=== PATIENT | male | born 1960 | race Caucasian/White ===

== ENCOUNTER 2017-03-31 14:07 | Inpatient (IN) | payer OTHER ==
[2017-03-31] MEDS ORDERED: ACTIVASE ONE (14:21)
[2017-03-31 14:25] LABS: Basophils % (Auto) 0.5 % (0.0-1.8); Eosinophils % (Auto) 0.6 % (0.0-4.3); Hematocrit 45.3 % (35.5-45.6); Hemoglobin 14.9 gm/dl (11.8-15.2); Mean Corpuscular HGB Conc 33 % (32-34); Mean Corpuscular Hemoglobin 31 pg (28-32); Mean Corpuscular Volume 94 fl (84-94); Platelet Count 265 K/mm3 (140-440); Red Blood Count 4.85 M/mm3 (3.65-5.03); Red Cell Distribution Width 13.7 % (13.2-15.2); White Blood Count 11.8 K/mm3 (4.5-11.0)
--- NOTE | 2017-03-31 14:30 | Cat Scan Report ---
FINAL REPORT PROCEDURE: CT HEAD/BRAIN WO CON TECHNIQUE: Computerized tomography of the head was performed without contrast material. HISTORY: R facial droop, R sided weakness COMPARISON: No prior studies are available for comparison. FINDINGS: Brain: There is no evidence of intracranial hemorrhage. No parenchymal hemorrhage is seen. No mass lesions or mass effect is identified. No abnormal extra-axial fluid collections or masses are seen. Small old lacunar infarct visualized in the right caudate nucleus anterior medially and in the right periventricular white matter. Density of the intracranial circulation appears fairly symmetric. There is some decreased density seen in the periventricular white matter without mass effect. This is fairly symmetric and does not exhibit any mass effect consistent with gliosis probably on the basis of microvascular disease or white matter changes of aging. Ventricles: The ventricles, sulcal pattern and fissures are prominent consistent with atrophy. Bones: No evidence of acute fracture. Paranasal sinuses: There is mild mucosal thickening in the inferior aspect of the right maxillary sinus. The paranasal sinuses otherwise appear clear. Mastoid air cells: clear IMPRESSION: Small old lacunar infarcts present on the right as described. There is evidence of mild atrophy and gliosis. No acute intracranial abnormalities are seen. If symptoms persist or worsen consider follow-up CT scan or MRI for further evaluation.
[2017-03-31] MEDS ORDERED: NORMODYNE IV ONE ×2 (14:31→14:45)
[2017-03-31 14:36] LABS: INR 0.95 (0.87-1.13)
[2017-03-31 14:37] LABS: Partial Thromboplastin Time 26.6 Sec. (24.2-36.6)
[2017-03-31] MEDS ORDERED: NACL 0.9% 50 ML ONE (14:39)
[2017-03-31 14:45] LABS: Anion Gap 16 mmol/L; BUN/Creatinine Ratio 13.07; Blood Urea Nitrogen 17 mg/dL (9-20); Carbon Dioxide 25 mmol/L (22-30); Chloride 101.3 mmol/L (98-107); Glucose 147 mg/dL (75-100); Potassium 3.6 mmol/L (3.6-5.0); Sodium 139 mmol/L (137-145)
[2017-03-31] MEDS ORDERED: ACTIVASE IV ONE ×2 (14:49)
[2017-03-31] MEDS ORDERED: NACL 0.9% IV ONE (14:49)
[2017-03-31] MEDS ORDERED: NACL ONE (15:13)
[2017-03-31] MEDS: CARDENE 50 MG in NACL 0.9% 250ML 230 ML IV SCH (15:35)
--- NOTE | 2017-03-31 16:20 | Cat Scan Report ---
FINAL REPORT PROCEDURE: CT ANGIO HEAD TECHNIQUE: Computerized tomographic angiography of the head was performed during the IV injection of iodinated nonionic contrast including image processing. The image data was postprocessed using 2-dimensional multiplanar reformatted (MPR) and 3-dimensional (MIP and/or volume rendered) techniques. HISTORY: large vessel stroke COMPARISON: No prior studies are available for comparison. FINDINGS: Minimal calcified plaquing seen in the left carotid siphon. The right carotid siphon is widely patent. Middle cerebral arteries bilaterally are widely patent. No evidence for occlusion. No changes are seen that would suggest aneurysm or vascular malformation. A1 segments and anterior cerebral arteries bilaterally appear widely patent. There is a very small caliber right vertebral artery and a dominant left vertebral artery. The basilar artery is widely patent. Both posterior cerebral arteries are widely patent. No abnormal enhancing lesions are seen in the brain parenchyma. No evidence of intracranial hemorrhage. Dural sinuses appear to be patent as well. IMPRESSION: Anterior and posterior circulation appear intact. No focal occlusion. No changes seen that would suggest aneurysm or vascular malformation. There is minimal atherosclerotic change seen in the left carotid siphon which otherwise appears widely patent. There is a dominant left vertebral artery, normal variant.
--- NOTE | 2017-03-31 16:25 | Cat Scan Report ---
FINAL REPORT PROCEDURE: CT ANGIO NECK TECHNIQUE: Computerized tomographic angiography of the neck was performed after the IV injection of iodinated nonionic contrast including image processing. The image data was postprocessed using 2-dimensional multiplanar reformatted (MPR) and 3-dimensional (MIP and/or volume rendered) techniques. HISTORY: large vessel stroke COMPARISON: No prior studies are available for comparison. Note: Assessment of carotid artery stenosis is based on measurement of the distal internal carotid artery diameter as the denominator for stenosis calculations and the [place] Symptomatic Carotid Endarterectomy Trial (NASCET) stenosis criteria . CPT 3100F FINDINGS: There is minimal calcified plaquing at the origin of the left subclavian artery. There is a common trunk for the brachiocephalic artery and the left common carotid artery. This is a normal variant. The origins appear widely patent. The common carotid arteries bilaterally are widely patent. There is a small amount a calcified plaquing visualized in the proximal end of the right internal carotid artery without significant stenosis. The left carotid bulb and left internal carotid artery are widely patent. There is a dominant left vertebral artery which appears widely patent. There is a small caliber right vertebral artery. This is a normal variant. IMPRESSION: Minimal plaquing seen proximal end of the right internal carotid artery. The carotid systems bilaterally are otherwise widely patent. Vertebral arteries are patent. There is a dominant left vertebral artery, normal variant.
--- NOTE | 2017-03-31 16:42 | Emergency Department Report ---
ED Neuro Deficit HPI - General Chief Complaint: Neuro Symptoms/Deficit Stated Complaint: POSS STROKE Time Seen by Provider: 03/31/17 14:08 Source: patient, EMS Mode of arrival: Stretcher Limitations: Other - History of Present Illness Initial Comments: 56-year-old male presents to the emergency department via EMS for evaluation of possible stroke. Patient states that at 11 AM this morning, he developed right- sided facial droop, slurred speech, and weakness in his right arm and leg. Symptoms have remained constant since onset. EMS reports that the patient's blood sugar was markedly elevated with a systolic pressure greater than 240. He had a normal fingerstick blood glucose. There are no other complaints. -: Sudden, This morning Time: 11:00 Last Observed Normal: 11:00 Location: speech, right face, right arm, right leg Presenting Symptoms: Present: Weak/Paralyzed One Side, Facial Droop/Numbness, Unable to Speak Clearly History of same: No Place: home Severity: severe Quality: weak, constant Improves With: none Worsens With: none On Anticoagulants: No Context: sudden onset Associated Symptoms: denies other symptoms Treatments Prior to Arrival: none - Related Data Home Medications: Home Medications Medication Instructions Recorded Confirmed Last Taken No Known Home Medications [No 03/31/17 03/31/17 Unknown Reported Home Medications] Allergies/Adverse Reactions: Allergies Allergy/AdvReac Type Severity Reaction Status Date / Time No Known Allergies Allergy Unverified 03/31/17 14:32 ED Review of Systems ROS: Stated complaint: POSS STROKE Other details as noted in HPI Comment: All other systems reviewed and negative Neurological: as per HPI, weakness ED Past Medical Hx - Past Medical History Previous Medical History?: Yes Hx Hypertension: Yes (noncompliant with meds x 1 year) - Surgical History Past Surgical History?: No - Family History Family history: no significant - Social History Smoking Status: Never Smoker Substance Use Type: None - Medications Home Medications: Home Medications Medication Instructions Recorded Confirmed Last Taken Type No Known Home Medications [No 03/31/17 03/31/17 Unknown History Reported Home Medications] ED Neuro Physical Exam - General Limitations: Other General appearance: alert, in no apparent distress Suspected Stroke: Yes - Head Head exam: Present: atraumatic, normocephalic - Eye Eye exam: Present: normal appearance, PERRL, EOMI - ENT ENT exam: Present: normal exam, normal orophraynx, mucous membranes moist - Neck Neck exam: Present: normal inspection, full ROM. Absent: tenderness - Respiratory Respiratory exam: Present: normal lung sounds bilaterally. Absent: respiratory distress - Cardiovascular Cardiovascular Exam: Present: regular rate, normal rhythm, normal heart sounds - GI/Abdominal GI/Abdominal exam: Present: soft, normal bowel sounds. Absent: distended, tenderness - Extremities Exam Extremities exam: Present: normal inspection, full ROM. Absent: tenderness - Back Exam Back exam: Present: normal inspection, full ROM. Absent: tenderness - Neurological Exam Neurological exam: Present: alert, oriented X3, motor sensory deficit (right facial droop, slurred speech, 1/5 strength right upper and right lower extremity. 5/5 strength left upper and lower extremity. Sensation grossly intact) - NIHSS Assessment Interval: Baseline 1a. Level of Consciousness: alert 1b. LOC Questions: answers correctly 1c. LOC Commands: performs tasks correctly 2. Best Gaze: normal 3. Visual: no visual loss 4. Facial Palsy: partial paralysis 5b. Motor Arm Right: no movement 5a. Motor Arm Left: no drift 6a. Motor Leg Left: no drift 6b. Motor Leg Right: no gravity effort 7. Limb Ataxia: absent 8. Sensory: normal 9. Best Language: no aphasia 10. Dysarthria: severe dysarthria 11. Extinction/Inattention: no abnormality Total Score: 11 Stroke Severity: Moderate Stroke - Skin Skin exam: Present: warm, dry, intact ED Course Vital Signs 03/31/17 03/31/17 03/31/17 14:17 14:20 14:26 Pulse Rate 103 H 100 H 104 H Pulse Rate [ Right Arm] Respiratory 15 18 20 Rate Respiratory Rate [Right Arm ] Blood Pressure 188/120 188/120 Blood Pressure [Left Arm] Blood Pressure [Right Arm] O2 Sat by Pulse 97 96 Oximetry O2 Sat by Pulse Oximetry [ Right Arm] 03/31/17 03/31/17 03/31/17 14:28 14:30 14:37 Pulse Rate 98 H 88 98 H Pulse Rate [ Right Arm] Respiratory 18 15 Rate Respiratory Rate [Right Arm ] Blood Pressure 188/120 205/131 188/120 Blood Pressure [Left Arm] Blood Pressure [Right Arm] O2 Sat by Pulse 96 96 Oximetry O2 Sat by Pulse Oximetry [ Right Arm] 03/31/17 03/31/17 03/31/17 14:38 14:45 14:47 Pulse Rate 78 98 H Pulse Rate [ Right Arm] Respiratory 18 15 Rate Respiratory Rate [Right Arm ] Blood Pressure 174/107 186/117 Blood Pressure [Left Arm] Blood Pressure [Right Arm] O2 Sat by Pulse 96 96 Oximetry O2 Sat by Pulse Oximetry [ Right Arm] 03/31/17 03/31/17 03/31/17 14:56 15:00 15:11 Pulse Rate 75 Pulse Rate [ 74 Right Arm] Respiratory 15 Rate Respiratory 13 Rate [Right Arm ] Blood Pressure 174/107 153/95 Blood Pressure 174/107 [Left Arm] Blood Pressure 153/95 [Right Arm] O2 Sat by Pulse 95 Oximetry O2 Sat by Pulse 96 Oximetry [ Right Arm] 03/31/17 03/31/17 03/31/17 15:24 15:26 15:30 Pulse Rate 74 80 Pulse Rate [ Right Arm] Respiratory 16 Rate Respiratory Rate [Right Arm ] Blood Pressure 185/109 185/109 Blood Pressure [Left Arm] Blood Pressure 153/98 [Right Arm] O2 Sat by Pulse 96 Oximetry O2 Sat by Pulse Oximetry [ Right Arm] 03/31/17 03/31/17 03/31/17 15:41 15:45 15:56 Pulse Rate 88 Pulse Rate [ 83 86 Right Arm] Respiratory 15 Rate Respiratory 16 15 Rate [Right Arm ] Blood Pressure 168/105 Blood Pressure [Left Arm] Blood Pressure 188/107 168/105 [Right Arm] O2 Sat by Pulse 98 Oximetry O2 Sat by Pulse 97 97 Oximetry [ Right Arm] 03/31/17 03/31/17 16:00 16:11 Pulse Rate 85 Pulse Rate [ Right Arm] Respiratory 13 Rate Respiratory Rate [Right Arm ] Blood Pressure 149/94 Blood Pressure [Left Arm] Blood Pressure 149/94 [Right Arm] O2 Sat by Pulse 96 Oximetry O2 Sat by Pulse Oximetry [ Right Arm] - Lab Data Result diagrams: 03/31/17 Unknown 03/31/17 Unknown Lab Results 03/31/17 03/31/17 03/31/17 Range/Units Unknown Unknown Unknown WBC 11.8 H (4.5-11.0) K/mm3 RBC 4.85 (3.65-5.03) M/mm3 Hgb 14.9 (11.8-15.2) gm/dl Hct 45.3 (35.5-45.6) % MCV 94 (84-94) fl MCH 31 (28-32) pg MCHC 33 (32-34) % RDW 13.7 (13.2-15.2) % Plt Count 265 (140-440) K/mm3 Lymph % (Auto) 9.5 L (13.4-35.0) % [place] % (Auto) 4.9 (0.0-7.3) % Eos % (Auto) 0.6 (0.0-4.3) % Baso % (Auto) 0.5 (0.0-1.8) % Lymph # 1.1 L (1.2-5.4) K/mm3 [place] # 0.6 (0.0-0.8) K/mm3 Eos # 0.1 (0.0-0.4) K/mm3 Baso # 0.1 (0.0-0.1) K/mm3 Seg Neutrophils % 84.5 H (40.0-70.0) % Seg Neutrophils # 10.0 H (1.8-7.7) K/mm3 PT 12.6 (12.2-14.9) Sec. INR 0.95 (0.87-1.13) APTT 26.6 (24.2-36.6) Sec. Thrombin Time (15.1-19.6) Sec. Sodium 139 (137-145) mmol/L Potassium 3.6 (3.6-5.0) mmol/L Chloride 101.3 (98-107) mmol/L Carbon Dioxide 25 (22-30) mmol/L Anion Gap 16 mmol/L BUN 17 (9-20) mg/dL Creatinine 1.3 (0.8-1.5) mg/dL Estimated GFR 58 ml/min BUN/Creatinine Ratio 13.07 % Glucose 147 H (75-100) mg/dL Calcium 9.0 (8.4-10.2) mg/dL Troponin T < 0.010 (0.00-0.029) ng/mL 03/31/17 Range/Units Unknown WBC (4.5-11.0) K/mm3 RBC (3.65-5.03) M/mm3 Hgb (11.8-15.2) gm/dl Hct (35.5-45.6) % MCV (84-94) fl MCH (28-32) pg MCHC (32-34) % RDW (13.2-15.2) % Plt Count (140-440) K/mm3 Lymph % (Auto) (13.4-35.0) % [place] % (Auto) (0.0-7.3) % Eos % (Auto) (0.0-4.3) % Baso % (Auto) (0.0-1.8) % Lymph # (1.2-5.4) K/mm3 [place] # (0.0-0.8) K/mm3 Eos # (0.0-0.4) K/mm3 Baso # (0.0-0.1) K/mm3 Seg Neutrophils % (40.0-70.0) % Seg Neutrophils # (1.8-7.7) K/mm3 PT (12.2-14.9) Sec. INR (0.87-1.13) APTT (24.2-36.6) Sec. Thrombin Time 16.6 (15.1-19.6) Sec. Sodium (137-145) mmol/L Potassium (3.6-5.0) mmol/L Chloride (98-107) mmol/L Carbon Dioxide (22-30) mmol/L Anion Gap mmol/L BUN (9-20) mg/dL Creatinine (0.8-1.5) mg/dL Estimated GFR ml/min BUN/Creatinine Ratio % Glucose (75-100) mg/dL Calcium (8.4-10.2) mg/dL Troponin T (0.00-0.029) ng/mL - EKG Data -: EKG Interpreted by Ri EKG shows normal: sinus rhythm, axis, intervals, ST-T waves Rate: normal When compared to previous EKG there are: previous EKG unavailable Interpretation: other (inferior infarct, age undetermined) - Radiology Data Radiology results: report reviewed, image reviewed CT of the head is discussed with the radiologist. No acute intracranial findings are noted. - Medical Decision Making Code stroke was activated on patient's arrival. Patient was hypertensive, but blood pressure responded to IV labetalol. Teleneurologist has evaluated the patient and consent has been obtained for TPA administration. Per neurology request, CTA of the head and neck have also been obtained showing no large vessel obstruction. Cardene drip has been ordered to maintain systolic blood pressure less than 185 mmHg and diastolic blood pressure less than 110 mmHg. Patient is to be admitted by the hospitalist. - Differential Diagnosis stroke, ICH Critical Care Time: Yes Critical care time in (mins) excluding proc time.: 90 Critical care attestation.: If time is entered above; I have spent that time in minutes in the direct care of this critically ill patient, excluding procedure time. Critical Care Time: The high probability of a clinically significant, sudden or life threatening deterioration of the cardiovascular and neurologic system(s) required my full and direct attention, intervention and personal management. The aggregate critical care time was 90 minutes. This time is in addition to time spent performing reported procedures but includes the following: [x] Data Review and interpretation [x] Patient assessment and monitoring of vital signs [x] Documentation [x] Medication orders and management ED Disposition Clinical Impression: Stroke Qualifiers: CVA mechanism: thrombosis Precerebral and cerebral artery: unspecified cerebral artery Qualified Code(s): I63.30 - Cerebral infarction due to thrombosis of unspecified cerebral artery Disposition: -09 OP ADMIT IP TO THIS HOSP Is pt being admited?: Yes Condition: Stable Time of Disposition: 17:16
[2017-03-31] MEDS ORDERED: ALUM-MAG HYDROX-SIMETH 200-200-20MG/5ML PO PRN (18:01)
[2017-03-31] MEDS ORDERED: MILK OF MAGNESIA PO PRN ×2 (18:01→18:03)
[2017-03-31] MEDS ORDERED: DULCOLAX PR PRN ×2 (18:01→18:03)
[2017-03-31] MEDS ORDERED: PHENERGAN PR PRN (18:03)
[2017-03-31] MEDS ORDERED: SODIUM CHLORIDE FLUSH SYRINGE 10 ML IV PRN (18:03)
[2017-03-31] MEDS ORDERED: ZOFRAN IV PRN (18:03)
[2017-03-31] MEDS ORDERED: REGLAN PO PRN (18:03)
--- NOTE | 2017-03-31 18:09 | History and Physical Report ---
History of Present Illness Date of examination: 03/31/17 Date of admission: 03/31/17 Chief complaint: Right sided numbness and weakness History of present illness: A 56-year-old male presents to the ER via EMS from home with right-sided numbness and weakness. Patient reported this morning after he reached home from work, he developed right-sided numbness, facial droop, slurred speech, and weakness in his right arm and leg. Patient also reported early during the week he had one episode where he felt his right leg was weak and described it as fell asleep not for a long time. It is very difficult to obtain a history from the patient because he is a poor historian and is exhibiting dysarthria and has what appears to be expressive aphasia. Patient denies headache, chest pain, fever, chills, nausea, vomiting, shortness of breath, abdominal pain. EMS reported patient had elevated systolic pressure of SBP > 240. Patient's Medical history hypertension and has not been on meds time one year, asthma as a child. Patient denies smoking or EtOH use. Past History Past Medical History: hypertension, other (Asthma as a child) Past Surgical History: No surgical history Social history: single, Lives alone, alcohol abuse (once in a while), full code. denies: smoking, prescription drug abuse, IV drug use Family history: cancer (Father - prostate CA), hypertension Medications and Allergies Allergies Allergy/AdvReac Type Severity Reaction Status Date / Time No Known Allergies Allergy Unverified 03/31/17 14:32 Home Medications Medication Instructions Recorded Confirmed Last Taken Type No Known Home Medications [No 03/31/17 03/31/17 Unknown History Reported Home Medications] Active Meds: Active Medications Al Hydrox/Mg Hydrox/Simethicone (Alum-Mag Hydrox-Simeth 393-530-03op/5ml) 30 ml PO Q4H PRN PRN Reason: Indigestion Bisacodyl (Dulcolax) 10 mg GA QDAY PRN PRN Reason: constipation unrelieved by MOM Nicardipine HCl 50 mg/ Sodium (Chloride) 250 mls @ 25 mls/hr IV TITR MARY; 5 MG/ HR PRN Reason: Protocol Last Titration: 03/31/17 16:57 Dose: 0 mg/hr, 0 mls/hr Magnesium Hydroxide (Milk Of Magnesia) 30 ml PO Q4H PRN PRN Reason: Constipation Review of Systems Constitutional: no weight gain, no fever, no chills, no sweats Ears, nose, mouth and throat: no nasal congestion, no nasal discharge, no epistaxis Cardiovascular: no chest pain, no palpitations, no syncope Respiratory: no shortness of breath Gastrointestinal: no abdominal pain, no nausea, no vomiting, no diarrhea, no constipation Genitourinary Male: no dysuria, no incontinence Rectal: no incontinence Musculoskeletal: no low back pain Integumentary: no rash, no sores, no wounds Endocrine: no fatigue Exam - Constitutional Vitals: Temp Pulse Resp BP Pulse Ox 89 16 163/109 97 03/31/17 17:41 03/31/17 17:41 03/31/17 17:41 03/31/17 17:41 General appearance: Present: mild distress - EENT Eyes: Present: PERRL ENT: hearing intact - Neck Neck: Present: supple, normal ROM - Respiratory Respiratory effort: normal Respiratory: bilateral: CTA - Cardiovascular Rhythm: regular Heart Sounds: Present: S1 & S2. Absent: rub, click - Extremities Extremities: pulses symmetrical, No edema Peripheral Pulses: within normal limits - Abdominal General gastrointestinal: Present: soft, non-tender, non-distended Male genitourinary: Present: normal - Integumentary Integumentary: Present: warm, dry - Musculoskeletal Musculoskeletal: right sided weakness (Right hand 1+ instrument checker strenth but not able to lift and hold the right arm up) - Psychiatric Psychiatric: appropriate mood/affect, intact judgment & insight - Neurologic Neurologic: focal deficits, other - Allied Health Allied health notes reviewed: nursing Results - Labs CBC & Chem 7: 03/31/17 Unknown 03/31/17 Unknown Labs: Laboratory Last Values WBC 11.8 K/mm3 (4.5-11.0) H 03/31/17 Unknown RBC 4.85 M/mm3 (3.65-5.03) 03/31/17 Unknown Hgb 14.9 gm/dl (11.8-15.2) 03/31/17 Unknown Hct 45.3 % (35.5-45.6) 03/31/17 Unknown MCV 94 fl (84-94) 03/31/17 Unknown MCH 31 pg (28-32) 03/31/17 Unknown MCHC 33 % (32-34) 03/31/17 Unknown RDW 13.7 % (13.2-15.2) 03/31/17 Unknown Plt Count 265 K/mm3 (140-440) 03/31/17 Unknown Lymph % (Auto) 9.5 % (13.4-35.0) L 03/31/17 Unknown [place] % (Auto) 4.9 % (0.0-7.3) 03/31/17 Unknown Eos % (Auto) 0.6 % (0.0-4.3) 03/31/17 Unknown Baso % (Auto) 0.5 % (0.0-1.8) 03/31/17 Unknown Lymph # 1.1 K/mm3 (1.2-5.4) L 03/31/17 Unknown [place] # 0.6 K/mm3 (0.0-0.8) 03/31/17 Unknown Eos # 0.1 K/mm3 (0.0-0.4) 03/31/17 Unknown Baso # 0.1 K/mm3 (0.0-0.1) 03/31/17 Unknown Seg Neutrophils % 84.5 % (40.0-70.0) H 03/31/17 Unknown Seg Neutrophils # 10.0 K/mm3 (1.8-7.7) H 03/31/17 Unknown PT 12.6 Sec. (12.2-14.9) 03/31/17 Unknown INR 0.95 (0.87-1.13) 03/31/17 Unknown APTT 26.6 Sec. (24.2-36.6) 03/31/17 Unknown Thrombin Time 16.6 Sec. (15.1-19.6) 03/31/17 Unknown Sodium 139 mmol/L (137-145) 03/31/17 Unknown Potassium 3.6 mmol/L (3.6-5.0) 03/31/17 Unknown Chloride 101.3 mmol/L (98-107) 03/31/17 Unknown Carbon Dioxide 25 mmol/L (22-30) 03/31/17 Unknown Anion Gap 16 mmol/L 03/31/17 Unknown BUN 17 mg/dL (9-20) 03/31/17 Unknown Creatinine 1.3 mg/dL (0.8-1.5) 03/31/17 Unknown Estimated GFR 58 ml/min 03/31/17 Unknown BUN/Creatinine Ratio 13.07 % 03/31/17 Unknown Glucose 147 mg/dL (75-100) H 03/31/17 Unknown Calcium 9.0 mg/dL (8.4-10.2) 03/31/17 Unknown Troponin T < 0.010 ng/mL (0.00-0.029) 03/31/17 Unknown -Head CTA-no aneurysm or vascular malformation noted -Neck CTA-minimal plaquing right internal carotid artery noted - Imaging and Cardiology CT Scan - head: image reviewed (No acute findings) Assessment and Plan Assessment and plan: -Acute ischemic stroke with infarct- EKG and chest x-ray Came in the ER, head CT , TPA administered in the ER, neck CTA, head CTA, carotid Doppler studies, consulted neurology, admitted to ICU, MRI/MRA, echo, lipid panel, UA, speech and swallow, consulted PT/OT On exam, patient alert and oriented 3. Patient noted to have right upper extremity weakness, patient was able to instrument checker 1+ strength but was not able to extend and hold his right arm up. Patient was able to raise both legs (off the bed) and hold for 5 seconds. Patient noted to have dysarthria. ? Expressive aphasia. -Accelerated Hypertension-permissive hypertension per stroke protocol, anti- hypertensive ordered when necessary with parameters -Acute dysarthria/dysphagia-speech and swallow evaluation ordered -DM 2-A1c ordered, monitor Accu-Checks, insulin sliding scale ordered -DVT prophylaxis- SCDs ordered Advance Directives: No (Full Code) VTE prophylaxis?: Chemical Plan of care discussed with patient/family: Yes
[2017-03-31] MEDS: ZOCOR PO SCH (21:55)
[2017-04-01] MEDS: TYLENOL PO PRN (01:52)
[2017-04-01 06:44] LABS: Basophils % (Auto) 0.5 % (0.0-1.8); Eosinophils % (Auto) 0.7 % (0.0-4.3); Hematocrit 42.7 % (35.5-45.6); Hemoglobin 14.4 gm/dl (11.8-15.2); Mean Corpuscular HGB Conc 34 % (32-34); Mean Corpuscular Hemoglobin 31 pg (28-32); Mean Corpuscular Volume 93 fl (84-94); Platelet Count 251 K/mm3 (140-440); Red Blood Count 4.61 M/mm3 (3.65-5.03); Red Cell Distribution Width 13.9 % (13.2-15.2); White Blood Count 11.9 K/mm3 (4.5-11.0)
[2017-04-01 06:53] LABS: Anion Gap 19 mmol/L; Blood Urea Nitrogen 15 mg/dL (9-20); Calcium 8.5 mg/dL (8.4-10.2); Carbon Dioxide 24 mmol/L (22-30); Chloride 99.8 mmol/L (98-107); Glucose 110 mg/dL (75-100); Potassium 3.7 mmol/L (3.6-5.0); Sodium 139 mmol/L (137-145)
[2017-04-01 07:19] LABS: Cholesterol 159 mg/dL (50-199); HDL Cholesterol 47 mg/dL (40-59); LDL Cholesterol,Direct 96 mg/dL (50-130); Triglycerides 81 mg/dL (2-149)
[2017-04-01] MEDS: CARDENE 50 MG in NACL 0.9% 250ML 230 ML IV SCH (12:57)
--- NOTE | 2017-04-01 14:26 | Progress Note ---
Subjective Date of service: 04/01/17 Interval history: Seen and examined at bedside; 24 hour events reviewed; nursing and respiratory care staff consulted; no adverse overnight events reported to me; Objective Vital Signs - 12hr 04/01/17 04/01/17 04/01/17 02:30 02:45 03:00 Temperature Pulse Rate 76 74 89 Pulse Rate [ From Monitor] Pulse Rate [ Left Arm] Pulse Rate [ 79 Right Arm] Respiratory 15 14 16 Rate Respiratory Rate [Left Arm] Respiratory 15 Rate [Right Arm ] Blood Pressure 135/83 135/86 147/99 Blood Pressure [Left Arm] Blood Pressure 147/99 [Right Arm] O2 Sat by Pulse 96 96 94 Oximetry O2 Sat by Pulse Oximetry [Left Arm] O2 Sat by Pulse 99 Oximetry [ Right Arm] 04/01/17 04/01/17 04/01/17 03:15 03:30 03:45 Temperature Pulse Rate 76 92 H 89 Pulse Rate [ From Monitor] Pulse Rate [ Left Arm] Pulse Rate [ Right Arm] Respiratory 15 20 14 Rate Respiratory Rate [Left Arm] Respiratory Rate [Right Arm ] Blood Pressure 150/90 155/98 156/115 Blood Pressure [Left Arm] Blood Pressure [Right Arm] O2 Sat by Pulse 96 97 94 Oximetry O2 Sat by Pulse Oximetry [Left Arm] O2 Sat by Pulse Oximetry [ Right Arm] 04/01/17 04/01/17 04/01/17 04:00 04:15 04:30 Temperature 98.5 F Pulse Rate 74 79 75 Pulse Rate [ 77 From Monitor] Pulse Rate [ Left Arm] Pulse Rate [ 77 Right Arm] Respiratory 11 L 15 15 Rate Respiratory Rate [Left Arm] Respiratory 19 Rate [Right Arm ] Blood Pressure 152/95 140/86 140/90 Blood Pressure [Left Arm] Blood Pressure 152/95 [Right Arm] O2 Sat by Pulse 98 94 96 Oximetry O2 Sat by Pulse Oximetry [Left Arm] O2 Sat by Pulse 97 Oximetry [ Right Arm] 04/01/17 04/01/17 04/01/17 04:45 05:00 05:15 Temperature Pulse Rate 70 75 82 Pulse Rate [ From Monitor] Pulse Rate [ Left Arm] Pulse Rate [ 74 Right Arm] Respiratory 13 14 16 Rate Respiratory Rate [Left Arm] Respiratory 16 Rate [Right Arm ] Blood Pressure 155/94 155/97 165/97 Blood Pressure [Left Arm] Blood Pressure 155/94 [Right Arm] O2 Sat by Pulse 96 95 94 Oximetry O2 Sat by Pulse Oximetry [Left Arm] O2 Sat by Pulse 97 Oximetry [ Right Arm] 04/01/17 04/01/17 04/01/17 05:30 05:45 06:00 Temperature Pulse Rate 78 71 74 Pulse Rate [ 79 From Monitor] Pulse Rate [ Left Arm] Pulse Rate [ 70 Right Arm] Respiratory 14 13 15 Rate Respiratory Rate [Left Arm] Respiratory 16 Rate [Right Arm ] Blood Pressure 149/90 135/91 145/97 Blood Pressure [Left Arm] Blood Pressure 145/97 [Right Arm] O2 Sat by Pulse 95 96 95 Oximetry O2 Sat by Pulse Oximetry [Left Arm] O2 Sat by Pulse 97 Oximetry [ Right Arm] 04/01/17 04/01/17 04/01/17 06:16 06:30 06:45 Temperature Pulse Rate 80 69 70 Pulse Rate [ From Monitor] Pulse Rate [ Left Arm] Pulse Rate [ Right Arm] Respiratory 16 15 15 Rate Respiratory Rate [Left Arm] Respiratory Rate [Right Arm ] Blood Pressure 165/113 165/98 158/99 Blood Pressure [Left Arm] Blood Pressure [Right Arm] O2 Sat by Pulse 96 96 96 Oximetry O2 Sat by Pulse Oximetry [Left Arm] O2 Sat by Pulse Oximetry [ Right Arm] 04/01/17 04/01/17 04/01/17 07:00 07:15 07:30 Temperature Pulse Rate 72 80 77 Pulse Rate [ From Monitor] Pulse Rate [ Left Arm] Pulse Rate [ 71 Right Arm] Respiratory 16 16 11 L Rate Respiratory Rate [Left Arm] Respiratory 16 Rate [Right Arm ] Blood Pressure 153/90 149/99 173/112 Blood Pressure [Left Arm] Blood Pressure 153/90 [Right Arm] O2 Sat by Pulse 94 93 98 Oximetry O2 Sat by Pulse Oximetry [Left Arm] O2 Sat by Pulse 94 Oximetry [ Right Arm] 04/01/17 04/01/17 04/01/17 07:45 08:00 08:15 Temperature Pulse Rate 77 75 71 Pulse Rate [ From Monitor] Pulse Rate [ Left Arm] Pulse Rate [ 149 H Right Arm] Respiratory 15 16 17 Rate Respiratory Rate [Left Arm] Respiratory 20 Rate [Right Arm ] Blood Pressure 164/107 157/100 173/106 Blood Pressure [Left Arm] Blood Pressure [Right Arm] O2 Sat by Pulse 98 96 96 Oximetry O2 Sat by Pulse Oximetry [Left Arm] O2 Sat by Pulse 100 Oximetry [ Right Arm] 04/01/17 04/01/17 04/01/17 08:22 08:30 08:45 Temperature 98.4 F Pulse Rate 76 88 Pulse Rate [ From Monitor] Pulse Rate [ Left Arm] Pulse Rate [ Right Arm] Respiratory 16 16 Rate Respiratory Rate [Left Arm] Respiratory Rate [Right Arm ] Blood Pressure 157/93 166/115 Blood Pressure [Left Arm] Blood Pressure [Right Arm] O2 Sat by Pulse 96 92 Oximetry O2 Sat by Pulse Oximetry [Left Arm] O2 Sat by Pulse Oximetry [ Right Arm] 04/01/17 04/01/17 04/01/17 09:00 09:15 09:30 Temperature Pulse Rate 86 81 86 Pulse Rate [ From Monitor] Pulse Rate [ Left Arm] Pulse Rate [ Right Arm] Respiratory 16 15 17 Rate Respiratory Rate [Left Arm] Respiratory Rate [Right Arm ] Blood Pressure 166/115 191/106 177/112 Blood Pressure [Left Arm] Blood Pressure 192/126 [Right Arm] O2 Sat by Pulse 95 96 97 Oximetry O2 Sat by Pulse Oximetry [Left Arm] O2 Sat by Pulse Oximetry [ Right Arm] 04/01/17 04/01/17 04/01/17 09:45 10:00 10:15 Temperature Pulse Rate 88 79 93 H Pulse Rate [ From Monitor] Pulse Rate [ Left Arm] Pulse Rate [ 94 H Right Arm] Respiratory 17 16 13 Rate Respiratory Rate [Left Arm] Respiratory 15 Rate [Right Arm ] Blood Pressure 166/102 149/93 162/104 Blood Pressure [Left Arm] Blood Pressure 164/102 [Right Arm] O2 Sat by Pulse 95 97 96 Oximetry O2 Sat by Pulse Oximetry [Left Arm] O2 Sat by Pulse 96 Oximetry [ Right Arm] 04/01/17 04/01/17 04/01/17 10:30 10:45 11:00 Temperature Pulse Rate 93 H 96 H 90 Pulse Rate [ From Monitor] Pulse Rate [ Left Arm] Pulse Rate [ 84 Right Arm] Respiratory 16 16 18 Rate Respiratory Rate [Left Arm] Respiratory 16 Rate [Right Arm ] Blood Pressure 176/104 162/98 163/95 Blood Pressure [Left Arm] Blood Pressure 163/95 [Right Arm] O2 Sat by Pulse 96 97 94 Oximetry O2 Sat by Pulse Oximetry [Left Arm] O2 Sat by Pulse 98 Oximetry [ Right Arm] 06/18/17 06/18/17 06/18/17 11:15 11:30 11:45 Temperature Pulse Rate 90 96 H 96 H Pulse Rate [ From Monitor] Pulse Rate [ Left Arm] Pulse Rate [ Right Arm] Respiratory 15 15 15 Rate Respiratory Rate [Left Arm] Respiratory Rate [Right Arm ] Blood Pressure 167/95 165/92 167/99 Blood Pressure [Left Arm] Blood Pressure [Right Arm] O2 Sat by Pulse 95 96 95 Oximetry O2 Sat by Pulse Oximetry [Left Arm] O2 Sat by Pulse Oximetry [ Right Arm] 04/01/17 04/01/17 04/01/17 12:00 12:15 12:30 Temperature Pulse Rate 88 84 100 H Pulse Rate [ From Monitor] Pulse Rate [ Left Arm] Pulse Rate [ 74 Right Arm] Respiratory 15 15 18 Rate Respiratory Rate [Left Arm] Respiratory 16 Rate [Right Arm ] Blood Pressure 151/93 158/88 167/108 Blood Pressure [Left Arm] Blood Pressure 158/88 [Right Arm] O2 Sat by Pulse 94 95 98 Oximetry O2 Sat by Pulse Oximetry [Left Arm] O2 Sat by Pulse 94 Oximetry [ Right Arm] 04/01/17 04/01/17 04/01/17 12:36 12:46 13:00 Temperature 98.5 F Pulse Rate 108 H 81 Pulse Rate [ From Monitor] Pulse Rate [ Left Arm] Pulse Rate [ 84 Right Arm] Respiratory 17 14 Rate Respiratory Rate [Left Arm] Respiratory 14 Rate [Right Arm ] Blood Pressure 196/114 154/85 Blood Pressure [Left Arm] Blood Pressure 143/89 [Right Arm] O2 Sat by Pulse 98 95 Oximetry O2 Sat by Pulse Oximetry [Left Arm] O2 Sat by Pulse 97 Oximetry [ Right Arm] 04/01/17 04/01/17 04/01/17 13:15 13:30 13:45 Temperature Pulse Rate 84 82 83 Pulse Rate [ From Monitor] Pulse Rate [ Left Arm] Pulse Rate [ Right Arm] Respiratory 14 15 17 Rate Respiratory Rate [Left Arm] Respiratory Rate [Right Arm ] Blood Pressure 158/89 143/89 154/89 Blood Pressure [Left Arm] Blood Pressure [Right Arm] O2 Sat by Pulse 95 96 94 Oximetry O2 Sat by Pulse Oximetry [Left Arm] O2 Sat by Pulse Oximetry [ Right Arm] 04/01/17 14:00 Temperature Pulse Rate 90 Pulse Rate [ From Monitor] Pulse Rate [ 85 Left Arm] Pulse Rate [ Right Arm] Respiratory 15 Rate Respiratory 11 L Rate [Left Arm] Respiratory Rate [Right Arm ] Blood Pressure 156/96 Blood Pressure 156/96 [Left Arm] Blood Pressure [Right Arm] O2 Sat by Pulse 91 Oximetry O2 Sat by Pulse 97 Oximetry [Left Arm] O2 Sat by Pulse Oximetry [ Right Arm] CBC and BMP: 04/01/17 05:30 04/01/17 05:30 ABG, PT/INR, D-dimer: PT/INR, D-dimer PT 12.6 Sec. (12.2-14.9) 03/31/17 Unknown INR 0.95 (0.87-1.13) 03/31/17 Unknown Abnormal lab findings: Abnormal Labs 03/31/17 03/31/17 04/01/17 Unknown Unknown 05:30 WBC 11.8 H 11.9 H Lymph % (Auto) 9.5 L Lymph # 1.1 L [place] # 0.9 H Seg Neutrophils % 84.5 H 76.5 H Seg Neutrophils # 10.0 H 9.1 H Glucose 147 H 04/01/17 05:30 WBC Lymph % (Auto) Lymph # [place] # Seg Neutrophils % Seg Neutrophils # Glucose 110 H
--- NOTE | 2017-04-01 14:51 | Consultation ---
History of Present Illness Consult date: 04/01/17 Requesting physician: ZANA COOK Reason for consult: other (CVA s/p TpA) History of present illness: PULMONARY/CCM CONSULT NOTE (Full dictation # [id number]) Please see dictated notes for full details Past History Past Medical History: hypertension, other (Asthma as a child) Past Surgical History: No surgical history Social history: single, Lives alone, alcohol abuse (once in a while), full code. denies: smoking, prescription drug abuse, IV drug use Family history: cancer (Father - prostate CA), hypertension Medications and Allergies Allergies Allergy/AdvReac Type Severity Reaction Status Date / Time No Known Allergies Allergy Unverified 03/31/17 14:32 Home Medications Medication Instructions Recorded Confirmed Last Taken Type No Known Home Medications [No 03/31/17 03/31/17 Unknown History Reported Home Medications] Active Meds: Active Medications Acetaminophen (Tylenol) 650 mg PO Q4H PRN PRN Reason: Pain, Mild (1-3) Last Admin: 04/01/17 01:52 Dose: 650 mg Al Hydrox/Mg Hydrox/Simethicone (Alum-Mag Hydrox-Simeth [id number]/5ml) 30 ml PO Q4H PRN PRN Reason: Indigestion Bisacodyl (Dulcolax) 10 mg MT QDAY PRN PRN Reason: constipation unrelieved by MOM Bisacodyl (Dulcolax) 10 mg MT QDAY PRN PRN Reason: Constipation Nicardipine HCl 50 mg/ Sodium (Chloride) 250 mls @ 25 mls/hr IV TITR MARY; 5 MG/ HR PRN Reason: Protocol Last Admin: 04/01/17 12:57 Dose: 5 mg/hr, 25 mls/hr Magnesium Hydroxide (Milk Of Magnesia) 30 ml PO Q4H PRN PRN Reason: Constipation Magnesium Hydroxide (Milk Of Magnesia) 30 ml PO Q4H PRN PRN Reason: Constipation Metoclopramide HCl (Reglan) 10 mg PO Q6H PRN PRN Reason: Nausea And Vomiting Ondansetron HCl (Zofran) 4 mg IV Q8H PRN PRN Reason: N/V unrelieved by Reglan Last Admin: 04/01/17 01:54 Dose: 4 mg Promethazine HCl (Phenergan) 25 mg MT Q6H PRN PRN Reason: Nausea And Vomiting Simvastatin (Zocor) 20 mg PO QHS MARY Last Admin: 03/31/17 21:55 Dose: 20 mg Sodium Chloride (Sodium Chloride Flush Syringe 10 Ml) 10 ml IV PRN PRN PRN Reason: LINE FLUSH Physical Examination Vital signs: Vital Signs Pulse Resp 103 H 15 03/31/17 14:17 03/31/17 14:17 Results - Laboratory Findings CBC and BMP: 04/01/17 05:30 04/01/17 05:30 PT/INR, D-dimer PT 12.6 Sec. (12.2-14.9) 03/31/17 Unknown INR 0.95 (0.87-1.13) 03/31/17 Unknown Abnormal lab findings: Abnormal Labs 03/31/17 03/31/17 04/01/17 Unknown Unknown 05:30 WBC 11.8 H 11.9 H Lymph % (Auto) 9.5 L Lymph # 1.1 L [place] # 0.9 H Seg Neutrophils % 84.5 H 76.5 H Seg Neutrophils # 10.0 H 9.1 H Glucose 147 H 04/01/17 05:30 WBC Lymph % (Auto) Lymph # [place] # Seg Neutrophils % Seg Neutrophils # Glucose 110 H
--- NOTE | 2017-04-01 16:58 | Progress Note ---
Assessment and Plan Assessment and plan: A 56-year-old male presents to the ER via EMS from home with right-sided numbness and weakness. Patient reported this morning after he reached home from work, he developed right-sided numbness, facial droop, slurred speech, and weakness in his right arm and leg. Patient also reported early during the week he had one episode where he felt his right leg was weak and described it as fell asleep not for a long time. It is very difficult to obtain a history from the patient because he is a poor historian and is exhibiting dysarthria and has what appears to be expressive aphasia. Patient denies headache, chest pain, fever, chills, nausea, vomiting, shortness of breath, abdominal pain. EMS reported patient had elevated systolic pressure of SBP > 240. Patient's Medical history hypertension and has not been on meds time one year, asthma as a child. Patient denies smoking or EtOH use. -Acute ischemic stroke with infarct-status post TPA CT brain and neck are unremarkable. Awaiting MRI. Continue ICU care. PT OT speech consult pending. , MRI/MRA, echo, lipid panel, UA, speech and swallow, she was still with dysarthria. We'll obtain neurologic consultation.start on Statin and ASA on Post TPA protocol. -Accelerated Hypertension-permissive hypertension per stroke protocol, anti- hypertensive ordered when necessary with parameters -Acute dysarthria/dysphagia-speech and swallow evaluation ordered -DM 2-A1c ordered, monitor Accu-Checks, insulin sliding scale ordered -DVT/GI prophylaxis History Interval history: Patient seen and examined, remains with mild slurred speech, right arm weakness. No chest pain or arrythmia Hospitalist Physical - Physical exam Narrative exam: VITAL SIGNS: Reviewed. GENERAL: The patient appeared well nourished and normally developed. Vital signs as documented. HEAD: No signs of head trauma. EYES: Pupils are equal. Extraocular motions intact. EARS: Hearing grossly intact. MOUTH: Oropharynx is normal. NECK: No adenopathy, no JVD. CHEST: Chest with clear breath sounds bilaterally. No wheezes, rales, or rhonchi. CARDIAC: Regular rate and rhythm. S1 and S2, without murmurs, gallops, or rubs. VASCULAR: No Edema. Peripheral pulses normal and equal in all extremities. ABDOMEN: Soft, without detectable tenderness. No sign of distention. No rebound or guarding, and no masses palpated. Bowel Sounds normal. MUSCULOSKELETAL: Good range of motion of all major joints. Extremities without clubbing, cyanosis or edema. NEUROLOGIC EXAM: Alert and oriented x 3. The strengths on the right upper extremity is 3 over 5 and 5/5 from the lower extremity bilaterally. Speech is slurred. Follows commands. PSYCHIATRIC: Mood normal. SKIN: No rash or lesions. - Constitutional Vitals: Temp Pulse Resp BP Pulse Ox 98.5 F 83 14 153/101 94 04/01/17 12:36 04/01/17 15:00 04/01/17 15:00 04/01/17 15:00 04/01/17 15:00 General appearance: Present: mild distress Results - Labs CBC & Chem 7: 04/01/17 05:30 04/01/17 05:30 Labs: Laboratory Last Values WBC 11.9 K/mm3 (4.5-11.0) H 04/01/17 05:30 RBC 4.61 M/mm3 (3.65-5.03) 04/01/17 05:30 Hgb 14.4 gm/dl (11.8-15.2) 04/01/17 05:30 Hct 42.7 % (35.5-45.6) 04/01/17 05:30 MCV 93 fl (84-94) 04/01/17 05:30 MCH 31 pg (28-32) 04/01/17 05:30 MCHC 34 % (32-34) 04/01/17 05:30 RDW 13.9 % (13.2-15.2) 04/01/17 05:30 Plt Count 251 K/mm3 (140-440) 04/01/17 05:30 Lymph % (Auto) 15.0 % (13.4-35.0) 04/01/17 05:30 [place] % (Auto) 7.3 % (0.0-7.3) 04/01/17 05:30 Eos % (Auto) 0.7 % (0.0-4.3) 04/01/17 05:30 Baso % (Auto) 0.5 % (0.0-1.8) 04/01/17 05:30 Lymph # 1.8 K/mm3 (1.2-5.4) 04/01/17 05:30 [place] # 0.9 K/mm3 (0.0-0.8) H 04/01/17 05:30 Eos # 0.1 K/mm3 (0.0-0.4) 04/01/17 05:30 Baso # 0.1 K/mm3 (0.0-0.1) 04/01/17 05:30 Seg Neutrophils % 76.5 % (40.0-70.0) H 04/01/17 05:30 Seg Neutrophils # 9.1 K/mm3 (1.8-7.7) H 04/01/17 05:30 PT 12.6 Sec. (12.2-14.9) 03/31/17 Unknown INR 0.95 (0.87-1.13) 03/31/17 Unknown APTT 26.6 Sec. (24.2-36.6) 03/31/17 Unknown Thrombin Time 16.6 Sec. (15.1-19.6) 03/31/17 Unknown Sodium 139 mmol/L (137-145) 04/01/17 05:30 Potassium 3.7 mmol/L (3.6-5.0) 04/01/17 05:30 Chloride 99.8 mmol/L (98-107) 04/01/17 05:30 Carbon Dioxide 24 mmol/L (22-30) 04/01/17 05:30 Anion Gap 19 mmol/L 04/01/17 05:30 BUN 15 mg/dL (9-20) 04/01/17 05:30 Creatinine 1.2 mg/dL (0.8-1.5) 04/01/17 05:30 Estimated GFR > 60 ml/min 04/01/17 05:30 BUN/Creatinine Ratio 12.50 % 04/01/17 05:30 Glucose 110 mg/dL (75-100) H 04/01/17 05:30 Calcium 8.5 mg/dL (8.4-10.2) 04/01/17 05:30 Troponin T < 0.010 ng/mL (0.00-0.029) 03/31/17 Unknown Triglycerides 81 mg/dL (2-149) 04/01/17 05:30 Cholesterol 159 mg/dL (50-199) 04/01/17 05:30 LDL Cholesterol Direct 96 mg/dL (50-130) 04/01/17 05:30 HDL Cholesterol 47 mg/dL (40-59) 04/01/17 05:30 Cholesterol/HDL Ratio 3.38 % 04/01/17 05:30 - Imaging and Cardiology CT Scan - head: image reviewed (no acute pathology noted)
[2017-04-01] MEDS: PEPCID IV SCH (19:18)
[2017-04-02] MEDS: ZOCOR PO SCH ×2 (00:50→22:42)
[2017-04-02] MEDS: TYLENOL PO PRN (01:04)
--- NOTE | 2017-04-02 03:28 | Consultation ---
PULMONARY CRITICAL CARE CONSULTING PHYSICIAN: Dr. Ocampo. REASON FOR CONSULTATION: Acute CVA, status post TPA need for ICU observation. CHIEF COMPLAINT AND HISTORY OF PRESENT ILLNESS: The patient is a 56-year-old male with past medical history significant only for a diagnosis of hypertension for which he has been noncompliant with his meds for about a year. He came to the Emergency Room via EMS about 11:00 a.m. on the day of presentation which is like 2-3 hours before he presented. He developed a right-sided facial droop, slurred speech, weakness in his right arm and leg. Symptoms remained constant. The patient's blood pressure was also markedly elevated with a systolic greater than 240. In the Emergency Room, he was evaluated, met criteria for TPA, received TPA uneventfully and was transferred to the intensive care unit. When I stopped by to see him, he was resting peacefully in bed. He was still speaking with a little bit of a slurred speech. He felt stronger in his arms and legs. He denied any acute chest pain. He denied any trauma. He denied any nausea, vomiting. He denied any fevers or chills. He denies any illicit drug use or abuse. That really is as much of the history of presentation as I have. PAST MEDICAL HISTORY: Hypertension. PAST SURGICAL HISTORY: Denied. MEDICATIONS: He was on at the time I stopped by to see him, according to the medication administration record included the following: Tylenol 650 mg p.o. q. 4h. p.r.n. mild pain, Dulcolax 10 mg per rectum every day p.r.n., p.r.n. milk of magnesia, Reglan 10 mg p.o. q. 6 hours p.r.n. nausea, vomiting and was on nicardipine drip at 5 mg an hour, Zofran 4 mg IV q. 8 hours p.r.n., Zocor 20 mg p.o. at bedtime, and p.r.n. sodium chloride for flushes. ALLERGIES: No known drug allergies. DIET: Well-built gentleman. Denies acute weight loss or gain in the preceding few weeks to months. FAMILY AND SOCIAL HISTORY: Lives in the community. Drinks alcohol occasionally. Denied tobacco or illicit drug use or abuse. There is a family history of hypertension and prostate cancer in his dad. REVIEW OF SYSTEMS: No overt loss of consciousness. No new onset seizures. He has a new right-sided focal weakness. No gross hematochezia or melena. No gross hematuria or dysuria. No hematemesis. No hemoptysis. No palpitations. A complete 14-system review of systems obtained. Pertinent positives and/or negatives as in body of the history above, otherwise they are noncontributory. PHYSICAL EXAMINATION: VITAL SIGNS: At presentation in the Emergency Room, he was afebrile. Initial temperature recorded was 98.5, pulse was 103, respiratory rate 15, blood pressure 188/120, oxygen sats were 97%, inspired oxygen concentration was not recorded. HEAD, EYES, EARS, NOSE AND THROAT: Pupils are equal, round, about 3-4 mm, reactive to light. Extraocular muscle movements appeared intact. Grossly, there were no palpable lymph nodes in the supraclavicular, submandibular lymph node chains. LUNGS: Auscultation of both lung [place] were clear. HEART: Heart sounds 1 and 2 are heard at the time of my evaluation, regular rate and rhythm. ABDOMEN: Soft, full, bowel sounds are positive, nontender. EXTREMITIES: Without overt digital clubbing, cyanosis, or pedal edema. NEUROLOGIC: The power in the right lower extremity is about 4/5, in the right upper extremity is about 3/5. PSYCHIATRIC: He was in good spirits and affect appeared appropriate. LABORATORY DATA: From my review are as follows: Admission white cell count 11,800, hemoglobin 14.9, hematocrit 45.3, platelets 265. INR 0.95. Serum sodium was 139, potassium 3.6, chloride 101, bicarbonate 25, BUN 17, creatinine 1.3, glucose 147. LDL cholesterol was 96. No microbiology studies. A CT of the head was done at presentation and small old lacunar infarcts on the right side. No acute changes were found. CTA of the head and neck was also done. Anterior and posterior circulation appeared intact. No focal consolidation, dominant left vertebral arteries, normal variant. ASSESSMENT AND PLAN: We have a middle-aged gentleman in with an acute cerebrovascular accident, status post TPA appropriately being observed in the ICU with neuro checks is doing relatively well. I will add GI prophylaxis to the mix. I have explained the importance of evaluating himself for any obstructive sleep apnea that he may have as he gives me a history of snoring and he has been told he needs that evaluation in the past. I have also explained the importance of using his antihypertensive medication, continuing to abstain from tobacco. We will keep him in the intensive care unit until he is free from the observation time and at that point he can be transferred out. Thank you very much for the consult, Dr. Ocampo. We will follow along and make further recommendations as picture progresses/becomes clearer. JOB# [id number] REMBERTO/JOSSELYN
[2017-04-02] MEDS: CARDENE 50 MG in NACL 0.9% 250ML 230 ML IV SCH ×2 (07:05→12:12)
--- NOTE | 2017-04-02 10:48 | Admit Criteria Form ---
Admission Criteria Documentation: STROKE: ISCHEMIC Clinical Indications for Admission to Inpatient Care (Place 'X' for any and all applicable criteria): Admission is indicated for ANY ONE of the following(1)(2)(3)(4): [X]I. Acute stroke Extended stay beyond goal length of stay may be needed for(1)(2) [ ]a) Major deficit or clinical deterioration [ ]b) Hospital-acquired infection (eg, urinary tract infection, pneumonia) [ ]c) Embolic cause of stroke [ ]d) Venous thromboembolism(9) [ ]e) Seizures [ ]f) Bleeding (eg, cerebral) [ ]g) Increased intracranial pressure [ ]h) Comorbidities [ ]i) Surgical intervention The original [facility] content created by [employer] has been revised. The portions of the content which have been revised are identified through the use of italic text or in bold, and [facility] has neither reviewed nor approved the modified material. All other unmodified content is copyright [facility]. Please see references footnoted in the original [facility] edition 2016 Admission Criteria Met: Yes
[2017-04-02] MEDS: LOPRESSOR PO SCH ×2 (12:10→22:40)
[2017-04-02] MEDS: PEPCID IV SCH (12:11)
--- NOTE | 2017-04-02 12:26 | Progress Note ---
Assessment and Plan - Patient Problems (1) Acute ischemic stroke Current Visit: Yes Status: Acute Plan to address problem: s/p TPA Follow up MRI/MRA SCDs for VTE prophylaxis Secondary stroke prophylaxis PT/OT to evaluate and treat Speech language pathologist to evaluate swallow and speech function Continue to monitor in the ICU fro possible complications of TPA therapy including hemorrhagic conversion with new deficits (2) Malignant hypertension Current Visit: Yes Status: Acute Plan to address problem: Add metoprolol to therapy for better blood pressure control and to wean off cardene infusion Need for medical compliance to therapies, and the consequences of non-adherence discussed with him Subjective Date of service: 04/02/17 Principal diagnosis: CVA s/p TPA, Malignant HTN Interval history: Seen and examined. Vitals, labs, medications, chart, reviewed. Neurologic recovery with TPA Continues to require cardene infusion for blood pressure control Discussed in interdisciplinary ICU rounds. Patient denies any chest pain, n headaches, no shortness of breath, no bleeding. Mother at the bedside Objective - Exam Narrative Exam: GENERAL: The patient appeared well nourished and normally developed. Sitting up in a chair HEAD: No signs of head trauma, atraumatic, normocephalic. EYES: Pupils are equal. Extraocular motions intact. EARS: Hearing grossly intact. MOUTH: Oropharynx is normal. NECK: No adenopathy, no JVD. CHEST: Chest with clear breath sounds bilaterally. No wheezes, rales, or rhonchi. CARDIAC: Regular rate and rhythm. S1 and S2, without murmurs, gallops, or rubs. VASCULAR: No Edema. Peripheral pulses normal and equal in all extremities. ABDOMEN: Soft, without detectable tenderness. No sign of distention. No rebound or guarding, and no masses palpated. Bowel Sounds normal. MUSCULOSKELETAL: Good range of motion of all major joints. Extremities without clubbing, cyanosis or edema. NEUROLOGIC EXAM: Alert and oriented x 3. The strengths on the right upper extremity is 3 over 5 and 5/5 from the lower extremity bilaterally. Speech is slurred. left facial droop Follows commands. PSYCHIATRIC: Normal affect SKIN: No rash or lesions. Vital Signs - 12hr 04/02/17 04/02/17 04/02/17 00:30 00:45 01:00 Temperature Pulse Rate 94 H 96 H 93 H Pulse Rate [ From Monitor] Respiratory 13 19 14 Rate Blood Pressure 163/106 164/102 170/102 O2 Sat by Pulse 97 96 96 Oximetry 04/02/17 04/02/17 04/02/17 01:04 01:15 01:30 Temperature Pulse Rate 85 81 Pulse Rate [ From Monitor] Respiratory 14 14 16 Rate Blood Pressure 149/91 148/88 O2 Sat by Pulse 96 92 Oximetry 04/02/17 04/02/17 04/02/17 01:45 02:00 02:15 Temperature Pulse Rate 83 83 81 Pulse Rate [ From Monitor] Respiratory 15 16 17 Rate Blood Pressure 139/85 142/89 149/87 O2 Sat by Pulse 93 93 93 Oximetry 04/02/17 04/02/17 04/02/17 02:30 02:45 03:00 Temperature Pulse Rate 81 80 81 Pulse Rate [ From Monitor] Respiratory 14 15 15 Rate Blood Pressure 149/96 139/86 146/89 O2 Sat by Pulse 95 94 93 Oximetry 04/02/17 04/02/17 04/02/17 03:15 03:30 03:45 Temperature Pulse Rate 81 78 70 Pulse Rate [ From Monitor] Respiratory 15 15 14 Rate Blood Pressure 160/100 132/90 136/91 O2 Sat by Pulse 97 96 97 Oximetry 04/02/17 04/02/17 04/02/17 04:00 04:15 04:30 Temperature 99.4 F Pulse Rate 79 75 84 Pulse Rate [ From Monitor] Respiratory 14 14 16 Rate Blood Pressure 158/100 151/96 146/93 O2 Sat by Pulse 97 97 94 Oximetry 04/02/17 04/02/17 04/02/17 04:45 05:00 08:00 Temperature Pulse Rate 78 79 Pulse Rate [ 96 H From Monitor] Respiratory 14 15 Rate Blood Pressure 154/98 154/97 O2 Sat by Pulse 93 94 Oximetry 04/02/17 04/02/17 04/02/17 08:14 08:16 08:26 Temperature 98.1 F Pulse Rate 85 100 H Pulse Rate [ From Monitor] Respiratory 17 21 Rate Blood Pressure 158/100 158/100 O2 Sat by Pulse 94 93 Oximetry 04/02/17 04/02/17 04/02/17 08:30 08:46 09:00 Temperature Pulse Rate 96 H 106 H 99 H Pulse Rate [ From Monitor] Respiratory 14 15 16 Rate Blood Pressure 149/90 158/98 163/99 O2 Sat by Pulse 96 93 94 Oximetry 04/02/17 04/02/17 04/02/17 09:15 09:30 09:45 Temperature Pulse Rate 99 H 100 H 95 H Pulse Rate [ From Monitor] Respiratory 17 13 13 Rate Blood Pressure 146/100 146/100 152/93 O2 Sat by Pulse 94 94 97 Oximetry 04/02/17 04/02/17 04/02/17 10:00 10:15 10:30 Temperature Pulse Rate 108 H 101 H 99 H Pulse Rate [ From Monitor] Respiratory 17 21 17 Rate Blood Pressure 137/95 157/108 166/135 O2 Sat by Pulse 95 97 98 Oximetry 04/02/17 04/02/17 04/02/17 10:45 11:00 11:30 Temperature Pulse Rate 104 H 104 H 111 H Pulse Rate [ From Monitor] Respiratory 14 21 Rate Blood Pressure 155/111 149/107 159/102 O2 Sat by Pulse 97 97 Oximetry 04/02/17 04/02/17 04/02/17 11:45 12:00 12:10 Temperature Pulse Rate 113 H 109 H 108 H Pulse Rate [ From Monitor] Respiratory 15 19 Rate Blood Pressure 164/108 158/109 158/109 O2 Sat by Pulse 97 97 Oximetry CBC and BMP: 04/01/17 05:30 04/01/17 05:30 ABG, PT/INR, D-dimer: PT/INR, D-dimer PT 12.6 Sec. (12.2-14.9) 03/31/17 Unknown INR 0.95 (0.87-1.13) 03/31/17 Unknown Abnormal lab findings: Abnormal Labs 03/31/17 03/31/17 04/01/17 Unknown Unknown 05:30 WBC 11.8 H 11.9 H Lymph % (Auto) 9.5 L Lymph # 1.1 L [place] # 0.9 H Seg Neutrophils % 84.5 H 76.5 H Seg Neutrophils # 10.0 H 9.1 H Glucose 147 H 04/01/17 05:30 WBC Lymph % (Auto) Lymph # [place] # Seg Neutrophils % Seg Neutrophils # Glucose 110 H Chest x-ray: image reviewed Allied health notes reviewed: nursing Critical care time in (mins) excluding proc time.: 35 Critical care attestation.: If time is entered above; I have spent that time in minutes in the direct care of this critically ill patient, excluding procedure time.
[2017-04-02] MEDS: XANAX PO SCH ×2 (16:21→22:39)
--- NOTE | 2017-04-02 18:10 | Consultation ---
History of Present Illness Consult date: 04/02/17 Requesting physician: JOSE C HICKS Reason for Consult: stroke s/p tpA Chief complaint: numb L side History of present illness: 56 YO M Hx HTN p/w acute onset slurred speech and L sided numbness on 03/31 @ 10- 11 AM. Sx are constant. There are no clear aggravating, relieving or temporal factors. Severity was enough to cause inability to effectively use the right side. Past History Past Medical History: hypertension, other (Asthma as a child) Past Surgical History: No surgical history Social history: single, Lives alone, alcohol abuse (once in a while), full code. denies: smoking, prescription drug abuse, IV drug use Family history: cancer (Father - prostate CA), hypertension Medications and Allergies Allergies Allergy/AdvReac Type Severity Reaction Status Date / Time No Known Allergies Allergy Unverified 03/31/17 14:32 Home Medications Medication Instructions Recorded Confirmed Last Taken Type No Known Home Medications [No 03/31/17 03/31/17 Unknown History Reported Home Medications] Active Meds: Active Medications Acetaminophen (Tylenol) 650 mg PO Q4H PRN PRN Reason: Pain, Mild (1-3) Last Admin: 04/02/17 01:04 Dose: 650 mg Al Hydrox/Mg Hydrox/Simethicone (Alum-Mag Hydrox-Simeth [id number]/5ml) 30 ml PO Q4H PRN PRN Reason: Indigestion Alprazolam (Xanax) 1 mg PO BID MARY Last Admin: 04/02/17 16:21 Dose: 1 mg Amlodipine Besylate (Norvasc) 5 mg PO QDAY MARY Bisacodyl (Dulcolax) 10 mg NH QDAY PRN PRN Reason: constipation unrelieved by MOM Famotidine (Pepcid) 20 mg IV QDAY MARY Last Admin: 04/02/17 12:11 Dose: 20 mg Nicardipine HCl 50 mg/ Sodium (Chloride) 250 mls @ 25 mls/hr IV TITR MARY; 5 MG/ HR PRN Reason: Protocol Last Admin: 04/02/17 12:12 Dose: 5 mg/hr, 25 mls/hr Magnesium Hydroxide (Milk Of Magnesia) 30 ml PO Q4H PRN PRN Reason: Constipation Metoclopramide HCl (Reglan) 10 mg PO Q6H PRN PRN Reason: Nausea And Vomiting Metoprolol Tartrate (Lopressor) 50 mg PO BID [facility] Last Admin: 04/02/17 12:10 Dose: 50 mg Ondansetron HCl (Zofran) 4 mg IV Q8H PRN PRN Reason: N/V unrelieved by Reglan Last Admin: 04/01/17 01:54 Dose: 4 mg Promethazine HCl (Phenergan) 25 mg NH Q6H PRN PRN Reason: Nausea And Vomiting Simvastatin (Zocor) 20 mg PO QHS [facility] Last Admin: 04/02/17 00:50 Dose: 20 mg Sodium Chloride (Sodium Chloride Flush Syringe 10 Ml) 10 ml IV PRN PRN PRN Reason: LINE FLUSH Review of Systems All systems: negative Neurological: weakness, numbness, lack of coordination, change in speech, gait dysfunction, motor disturbance, sensory deficit, no tingling, no double vision Physical Examination - Vital Signs Vital Signs: Vital Signs Pulse Resp 103 H 15 03/31/17 14:17 03/31/17 14:17 - Constitutional General appearance: comfortable - EENT EENT: Present: ATNC, PERRL, mucous membranes moist, hearing intact, vision intact - Respiratory Respiratory: Present: normal breath sounds, no respiratory distress - Cardiovascular Cardiovascular: Present: regular rate Extremities: Present: no peripheral edema bilatateraly, no clubbing, cyanosis, no inflammation, no ischemia or petechiae - Gastrointestinal Gastrointestinal: Present: normoactive bowel sounds, soft, non-distended - Integumentary Integumentary: Present: normal - Neurologic Cranial nerve examination: PERRL, EOMI, ptosis (slight on L), V1/V2/V3 grossly intact, tongue midline, intact, intact shoulder shrug, Intact Vestibulo-ocular r , intact corneal reflex, facial droop (mild on L), normal palatal elevation Speech examination: other (mild slurred) Sensorimotor examination: pronator drift (on R), hemiparesis (faint fine motor on R) Motor examination - right side: 55: biceps, triceps, wrist flexion, wrist extension, cigar bander, hip flexors, knee extensors, dorsiflexion, toe extension (EHL) , plantarflexion Motor examination - left side: 55: biceps, triceps, wrist flexion, wrist extension, cigar bander, hip flexors, knee extensors, dorsiflexion, toe extension (EHL) , plantarflexion Detailed sensory examination: light touch, temperature (diminished on L) Reflex and gait examination: Babinski's sign (on R) Reflexes: 1+: ankle (on R), bicep, knee, tricep Cerebellar examination: ataxia (RUE > LE) - Musculoskeletal Musculoskeletal: Present: no fluid collection, no pain, normal range of motion - Psychiatric Psychiatric: Present: mood/affect appropriate, cooperative Results - Laboratory Findings CBC and BMP: 04/01/17 05:30 04/01/17 05:30 Abnormal Lab Findings: Abnormal Labs 03/31/17 03/31/17 04/01/17 Unknown Unknown 05:30 WBC 11.8 H 11.9 H Lymph % (Auto) 9.5 L Lymph # 1.1 L [place] # 0.9 H Seg Neutrophils % 84.5 H 76.5 H Seg Neutrophils # 10.0 H 9.1 H Glucose 147 H POC Glucose 04/01/17 04/02/17 05:30 12:40 WBC Lymph % (Auto) Lymph # [place] # Seg Neutrophils % Seg Neutrophils # Glucose 110 H POC Glucose 108 H Assessment and Plan 56 YO M Hx HTN not on AP therapy p/w slurred speech and L sided numbness and R sided weakness that I suspect d/t ischemic stroke s/p tPA in ED w/ initial NIHSS 9 for reportedly suspected L MCA syndrome. CTH & CTA H/N nonacute. TTE neg. LDL 96. Plan and Recommendation: 1. Current NIHSS 3. 2. Telemetry bed w/ Q4 hour neuro checks 3. Brain imaging: MRI Brain w/o Dipesh Stroke Protocol 4. Can lower MAPs by 10-15% daily to reach goal SBP 120-160 as permissive HTN period complete. 5. Secondary stroke prevention: ASA 325mg Daily x 1 then 81mg QDay if MRI Brain neg for acute ICH & upgrade to full dose statin therapy (Crestor 20mg or 40mg OR Lipitor 40mg or 80mg Daily OR Zocor 40mg QDay) for goal LDL < 70. 6. F/E/N: isotonic IVF prn, prn replete, bedside speech/swallow eval prior to PO intake. 7. DVT Prophylaxis 8. Stroke education, PT/OT/Speech Therapy consults, CM evaluation 9. For any changes in neurologic status, pls obtain STAT CTH w/o contrast and call neurology
--- NOTE | 2017-04-02 20:44 | Progress Note ---
Assessment and Plan Assessment and plan: A 56-year-old male presents to the ER via EMS from home with right-sided numbness and weakness. Patient reported this morning after he reached home from work, he developed right-sided numbness, facial droop, slurred speech, and weakness in his right arm and leg. Patient also reported early during the week he had one episode where he felt his right leg was weak and described it as fell asleep not for a long time. It is very difficult to obtain a history from the patient because he is a poor historian and is exhibiting dysarthria and has what appears to be expressive aphasia. Patient denies headache, chest pain, fever, chills, nausea, vomiting, shortness of breath, abdominal pain. EMS reported patient had elevated systolic pressure of SBP > 240. Patient's Medical history hypertension and has not been on meds time one year, asthma as a child. Patient denies smoking or EtOH use. -Acute ischemic stroke with infarct- Concerning for L MCA stroke, status post TPA CT brain and neck are unremarkable. Awaiting MRI. Unable to obtain yet, patient still on Nifedipene drip Continue ICU care. PT OT speech consult pending. MRI/MRA, echo, lipid panel, UA, speech and swallow, she was still with dysarthria. Neurology input noted.start on Statin and ASA on Post TPA protocol. -Hypertension emergency- wean cardene drip, -Acute dysarthria/dysphagia-speech and swallow evaluation ordered -DM 2-A1c ordered, monitor Accu-Checks, insulin sliding scale ordered -DVT/GI prophylaxis -Plan discussed with patient and family History Interval history: Patient seen and examined, remains with mild slurred speech, right arm weakness but improved, sitting up in chair, family at bedside. no other adverse event reported to me Hospitalist Physical - Physical exam Narrative exam: VITAL SIGNS: Reviewed. GENERAL: The patient appeared well nourished and normally developed. Vital signs as documented. HEAD: No signs of head trauma. EYES: Pupils are equal. Extraocular motions intact. EARS: Hearing grossly intact. MOUTH: Oropharynx is normal. NECK: No adenopathy, no JVD. CHEST: Chest with clear breath sounds bilaterally. No wheezes, rales, or rhonchi. CARDIAC: Regular rate and rhythm. S1 and S2, without murmurs, gallops, or rubs. VASCULAR: No Edema. Peripheral pulses normal and equal in all extremities. ABDOMEN: Soft, without detectable tenderness. No sign of distention. No rebound or guarding, and no masses palpated. Bowel Sounds normal. MUSCULOSKELETAL: Good range of motion of all major joints. Extremities without clubbing, cyanosis or edema. NEUROLOGIC EXAM: Alert and oriented x 3. The strengths on the right upper extremity is 3 over 5 and 5/5 from the lower extremity bilaterally. Speech is slurred. left facial droop Follows commands. PSYCHIATRIC: Mood normal. SKIN: No rash or lesions. - Constitutional Vitals: Temp Pulse Resp BP Pulse Ox 99.2 F 69 16 132/81 97 04/02/17 20:00 04/02/17 20:00 04/02/17 20:00 04/02/17 20:00 04/02/17 20:00 General appearance: Present: mild distress Results - Labs CBC & Chem 7: 04/01/17 05:30 04/01/17 05:30 Labs: Laboratory Last Values WBC 11.9 K/mm3 (4.5-11.0) H 04/01/17 05:30 RBC 4.61 M/mm3 (3.65-5.03) 04/01/17 05:30 Hgb 14.4 gm/dl (11.8-15.2) 04/01/17 05:30 Hct 42.7 % (35.5-45.6) 04/01/17 05:30 MCV 93 fl (84-94) 04/01/17 05:30 MCH 31 pg (28-32) 04/01/17 05:30 MCHC 34 % (32-34) 04/01/17 05:30 RDW 13.9 % (13.2-15.2) 04/01/17 05:30 Plt Count 251 K/mm3 (140-440) 04/01/17 05:30 Lymph % (Auto) 15.0 % (13.4-35.0) 04/01/17 05:30 [place] % (Auto) 7.3 % (0.0-7.3) 04/01/17 05:30 Eos % (Auto) 0.7 % (0.0-4.3) 04/01/17 05:30 Baso % (Auto) 0.5 % (0.0-1.8) 04/01/17 05:30 Lymph # 1.8 K/mm3 (1.2-5.4) 04/01/17 05:30 [place] # 0.9 K/mm3 (0.0-0.8) H 04/01/17 05:30 Eos # 0.1 K/mm3 (0.0-0.4) 04/01/17 05:30 Baso # 0.1 K/mm3 (0.0-0.1) 04/01/17 05:30 Seg Neutrophils % 76.5 % (40.0-70.0) H 04/01/17 05:30 Seg Neutrophils # 9.1 K/mm3 (1.8-7.7) H 04/01/17 05:30 PT 12.6 Sec. (12.2-14.9) 03/31/17 Unknown INR 0.95 (0.87-1.13) 03/31/17 Unknown APTT 26.6 Sec. (24.2-36.6) 03/31/17 Unknown Thrombin Time 16.6 Sec. (15.1-19.6) 03/31/17 Unknown Sodium 139 mmol/L (137-145) 04/01/17 05:30 Potassium 3.7 mmol/L (3.6-5.0) 04/01/17 05:30 Chloride 99.8 mmol/L (98-107) 04/01/17 05:30 Carbon Dioxide 24 mmol/L (22-30) 04/01/17 05:30 Anion Gap 19 mmol/L 04/01/17 05:30 BUN 15 mg/dL (9-20) 04/01/17 05:30 Creatinine 1.2 mg/dL (0.8-1.5) 04/01/17 05:30 Estimated GFR > 60 ml/min 04/01/17 05:30 BUN/Creatinine Ratio 12.50 % 04/01/17 05:30 Glucose 110 mg/dL (75-100) H 04/01/17 05:30 POC Glucose 97 (70-105) 04/02/17 17:09 Calcium 8.5 mg/dL (8.4-10.2) 04/01/17 05:30 Troponin T < 0.010 ng/mL (0.00-0.029) 03/31/17 Unknown Triglycerides 81 mg/dL (2-149) 04/01/17 05:30 Cholesterol 159 mg/dL (50-199) 04/01/17 05:30 LDL Cholesterol Direct 96 mg/dL (50-130) 04/01/17 05:30 HDL Cholesterol 47 mg/dL (40-59) 04/01/17 05:30 Cholesterol/HDL Ratio 3.38 % 04/01/17 05:30 - Imaging and Cardiology MRI - head: pending
[2017-04-02] MEDS: BABY ASPIRIN PO SCH (22:40)
--- NOTE | 2017-04-03 03:46 | Cat Scan Report ---
FINAL REPORT PROCEDURE: CT HEAD/BRAIN WO CON TECHNIQUE: Computerized tomography of the head was performed without contrast material. HISTORY: Increased Rt sided weakness COMPARISON: 03/31/2017 FINDINGS: Skull and scalp: Normal. Paranasal sinuses: Normal. Ventricles and subarachnoid spaces: There is moderate central and cortical atrophy. There is no hydrocephalus.. Cerebrum: There is bilateral periventricular low density suggesting chronic ischemic gliosis. There is an old lacunar infarct defect in the right caudate nucleus. There is a vague area of low density in the left external capsule and finley radiata which is slightly more prominent on the prior study and could be evidence of evolving ischemic injury. There is no hemorrhagic transformation. There is no mass effect or midline shift.. Cerebellum and brainstem: No evidence of hemorrhage, acute infarction or mass. Vasculature: Normal. Comments: None. IMPRESSION: There is moderate central and cortical atrophy. There is no hydrocephalus.. There is bilateral periventricular low density suggesting chronic ischemic gliosis. There is an old lacunar infarct defect in the right caudate nucleus. There is a vague area of low density in the left external capsule and finley radiata which is slightly more prominent on the prior study and could be evidence of evolving ischemic injury. There is no hemorrhagic transformation. There is no mass effect or midline shift..
[2017-04-03] MEDS: BABY ASPIRIN PO SCH (09:20)
[2017-04-03] MEDS: PEPCID IV SCH ×2 (09:20→23:02)
[2017-04-03] MEDS: NORVASC PO SCH (09:20)
[2017-04-03] MEDS: XANAX PO SCH ×2 (09:20→23:02)
[2017-04-03] MEDS: LOPRESSOR PO SCH ×2 (09:20→23:02)
--- NOTE | 2017-04-03 09:32 | Progress Note ---
Assessment and Plan - Patient Problems (1) Acute ischemic stroke Current Visit: Yes Status: Acute Plan to address problem: s/p TPA Follow up MRI/MRA SCDs for VTE prophylaxis Secondary stroke prophylaxis PT/OT to evaluate and treat Speech language pathologist to evaluate swallow and speech function Continue to monitor in the ICU today. Get MRI/MRA Once patient is off nicardipine infusion with adequate BP control, plan to transfer telemetry (2) Malignant hypertension Current Visit: Yes Status: Acute Plan to address problem: Added oral antihypertensives therapy for better blood pressure control and to wean off cardene infusion Subjective Date of service: 04/03/17 Principal diagnosis: CVA s/p TPA, Malignant HTN Interval history: Seen and examined. Vitals, labs, medications, chart, reviewed. Overnight events notes- worsening right upper extremity weakness and slurring of speech. Stat CT head did not show any infarct or hemorrhage. Still on cardene infusion, MRI pending Discussed in interdisciplinary ICU rounds. Patient denies any chest pain, no headaches, no shortness of breath, no bleeding. Objective - Exam Narrative Exam: GENERAL: The patient appeared well nourished and normally developed. Sitting up in a chair HEAD: No signs of head trauma, atraumatic, normocephalic. EYES: Pupils are equal. Extraocular motions intact. EARS: Hearing grossly intact. MOUTH: Oropharynx is normal. NECK: No adenopathy, no JVD. CHEST: Chest with clear breath sounds bilaterally. No wheezes, rales, or rhonchi. CARDIAC: Regular rate and rhythm. S1 and S2, without murmurs, gallops, or rubs. VASCULAR: No Edema. Peripheral pulses normal and equal in all extremities. ABDOMEN: Soft, without detectable tenderness. No sign of distention. No rebound or guarding, and no masses palpated. Bowel Sounds normal. MUSCULOSKELETAL: Good range of motion of all major joints. Extremities without clubbing, cyanosis or edema. NEUROLOGIC EXAM: Alert and oriented x 3. The strengths on the right upper extremity is 1 over 5 and 5/5 from the lower extremity bilaterally. Speech is slurred. left facial droop Follows commands. PSYCHIATRIC: Normal affect SKIN: No rash or lesions. Vital Signs - 12hr 04/02/17 04/02/17 04/02/17 21:45 22:00 22:15 Temperature Pulse Rate 73 73 78 Pulse Rate [ From Monitor] Respiratory 16 19 15 Rate Blood Pressure 145/91 125/85 123/90 O2 Sat by Pulse 97 97 97 Oximetry 04/02/17 04/02/17 04/02/17 22:31 22:40 22:45 Temperature Pulse Rate 82 73 70 Pulse Rate [ From Monitor] Respiratory 15 18 Rate Blood Pressure 161/113 161/113 149/96 O2 Sat by Pulse 99 98 Oximetry 04/02/17 04/02/17 04/02/17 23:01 23:05 23:15 Temperature Pulse Rate 65 61 68 Pulse Rate [ From Monitor] Respiratory 18 18 14 Rate Blood Pressure 161/86 161/86 152/84 O2 Sat by Pulse 98 96 97 Oximetry 04/02/17 04/02/17 04/02/17 23:30 23:45 23:50 Temperature 98.9 F Pulse Rate 66 57 L Pulse Rate [ From Monitor] Respiratory 19 16 Rate Blood Pressure 146/87 126/75 O2 Sat by Pulse 98 95 Oximetry 04/03/17 04/03/17 04/03/17 00:00 00:01 00:15 Temperature Pulse Rate 57 L 54 L Pulse Rate [ 78 From Monitor] Respiratory 15 17 Rate Blood Pressure 135/79 134/80 O2 Sat by Pulse 93 97 Oximetry 04/03/17 04/03/17 04/03/17 00:31 00:45 01:00 Temperature Pulse Rate 56 L 57 L 55 L Pulse Rate [ From Monitor] Respiratory 17 19 17 Rate Blood Pressure 130/88 129/76 127/76 O2 Sat by Pulse 97 93 95 Oximetry 04/03/17 04/03/17 04/03/17 01:15 01:31 01:45 Temperature Pulse Rate 55 L 53 L 69 Pulse Rate [ From Monitor] Respiratory 17 15 14 Rate Blood Pressure 122/73 122/74 122/74 O2 Sat by Pulse 96 97 97 Oximetry 04/03/17 04/03/17 04/03/17 02:00 02:15 02:30 Temperature Pulse Rate 76 70 74 Pulse Rate [ From Monitor] Respiratory 13 18 19 Rate Blood Pressure 168/147 150/91 128/80 O2 Sat by Pulse 97 97 95 Oximetry 04/03/17 04/03/17 04/03/17 02:45 03:24 03:30 Temperature Pulse Rate 74 72 71 Pulse Rate [ From Monitor] Respiratory 16 18 18 Rate Blood Pressure 128/75 128/80 140/83 O2 Sat by Pulse 94 98 94 Oximetry 04/03/17 04/03/17 04/03/17 03:45 04:00 04:05 Temperature 98.7 F Pulse Rate 73 70 Pulse Rate [ 69 From Monitor] Respiratory 18 16 Rate Blood Pressure 143/89 128/75 O2 Sat by Pulse 95 95 Oximetry 04/03/17 04/03/17 04/03/17 04:15 04:30 04:45 Temperature Pulse Rate 67 72 62 Pulse Rate [ From Monitor] Respiratory 17 17 17 Rate Blood Pressure 133/82 128/86 121/78 O2 Sat by Pulse 98 95 97 Oximetry 04/03/17 04/03/17 04/03/17 05:00 05:15 05:30 Temperature Pulse Rate 71 51 L 58 L Pulse Rate [ From Monitor] Respiratory 18 17 15 Rate Blood Pressure 120/85 119/82 123/77 O2 Sat by Pulse 94 94 99 Oximetry 04/03/17 04/03/17 04/03/17 05:45 06:00 06:15 Temperature Pulse Rate 74 72 65 Pulse Rate [ From Monitor] Respiratory 16 17 16 Rate Blood Pressure 139/86 133/88 138/83 O2 Sat by Pulse 95 95 95 Oximetry 04/03/17 04/03/17 04/03/17 06:30 06:45 07:01 Temperature Pulse Rate 70 58 L 60 Pulse Rate [ From Monitor] Respiratory 16 17 16 Rate Blood Pressure 128/83 115/74 126/75 O2 Sat by Pulse 96 98 98 Oximetry 04/03/17 04/03/17 04/03/17 07:15 07:30 07:45 Temperature Pulse Rate 56 L 63 72 Pulse Rate [ From Monitor] Respiratory 14 16 15 Rate Blood Pressure 129/76 112/77 138/87 O2 Sat by Pulse 97 96 97 Oximetry 04/03/17 04/03/17 04/03/17 08:00 08:15 08:30 Temperature 98.9 F Pulse Rate 73 78 82 Pulse Rate [ From Monitor] Respiratory 17 10 L 21 Rate Blood Pressure 131/83 136/92 133/94 O2 Sat by Pulse 97 94 97 Oximetry 04/03/17 09:20 Temperature Pulse Rate 72 Pulse Rate [ From Monitor] Respiratory Rate Blood Pressure 122/76 O2 Sat by Pulse Oximetry Gastrointestinal: normoactive bowel sounds, soft, non-distended Integumentary: normal CBC and BMP: 04/01/17 05:30 04/01/17 05:30 ABG, PT/INR, D-dimer: PT/INR, D-dimer PT 12.6 Sec. (12.2-14.9) 03/31/17 Unknown INR 0.95 (0.87-1.13) 03/31/17 Unknown Abnormal lab findings: Abnormal Labs 03/31/17 03/31/17 04/01/17 Unknown Unknown 05:30 WBC 11.8 H 11.9 H Lymph % (Auto) 9.5 L Lymph # 1.1 L [place] # 0.9 H Seg Neutrophils % 84.5 H 76.5 H Seg Neutrophils # 10.0 H 9.1 H Glucose 147 H POC Glucose 04/01/17 04/02/17 04/02/17 05:30 12:40 21:40 WBC Lymph % (Auto) Lymph # [place] # Seg Neutrophils % Seg Neutrophils # Glucose 110 H POC Glucose 108 H 136 H Allied health notes reviewed: nursing
--- NOTE | 2017-04-03 11:21 | Progress Note ---
Assessment and Plan 56 YO M Hx HTN not on AP therapy p/w slurred speech and L sided numbness and R sided weakness that I suspect d/t ischemic stroke s/p tPA in ED w/ initial NIHSS 9 for reportedly suspected L MCA syndrome. CTH & CTA H/N nonacute. TTE neg. LDL 96. NIHSS 3 on my initial eval 04/02 but overnight pt worsened back to presentation NIHSS 9 in setting of hypotension. f/u CTH nonacute w/o ICH. Plan and Recommendation: 1. Telemetry bed w/ Q4 hour neuro checks 2. Brain imaging: MRI Brain w/o Dipesh Stroke Protocol 3. Goal SBP 140-180 . 4. Secondary stroke prevention: ASA 325mg Daily x 1 then 81mg QDay & upgrade to full dose statin therapy (Crestor 20mg or 40mg OR Lipitor 40mg or 80mg Daily OR Zocor 40mg QDay) for goal LDL < 70. 5. F/E/N: isotonic IVF prn, prn replete, bedside speech/swallow eval prior to PO intake. 6. DVT Prophylaxis 7. Stroke education, PT/OT/Speech Therapy consults, CM evaluation 8. For any changes in neurologic status, pls obtain STAT CTH w/o contrast and call neurology Subjective Date of service: 04/03/17 Principal diagnosis: CVA s/p TPA, Malignant HTN Interval history: worsened R sided weakness overnight in setting of decr BP Objective - Vital Sign Vital Signs - 12hr 04/02/17 04/02/17 04/02/17 23:30 23:45 23:50 Temperature 98.9 F Pulse Rate 66 57 L Pulse Rate [ From Monitor] Respiratory 19 16 Rate Blood Pressure 146/87 126/75 O2 Sat by Pulse 98 95 Oximetry 04/03/17 04/03/17 04/03/17 00:00 00:01 00:15 Temperature Pulse Rate 57 L 54 L Pulse Rate [ 78 From Monitor] Respiratory 15 17 Rate Blood Pressure 135/79 134/80 O2 Sat by Pulse 93 97 Oximetry 04/03/17 04/03/17 04/03/17 00:31 00:45 01:00 Temperature Pulse Rate 56 L 57 L 55 L Pulse Rate [ From Monitor] Respiratory 17 19 17 Rate Blood Pressure 130/88 129/76 127/76 O2 Sat by Pulse 97 93 95 Oximetry 04/03/17 04/03/17 04/03/17 01:15 01:31 01:45 Temperature Pulse Rate 55 L 53 L 69 Pulse Rate [ From Monitor] Respiratory 17 15 14 Rate Blood Pressure 122/73 122/74 122/74 O2 Sat by Pulse 96 97 97 Oximetry 04/03/17 04/03/17 04/03/17 02:00 02:15 02:30 Temperature Pulse Rate 76 70 74 Pulse Rate [ From Monitor] Respiratory 13 18 19 Rate Blood Pressure 168/147 150/91 128/80 O2 Sat by Pulse 97 97 95 Oximetry 04/03/17 04/03/17 04/03/17 02:45 03:24 03:30 Temperature Pulse Rate 74 72 71 Pulse Rate [ From Monitor] Respiratory 16 18 18 Rate Blood Pressure 128/75 128/80 140/83 O2 Sat by Pulse 94 98 94 Oximetry 04/03/17 04/03/17 04/03/17 03:45 04:00 04:05 Temperature 98.7 F Pulse Rate 73 70 Pulse Rate [ 69 From Monitor] Respiratory 18 16 Rate Blood Pressure 143/89 128/75 O2 Sat by Pulse 95 95 Oximetry 04/03/17 04/03/17 04/03/17 04:15 04:30 04:45 Temperature Pulse Rate 67 72 62 Pulse Rate [ From Monitor] Respiratory 17 17 17 Rate Blood Pressure 133/82 128/86 121/78 O2 Sat by Pulse 98 95 97 Oximetry 04/03/17 04/03/17 04/03/17 05:00 05:15 05:30 Temperature Pulse Rate 71 51 L 58 L Pulse Rate [ From Monitor] Respiratory 18 17 15 Rate Blood Pressure 120/85 119/82 123/77 O2 Sat by Pulse 94 94 99 Oximetry 04/03/17 04/03/17 04/03/17 05:45 06:00 06:15 Temperature Pulse Rate 74 72 65 Pulse Rate [ From Monitor] Respiratory 16 17 16 Rate Blood Pressure 139/86 133/88 138/83 O2 Sat by Pulse 95 95 95 Oximetry 04/03/17 04/03/17 04/03/17 06:30 06:45 07:01 Temperature Pulse Rate 70 58 L 60 Pulse Rate [ From Monitor] Respiratory 16 17 16 Rate Blood Pressure 128/83 115/74 126/75 O2 Sat by Pulse 96 98 98 Oximetry 04/03/17 04/03/17 04/03/17 07:15 07:30 07:45 Temperature Pulse Rate 56 L 63 72 Pulse Rate [ From Monitor] Respiratory 14 16 15 Rate Blood Pressure 129/76 112/77 138/87 O2 Sat by Pulse 97 96 97 Oximetry 04/03/17 04/03/17 04/03/17 08:00 08:15 08:30 Temperature 98.9 F Pulse Rate 73 78 82 Pulse Rate [ 72 From Monitor] Respiratory 17 10 L 21 Rate Blood Pressure 131/83 136/92 133/94 O2 Sat by Pulse 97 94 97 Oximetry 04/03/17 04/03/17 04/03/17 08:45 09:00 09:15 Temperature Pulse Rate 73 65 77 Pulse Rate [ From Monitor] Respiratory 16 16 14 Rate Blood Pressure 134/83 122/76 127/85 O2 Sat by Pulse 96 96 94 Oximetry 04/03/17 04/03/17 04/03/17 09:20 09:30 09:45 Temperature Pulse Rate 72 65 68 Pulse Rate [ From Monitor] Respiratory 16 17 Rate Blood Pressure 122/76 121/73 112/75 O2 Sat by Pulse 96 94 Oximetry 04/03/17 10:00 Temperature Pulse Rate 66 Pulse Rate [ From Monitor] Respiratory 16 Rate Blood Pressure 110/70 O2 Sat by Pulse 95 Oximetry - General Apperance Constitutional: comfortable, acutely ill - EENT EENT: ATNC, PERRL, mucous membranes moist, hearing intact, vision intact - Respiratory Respiratory: chest non-tender, normal breath sounds, no respiratory distress - Cardiovascular Cardiovascular: regular rate Extremities: no peripheral edema bilat, no clubbing, cyanosis, no inflammation, no ischemia or petechiae - Gastrointestinal Gastrointestinal: normoactive bowel sounds, soft, non-distended - Integumentary Integumentary: normal - Neurologic Cranial nerve examination: PERRL, EOMI, VFF, V1/V2/V3 grossly intact, tongue midline, intact, Intact Vestibulo-ocular r, intact corneal reflex, facial droop (mod on R) Speech examination: intact, other (dysarthria) Motor examination - right side: 10/19: biceps, triceps, wrist flexion, wrist extension, clinical laboratory assistant, 3/5: hip flexors, knee extensors, dorsiflexion, toe extension ( EHL), plantarflexion Motor examination - left side: 5/5: biceps, triceps, wrist flexion, wrist extension, clinical laboratory assistant, hip flexors, knee extensors, dorsiflexion, toe extension (EHL) , plantarflexion Detailed sensory examination: intact, light touch Reflex and gait examination: Babinski's sign (on R) Reflexes: 1+: ankle, bicep, knee, tricep - Musculoskeletal Musculoskeletal: no fluid collection, no pain, normal range of motion - Psychiatric Psychiatric: mood/affect appropriate, cooperative - Laboratory Findings CBC and BMP: 04/01/17 05:30 04/01/17 05:30 Abnormal Lab Findings: Abnormal Labs 03/31/17 03/31/17 04/01/17 Unknown Unknown 05:30 WBC 11.8 H 11.9 H Lymph % (Auto) 9.5 L Lymph # 1.1 L [place] # 0.9 H Seg Neutrophils % 84.5 H 76.5 H Seg Neutrophils # 10.0 H 9.1 H Glucose 147 H POC Glucose 04/01/17 04/02/17 04/02/17 05:30 12:40 21:40 WBC Lymph % (Auto) Lymph # [place] # Seg Neutrophils % Seg Neutrophils # Glucose 110 H POC Glucose 108 H 136 H
--- NOTE | 2017-04-03 14:33 | Progress Note ---
Assessment and Plan Assessment and plan: A 56-year-old male presents to the ER via EMS from home with right-sided numbness and weakness. Patient reported this morning after he reached home from work, he developed right-sided numbness, facial droop, slurred speech, and weakness in his right arm and leg. Patient also reported early during the week he had one episode where he felt his right leg was weak and described it as fell asleep not for a long time. It is very difficult to obtain a history from the patient because he is a poor historian and is exhibiting dysarthria and has what appears to be expressive aphasia. Patient denies headache, chest pain, fever, chills, nausea, vomiting, shortness of breath, abdominal pain. EMS reported patient had elevated systolic pressure of SBP > 240. Patient's Medical history hypertension and has not been on meds time one year, asthma as a child. Patient denies smoking or EtOH use. -Acute ischemic stroke with infarct- EKG and chest x-ray Came in the ER, head CT , TPA administered in the ER, neck CTA, head CTA, carotid Doppler studies, consulted neurology, admitted to ICU, MRI/MRA, echo, lipid panel, UA, speech and swallow, consulted PT/OT, continue aspirin, statin, Neurology input appreciated -Accelerated Hypertension-permissive hypertension per stroke protocol, anti- hypertensive ordered when necessary with parameters -Acute dysarthria/dysphagia-speech and swallow evaluation, continue to speech therapy -DM 2-A1c ordered, monitor Accu-Checks, insulin sliding scale ordered HLD -continue statin -DVT prophylaxis- SCDs ordered Advance Directives: No (Full Code) VTE prophylaxis?: Chemical Plan of care discussed with patient/family: Yes The high probability of a clinically significant, sudden or life threatening deterioration of the [cardiovascular and neurological] system(s) required my full and direct attention, intervention and personal management. The aggregate critical care time was 32 minutes. This time is in addition to time spent performing reported procedures but includes the following: [] Data Review and interpretation [] Patient assessment and monitoring of vital signs [] Documentation [] Medication orders and management History Interval history: he continues to have R sided weakness, dysphagia, and slurred speech, expressive aphasia Hospitalist Physical - Physical exam Narrative exam: General: Patient appears well in no distress HEENT: MMM, EOMI cardiac: S1-S2 heard lungs: clear to auscultation, abdomen: soft, nontender, nondistended bowel sounds positive extremities: no edema clubbing or cyanosis Skin: no rash or lesion Neuro: Right hemiplegia, slurred speech, expressive aphasia- slow responses Psych: appropriate behavior and mood, cognition intact - Constitutional Vitals: Temp Pulse Resp BP Pulse Ox 98.7 F 69 21 139/93 97 04/03/17 12:00 04/03/17 14:15 04/03/17 14:15 04/03/17 14:15 04/03/17 14:15 General appearance: Present: mild distress Results - Labs CBC & Chem 7: 04/01/17 05:30 04/01/17 05:30 Labs: Laboratory Last Values WBC 11.9 K/mm3 (4.5-11.0) H 04/01/17 05:30 RBC 4.61 M/mm3 (3.65-5.03) 04/01/17 05:30 Hgb 14.4 gm/dl (11.8-15.2) 04/01/17 05:30 Hct 42.7 % (35.5-45.6) 04/01/17 05:30 MCV 93 fl (84-94) 04/01/17 05:30 MCH 31 pg (28-32) 04/01/17 05:30 MCHC 34 % (32-34) 04/01/17 05:30 RDW 13.9 % (13.2-15.2) 04/01/17 05:30 Plt Count 251 K/mm3 (140-440) 04/01/17 05:30 Lymph % (Auto) 15.0 % (13.4-35.0) 04/01/17 05:30 [place] % (Auto) 7.3 % (0.0-7.3) 04/01/17 05:30 Eos % (Auto) 0.7 % (0.0-4.3) 04/01/17 05:30 Baso % (Auto) 0.5 % (0.0-1.8) 04/01/17 05:30 Lymph # 1.8 K/mm3 (1.2-5.4) 04/01/17 05:30 [place] # 0.9 K/mm3 (0.0-0.8) H 04/01/17 05:30 Eos # 0.1 K/mm3 (0.0-0.4) 04/01/17 05:30 Baso # 0.1 K/mm3 (0.0-0.1) 04/01/17 05:30 Seg Neutrophils % 76.5 % (40.0-70.0) H 04/01/17 05:30 Seg Neutrophils # 9.1 K/mm3 (1.8-7.7) H 04/01/17 05:30 PT 12.6 Sec. (12.2-14.9) 03/31/17 Unknown INR 0.95 (0.87-1.13) 03/31/17 Unknown APTT 26.6 Sec. (24.2-36.6) 03/31/17 Unknown Thrombin Time 16.6 Sec. (15.1-19.6) 03/31/17 Unknown Sodium 139 mmol/L (137-145) 04/01/17 05:30 Potassium 3.7 mmol/L (3.6-5.0) 04/01/17 05:30 Chloride 99.8 mmol/L (98-107) 04/01/17 05:30 Carbon Dioxide 24 mmol/L (22-30) 04/01/17 05:30 Anion Gap 19 mmol/L 04/01/17 05:30 BUN 15 mg/dL (9-20) 04/01/17 05:30 Creatinine 1.2 mg/dL (0.8-1.5) 04/01/17 05:30 Estimated GFR > 60 ml/min 04/01/17 05:30 BUN/Creatinine Ratio 12.50 % 04/01/17 05:30 Glucose 110 mg/dL (75-100) H 04/01/17 05:30 POC Glucose 139 (70-105) H 04/03/17 11:05 Calcium 8.5 mg/dL (8.4-10.2) 04/01/17 05:30 Troponin T < 0.010 ng/mL (0.00-0.029) 03/31/17 Unknown Triglycerides 81 mg/dL (2-149) 04/01/17 05:30 Cholesterol 159 mg/dL (50-199) 04/01/17 05:30 LDL Cholesterol Direct 96 mg/dL (50-130) 04/01/17 05:30 HDL Cholesterol 47 mg/dL (40-59) 04/01/17 05:30 Cholesterol/HDL Ratio 3.38 % 04/01/17 05:30
--- NOTE | 2017-04-04 08:36 | Progress Note ---
Assessment and Plan - Patient Problems (1) Acute ischemic stroke Current Visit: Yes Status: Acute Plan to address problem: s/p TPA SCDs for VTE prophylaxis Secondary stroke prophylaxis PT/OT to evaluate and treat Speech language pathologist to re-evaluate swallow and speech function Get MRI/MRA Patient is off nicardipine infusion with adequate BP control, plan to transfer telemetry Secondary stroke prophylaxis (2) Malignant hypertension Current Visit: Yes Status: Acute Plan to address problem: Added oral antihypertensives therapy for better blood pressure control Subjective Date of service: 04/04/17 Principal diagnosis: CVA s/p TPA, Malignant HTN Interval history: Seen and examined. Vitals, labs, medications, chart, reviewed. Overnight events notes- worsening right upper extremity weakness and slurring of speech. Off cardene infusion, MRI pending Discussed in interdisciplinary ICU rounds. Patient denies any chest pain, no headaches, no shortness of breath, no bleeding. Objective - Exam Narrative Exam: GENERAL: The patient appeared well nourished and normally developed. Sitting up in a chair HEAD: No signs of head trauma, atraumatic, normocephalic. EYES: Pupils are equal. Extraocular motions intact. EARS: Hearing grossly intact. MOUTH: Oropharynx is normal. NECK: No adenopathy, no JVD. CHEST: Chest with clear breath sounds bilaterally. No wheezes, rales, or rhonchi. CARDIAC: Regular rate and rhythm. S1 and S2, without murmurs, gallops, or rubs. VASCULAR: No Edema. Peripheral pulses normal and equal in all extremities. ABDOMEN: Soft, without detectable tenderness. No sign of distention. No rebound or guarding, and no masses palpated. Bowel Sounds normal. MUSCULOSKELETAL: Good range of motion of all major joints. Extremities without clubbing, cyanosis or edema. NEUROLOGIC EXAM: Alert and oriented x 3. The strengths on the right upper extremity is 1 over 5 and 5/5 from the lower extremity bilaterally. Speech is slurred. left facial droop Follows commands. PSYCHIATRIC: Normal affect SKIN: No rash or lesions. Vital Signs - 12hr 04/03/17 04/03/17 04/03/17 20:45 21:00 21:15 Temperature Pulse Rate 67 66 73 Pulse Rate [ From Monitor] Respiratory 19 17 16 Rate Blood Pressure 125/84 143/86 147/93 O2 Sat by Pulse 95 98 98 Oximetry 0604/03/17 04/03/17 21:25 21:31 21:45 Temperature Pulse Rate 76 73 Pulse Rate [ From Monitor] Respiratory 18 17 Rate Blood Pressure 136/97 136/97 O2 Sat by Pulse 96 98 94 Oximetry 04/03/17 04/03/17 04/03/17 22:00 22:15 22:30 Temperature Pulse Rate 64 70 59 L Pulse Rate [ From Monitor] Respiratory 16 19 16 Rate Blood Pressure 135/81 153/94 138/82 O2 Sat by Pulse 98 99 97 Oximetry 04/03/17 04/03/17 04/03/17 22:45 23:01 23:02 Temperature Pulse Rate 73 78 72 Pulse Rate [ From Monitor] Respiratory 16 18 Rate Blood Pressure 145/92 137/98 145/92 O2 Sat by Pulse 98 97 Oximetry 04/03/17 04/03/17 04/03/17 23:15 23:31 23:45 Temperature Pulse Rate 63 61 Pulse Rate [ From Monitor] Respiratory 14 18 Rate Blood Pressure 137/98 128/92 157/96 O2 Sat by Pulse 98 97 95 Oximetry 04/04/17 04/04/17 04/04/17 00:00 00:15 00:28 Temperature 99.8 F H Pulse Rate 56 L 65 Pulse Rate [ From Monitor] Respiratory 19 20 Rate Blood Pressure 158/90 157/107 O2 Sat by Pulse 99 100 Oximetry 04/04/17 04/04/17 04/04/17 00:30 00:45 01:00 Temperature Pulse Rate 61 56 L 52 L Pulse Rate [ From Monitor] Respiratory 18 20 17 Rate Blood Pressure 149/95 155/92 155/89 O2 Sat by Pulse 100 99 Oximetry 04/04/17 04/04/17 04/04/17 01:15 01:31 01:45 Temperature Pulse Rate 60 57 L 66 Pulse Rate [ From Monitor] Respiratory 16 19 16 Rate Blood Pressure 160/98 152/92 180/111 O2 Sat by Pulse 98 97 95 Oximetry 04/04/17 04/04/17 04/04/17 02:00 02:15 02:30 Temperature Pulse Rate 57 L 62 64 Pulse Rate [ From Monitor] Respiratory 16 17 18 Rate Blood Pressure 159/99 143/99 137/107 O2 Sat by Pulse 98 97 94 Oximetry 04/04/17 04/04/17 04/04/17 02:45 03:01 03:15 Temperature Pulse Rate 54 L 59 L 59 L Pulse Rate [ From Monitor] Respiratory 17 17 18 Rate Blood Pressure 154/92 156/93 152/90 O2 Sat by Pulse 96 96 95 Oximetry 04/04/17 04/04/17 04/04/17 03:30 03:45 04:00 Temperature Pulse Rate 59 L 69 66 Pulse Rate [ 59 L From Monitor] Respiratory 15 17 17 Rate Blood Pressure 161/86 161/86 167/97 O2 Sat by Pulse 98 100 97 Oximetry 04/04/17 04/04/17 04/04/17 04:04 04:15 04:30 Temperature 100 F H Pulse Rate 64 66 Pulse Rate [ From Monitor] Respiratory 18 21 Rate Blood Pressure 171/103 164/102 O2 Sat by Pulse 95 94 Oximetry 04/04/17 04/04/17 04/04/17 04:45 05:00 05:15 Temperature Pulse Rate 61 64 57 L Pulse Rate [ From Monitor] Respiratory 18 15 18 Rate Blood Pressure 160/98 165/101 168/94 O2 Sat by Pulse 96 100 97 Oximetry 04/04/17 04/04/17 04/04/17 05:30 05:45 06:00 Temperature Pulse Rate 57 L 67 58 L Pulse Rate [ From Monitor] Respiratory 17 17 17 Rate Blood Pressure 161/85 155/99 148/89 O2 Sat by Pulse 98 96 95 Oximetry 04/04/17 04/04/17 06:15 08:33 Temperature Pulse Rate 55 L Pulse Rate [ From Monitor] Respiratory 16 Rate Blood Pressure 147/87 O2 Sat by Pulse 96 97 Oximetry Gastrointestinal: normoactive bowel sounds, soft, non-distended Integumentary: normal CBC and BMP: 04/01/17 05:30 04/01/17 05:30 ABG, PT/INR, D-dimer: PT/INR, D-dimer PT 12.6 Sec. (12.2-14.9) 03/31/17 Unknown INR 0.95 (0.87-1.13) 03/31/17 Unknown Abnormal lab findings: Abnormal Labs 03/31/17 03/31/17 04/01/17 Unknown Unknown 05:30 WBC 11.8 H 11.9 H Lymph % (Auto) 9.5 L Lymph # 1.1 L [place] # 0.9 H Seg Neutrophils % 84.5 H 76.5 H Seg Neutrophils # 10.0 H 9.1 H Glucose 147 H POC Glucose 04/01/17 04/02/17 04/02/17 05:30 12:40 21:40 WBC Lymph % (Auto) Lymph # [place] # Seg Neutrophils % Seg Neutrophils # Glucose 110 H POC Glucose 108 H 136 H 04/03/17 04/03/17 11:05 15:32 WBC Lymph % (Auto) Lymph # [place] # Seg Neutrophils % Seg Neutrophils # Glucose POC Glucose 139 H 112 H Allied health notes reviewed: nursing
[2017-04-04] MEDS: BABY ASPIRIN PO SCH (09:21)
[2017-04-04] MEDS: PEPCID IV SCH ×2 (09:21→22:06)
[2017-04-04] MEDS: NORVASC PO SCH (09:21)
[2017-04-04] MEDS: LOPRESSOR PO SCH (09:21)
[2017-04-04] MEDS: XANAX PO SCH ×2 (09:22→22:06)
--- NOTE | 2017-04-04 11:56 | Progress Note ---
Assessment and Plan Assessment and plan: A 56-year-old male presents to the ER via EMS from home with right-sided numbness and weakness. Patient reported this morning after he reached home from work, he developed right-sided numbness, facial droop, slurred speech, and weakness in his right arm and leg. Patient also reported early during the week he had one episode where he felt his right leg was weak and described it as fell asleep not for a long time. It is very difficult to obtain a history from the patient because he is a poor historian and is exhibiting dysarthria and has what appears to be expressive aphasia. Patient denies headache, chest pain, fever, chills, nausea, vomiting, shortness of breath, abdominal pain. EMS reported patient had elevated systolic pressure of SBP > 240. Patient's Medical history hypertension and has not been on meds time one year, asthma as a child. Patient denies smoking or EtOH use. -Acute ischemic stroke with infarct- EKG and chest x-ray Came in the ER, head CT , TPA administered in the ER, neck CTA, head CTA, carotid Doppler studies, neurology input appreciated, aspirin and statin -Accelerated Hypertension-permissive hypertension per stroke protocol, anti- hypertensive ordered when necessary with parameters -Acute dysarthria/dysphagia-speech and swallow evaluation, continue to speech therapy -DM 2-A1c ordered, monitor Accu-Checks, insulin sliding scale ordered HLD -continue statin -DVT prophylaxis- SCDs ordered Advance Directives: No (Full Code) VTE prophylaxis?: Chemical Plan of care discussed with patient/family: Yes The high probability of a clinically significant, sudden or life threatening deterioration of the [cardiovascular and neurological] system(s) required my full and direct attention, intervention and personal management. The aggregate critical care time was 32 minutes. This time is in addition to time spent performing reported procedures but includes the following: [] Data Review and interpretation [] Patient assessment and monitoring of vital signs [] Documentation [] Medication orders and management History Interval history: he continues to have R sided weakness, dysphagia, and slurred speech, expressive aphasia Hospitalist Physical - Physical exam Narrative exam: General: Patient appears well in no distress HEENT: MMM, EOMI cardiac: S1-S2 heard lungs: clear to auscultation, abdomen: soft, nontender, nondistended bowel sounds positive extremities: no edema clubbing or cyanosis Skin: no rash or lesion Neuro: Right hemiplegia, slurred speech, expressive aphasia- slow responses Psych: appropriate behavior and mood, cognition intact - Constitutional Vitals: Temp Pulse Resp BP Pulse Ox 98.6 F 66 18 135/93 92 04/04/17 08:00 04/04/17 09:30 04/04/17 09:30 04/04/17 09:30 04/04/17 09:30 General appearance: Present: mild distress Results - Labs CBC & Chem 7: 04/01/17 05:30 04/01/17 05:30 Labs: Laboratory Last Values WBC 11.9 K/mm3 (4.5-11.0) H 04/01/17 05:30 RBC 4.61 M/mm3 (3.65-5.03) 04/01/17 05:30 Hgb 14.4 gm/dl (11.8-15.2) 04/01/17 05:30 Hct 42.7 % (35.5-45.6) 04/01/17 05:30 MCV 93 fl (84-94) 04/01/17 05:30 MCH 31 pg (28-32) 04/01/17 05:30 MCHC 34 % (32-34) 04/01/17 05:30 RDW 13.9 % (13.2-15.2) 04/01/17 05:30 Plt Count 251 K/mm3 (140-440) 04/01/17 05:30 Lymph % (Auto) 15.0 % (13.4-35.0) 04/01/17 05:30 [place] % (Auto) 7.3 % (0.0-7.3) 04/01/17 05:30 Eos % (Auto) 0.7 % (0.0-4.3) 04/01/17 05:30 Baso % (Auto) 0.5 % (0.0-1.8) 04/01/17 05:30 Lymph # 1.8 K/mm3 (1.2-5.4) 04/01/17 05:30 [place] # 0.9 K/mm3 (0.0-0.8) H 04/01/17 05:30 Eos # 0.1 K/mm3 (0.0-0.4) 04/01/17 05:30 Baso # 0.1 K/mm3 (0.0-0.1) 04/01/17 05:30 Seg Neutrophils % 76.5 % (40.0-70.0) H 04/01/17 05:30 Seg Neutrophils # 9.1 K/mm3 (1.8-7.7) H 04/01/17 05:30 PT 12.6 Sec. (12.2-14.9) 03/31/17 Unknown INR 0.95 (0.87-1.13) 03/31/17 Unknown APTT 26.6 Sec. (24.2-36.6) 03/31/17 Unknown Thrombin Time 16.6 Sec. (15.1-19.6) 03/31/17 Unknown Sodium 139 mmol/L (137-145) 04/01/17 05:30 Potassium 3.7 mmol/L (3.6-5.0) 04/01/17 05:30 Chloride 99.8 mmol/L (98-107) 04/01/17 05:30 Carbon Dioxide 24 mmol/L (22-30) 04/01/17 05:30 Anion Gap 19 mmol/L 04/01/17 05:30 BUN 15 mg/dL (9-20) 04/01/17 05:30 Creatinine 1.2 mg/dL (0.8-1.5) 04/01/17 05:30 Estimated GFR > 60 ml/min 04/01/17 05:30 BUN/Creatinine Ratio 12.50 % 04/01/17 05:30 Glucose 110 mg/dL (75-100) H 04/01/17 05:30 POC Glucose 93 (70-105) 04/04/17 08:24 Calcium 8.5 mg/dL (8.4-10.2) 04/01/17 05:30 Troponin T < 0.010 ng/mL (0.00-0.029) 03/31/17 Unknown Triglycerides 81 mg/dL (2-149) 04/01/17 05:30 Cholesterol 159 mg/dL (50-199) 04/01/17 05:30 LDL Cholesterol Direct 96 mg/dL (50-130) 04/01/17 05:30 HDL Cholesterol 47 mg/dL (40-59) 04/01/17 05:30 Cholesterol/HDL Ratio 3.38 % 04/01/17 05:30
--- NOTE | 2017-04-04 11:57 | Progress Note ---
Assessment and Plan 56 YO M Hx HTN not on AP therapy p/w slurred speech and L sided numbness and R sided weakness that I suspect d/t ischemic stroke s/p tPA in ED w/ initial NIHSS 9 for reportedly suspected L MCA syndrome. CTH & CTA H/N nonacute. TTE neg. LDL 96. NIHSS 3 on my initial eval 04/02 but overnight pt worsened back to presentation NIHSS 9 in setting of hypotension. f/u CTH nonacute w/o ICH. RLE power improved 04/04. Plan and Recommendation: 1. Telemetry bed w/ Q4 hour neuro checks 2. Brain imaging: MRI Brain w/o Dipesh Stroke Protocol 3. Goal SBP 140-180 . 4. Secondary stroke prevention: ASA 325mg Daily x 1 then 81mg QDay & upgrade to full dose statin therapy (Crestor 20mg or 40mg OR Lipitor 40mg or 80mg Daily OR Zocor 40mg QDay) for goal LDL < 70. 5. F/E/N: isotonic IVF prn, prn replete, bedside speech/swallow eval prior to PO intake. 6. DVT Prophylaxis 7. Stroke education, PT/OT/Speech Therapy consults, CM evaluation 8. For any changes in neurologic status, pls obtain STAT CTH w/o contrast and call neurology Subjective Date of service: 04/04/17 Principal diagnosis: CVA s/p TPA, Malignant HTN Interval history: RLE improving power Objective - Vital Sign Vital Signs - 12hr 04/04/17 04/04/17 04/04/17 00:00 00:15 00:28 Temperature 99.8 F H Pulse Rate 56 L 65 Pulse Rate [ From Monitor] Respiratory 19 20 Rate Blood Pressure 158/90 157/107 O2 Sat by Pulse 99 100 Oximetry 04/04/17 04/04/17 04/04/17 00:30 00:45 01:00 Temperature Pulse Rate 61 56 L 52 L Pulse Rate [ From Monitor] Respiratory 18 20 17 Rate Blood Pressure 149/95 155/92 155/89 O2 Sat by Pulse 100 99 Oximetry 04/04/17 04/04/17 04/04/17 01:15 01:31 01:45 Temperature Pulse Rate 60 57 L 66 Pulse Rate [ From Monitor] Respiratory 16 19 16 Rate Blood Pressure 160/98 152/92 180/111 O2 Sat by Pulse 98 97 95 Oximetry 04/04/17 04/04/17 04/04/17 02:00 02:15 02:30 Temperature Pulse Rate 57 L 62 64 Pulse Rate [ From Monitor] Respiratory 16 17 18 Rate Blood Pressure 159/99 143/99 137/107 O2 Sat by Pulse 98 97 94 Oximetry 04/04/17 04/04/17 04/04/17 02:45 03:01 03:15 Temperature Pulse Rate 54 L 59 L 59 L Pulse Rate [ From Monitor] Respiratory 17 17 18 Rate Blood Pressure 154/92 156/93 152/90 O2 Sat by Pulse 96 96 95 Oximetry 04/04/17 04/04/17 04/04/17 03:30 03:45 04:00 Temperature Pulse Rate 59 L 69 66 Pulse Rate [ 59 L From Monitor] Respiratory 15 17 17 Rate Blood Pressure 161/86 161/86 167/97 O2 Sat by Pulse 98 100 97 Oximetry 04/04/17 04/04/17 04/04/17 04:04 04:15 04:30 Temperature 100 F H Pulse Rate 64 66 Pulse Rate [ From Monitor] Respiratory 18 21 Rate Blood Pressure 171/103 164/102 O2 Sat by Pulse 95 94 Oximetry 04/04/17 04/04/17 04/04/17 04:45 05:00 05:15 Temperature Pulse Rate 61 64 57 L Pulse Rate [ From Monitor] Respiratory 18 15 18 Rate Blood Pressure 160/98 165/101 168/94 O2 Sat by Pulse 96 100 97 Oximetry 04/04/17 04/04/17 04/04/17 05:30 05:45 06:00 Temperature Pulse Rate 57 L 67 58 L Pulse Rate [ From Monitor] Respiratory 17 17 17 Rate Blood Pressure 161/85 155/99 148/89 O2 Sat by Pulse 98 96 95 Oximetry 04/04/17 04/04/17 04/04/17 06:15 06:30 06:45 Temperature Pulse Rate 55 L 62 68 Pulse Rate [ From Monitor] Respiratory 16 14 17 Rate Blood Pressure 147/87 176/100 165/102 O2 Sat by Pulse 96 99 95 Oximetry 04/04/17 04/04/17 04/04/17 07:01 07:15 07:31 Temperature Pulse Rate 57 L 57 L 60 Pulse Rate [ From Monitor] Respiratory 17 18 17 Rate Blood Pressure 139/79 133/80 148/95 O2 Sat by Pulse 93 93 95 Oximetry 04/04/17 04/04/17 04/04/17 07:45 08:00 08:01 Temperature 98.6 F Pulse Rate 66 Pulse Rate [ From Monitor] Respiratory 18 19 Rate Blood Pressure 133/80 148/103 O2 Sat by Pulse 95 95 Oximetry 04/04/17 04/04/17 04/04/17 08:15 08:31 08:33 Temperature Pulse Rate 70 71 Pulse Rate [ From Monitor] Respiratory 18 12 Rate Blood Pressure 164/104 164/104 O2 Sat by Pulse 96 87 97 Oximetry 04/04/17 04/04/17 04/04/17 08:45 09:00 09:15 Temperature Pulse Rate 71 71 72 Pulse Rate [ From Monitor] Respiratory 14 22 21 Rate Blood Pressure 164/104 168/93 141/94 O2 Sat by Pulse 96 93 93 Oximetry 04/04/17 04/04/17 09:21 09:30 Temperature Pulse Rate 66 Pulse Rate [ From Monitor] Respiratory 18 Rate Blood Pressure 168/93 135/93 O2 Sat by Pulse 92 Oximetry - General Apperance Constitutional: comfortable - EENT EENT: ATNC, PERRL, mucous membranes moist, hearing intact, vision intact - Respiratory Respiratory: chest non-tender, normal breath sounds, no respiratory distress - Cardiovascular Cardiovascular: regular rate Extremities: no peripheral edema bilat, no clubbing, cyanosis, no inflammation, no ischemia or petechiae - Gastrointestinal Gastrointestinal: normoactive bowel sounds, soft, non-distended - Integumentary Integumentary: normal - Neurologic Cranial nerve examination: PERRL, EOMI, VFF, V1/V2/V3 grossly intact, tongue midline, intact, Intact Vestibulo-ocular r, intact corneal reflex, facial droop (on R mod), normal palatal elevation Speech examination: intact, other (slurred speech) Motor examination - right side: 1/5: biceps, triceps, wrist flexion, wrist extension, saddle lining stitcher, 4/5: hip flexors, knee extensors, dorsiflexion, toe extension ( EHL), plantarflexion Motor examination - left side: 5/5: biceps, triceps, wrist flexion, wrist extension, saddle lining stitcher, hip flexors, knee extensors, dorsiflexion, toe extension (EHL) , plantarflexion Detailed sensory examination: light touch (decr on R) Reflex and gait examination: Babinski's sign (on R) Reflexes: 1+: ankle (on R), 3+: bicep, knee, tricep - Musculoskeletal Musculoskeletal: no fluid collection, no pain, normal range of motion - Psychiatric Psychiatric: mood/affect appropriate, cooperative - Laboratory Findings CBC and BMP: 04/01/17 05:30 04/01/17 05:30 Abnormal Lab Findings: Abnormal Labs 03/31/17 03/31/17 04/01/17 Unknown Unknown 05:30 WBC 11.8 H 11.9 H Lymph % (Auto) 9.5 L Lymph # 1.1 L [place] # 0.9 H Seg Neutrophils % 84.5 H 76.5 H Seg Neutrophils # 10.0 H 9.1 H Glucose 147 H POC Glucose 04/01/17 04/02/17 04/02/17 05:30 12:40 21:40 WBC Lymph % (Auto) Lymph # [place] # Seg Neutrophils % Seg Neutrophils # Glucose 110 H POC Glucose 108 H 136 H 04/03/17 04/03/17 11:05 15:32 WBC Lymph % (Auto) Lymph # [place] # Seg Neutrophils % Seg Neutrophils # Glucose POC Glucose 139 H 112 H
--- NOTE | 2017-04-04 18:30 | Magnetic Resonance Report ---
FINAL REPORT PROCEDURE: MR MRA/MRV HEAD WO CON TECHNIQUE: Unenhanced 3D [id number] images of the vessels of the [place] are obtained. HISTORY: stroke COMPARISON: CTA dated March 31, 2017 FINDINGS: Motion limits this exam. The left vertebral artery is dominant and the right vertebral artery appears to terminate in PICA. Right posterior communicating artery is seen. Both P1 segments are present. Anterior communicating artery is seen. Mild narrowing is suspected of the left ICA in the supraclinoid region, which is exaggerated on this study. 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 No aneurysm formation is seen. IMPRESSION: Mild stenosis is seen in the supraclinoid portion of the distal left ICA, unchanged from prior CTA study.
--- NOTE | 2017-04-04 18:37 | Magnetic Resonance Report ---
FINAL REPORT PROCEDURE: MR BRAIN WO CON TECHNIQUE: Magnetic resonance imaging of the brain was performed without contrast material. HISTORY: stroke, right-sided weakness COMPARISON: Head CT dated April 03, 2017 FINDINGS: Cerebellar tonsils are normally positioned. Motion limits the study. There is recent lacunar infarct in the right side of the feng superimposed upon moderate chronic small vessel ischemic changes in the feng. Another area of restricted diffusion is seen in the left coronal radiata with increased T2 signal, suggesting recent white matter infarct. This evolving infarct is similar to prior CT study. No significant mass effect is seen. There are scattered old micro hemorrhages in the supratentorial and infratentorial brain but no evidence of recent intracranial hemorrhage is seen. Mild mucosal thickening is seen in the right maxillary sinus. Normal flow voids are seen in the visualized portions of the vessels of the [place]. IMPRESSION: Recent lacunar infarct is seen in the right side of the feng with recent evolving infarct seen in the left [place]ley radiata. No significant mass effect is seen. There are foci of old micro hemorrhage without evidence of recent hemorrhagic transformation.
[2017-04-05] MEDS: APRESOLINE IV PRN (06:08)
[2017-04-05] MEDS: XANAX PO SCH ×2 (11:43→21:48)
[2017-04-05] MEDS: PEPCID IV SCH ×2 (11:43→21:49)
[2017-04-05] MEDS: NORVASC PO SCH (11:43)
[2017-04-05] MEDS: BABY ASPIRIN PO SCH (11:43)
[2017-04-05] MEDS ORDERED: TYLENOL PO PRN (11:48)
--- NOTE | 2017-04-05 12:55 | Progress Note ---
Assessment and Plan 56 YO M Hx HTN not on AP therapy p/w slurred speech and L sided numbness and R sided weakness s/p tPA in ED w/ initial NIHSS 9. CTH & CTA H/N nonacute. TTE neg. LDL 96. NIHSS 3 on my initial eval 04/02 but overnight pt worsened back to presentation NIHSS 9 in setting of hypotension. f/u CTH nonacute w/o ICH. RLE power improved 04/04. Clinically stable 04/05. MRI Brain confirms acute lacunar infarcts to R feng and L [place]ley radiata w/ intracranial athero. Plan and Recommendation: 1. Telemetry bed w/ Q4 hour neuro checks 2. Goal SBP 140-180 . 3. Secondary stroke prevention: ASA 325mg Daily x 1 then 81mg QDay & upgrade to full dose statin therapy (Crestor 20mg or 40mg OR Lipitor 40mg or 80mg Daily OR Zocor 40mg QDay) for goal LDL < 70. 4. F/E/N: isotonic IVF prn, prn replete, bedside speech/swallow eval prior to PO intake. 5. DVT Prophylaxis 6. Stroke education, PT/OT/Speech Therapy consults, CM evaluation 7. For any changes in neurologic status, pls obtain STAT CTH w/o contrast and call neurology 8. Neuro clear for D/c to rehab. We can revisit as needed. Subjective Date of service: 04/05/17 Principal diagnosis: CVA s/p TPA, Malignant HTN Interval history: moved to floor. feels hot but RUE and RLE stable Objective - Vital Sign Vital Signs - 12hr 04/05/17 04/05/17 04/05/17 04:00 06:08 09:09 Temperature 98.0 F 98.3 F Pulse Rate 66 73 Pulse Rate [ From Monitor] Respiratory 18 18 Rate Blood Pressure 168/107 Blood Pressure 169/107 163/97 [Right] O2 Sat by Pulse 98 Oximetry 04/05/17 04/05/17 04/05/17 10:00 11:43 12:00 Temperature Pulse Rate 81 Pulse Rate [ 73 From Monitor] Respiratory Rate Blood Pressure 163/97 Blood Pressure [Right] O2 Sat by Pulse 97 97 Oximetry - General Apperance Constitutional: comfortable, acutely ill - EENT EENT: ATNC, PERRL, mucous membranes moist, hearing intact, vision intact - Respiratory Respiratory: chest non-tender, normal breath sounds, no respiratory distress - Cardiovascular Cardiovascular: regular rate Extremities: no peripheral edema bilat, no clubbing, cyanosis, no inflammation, no ischemia or petechiae - Gastrointestinal Gastrointestinal: normoactive bowel sounds, soft, non-distended - Integumentary Integumentary: normal - Neurologic Cranial nerve examination: PERRL, EOMI, VFF, V1/V2/V3 grossly intact, tongue midline, intact, intact shoulder shrug, facial droop (mod on R), normal palatal elevation Speech examination: intact, other (slurred) Motor examination - right side: 5: biceps, triceps, wrist flexion, wrist extension, winder operator, 4/5: hip flexors, knee extensors, dorsiflexion, toe extension ( EHL), plantarflexion Motor examination - left side: 02/16: biceps, triceps, wrist flexion, wrist extension, winder operator, hip flexors, knee extensors, dorsiflexion, toe extension (EHL) , plantarflexion Detailed sensory examination: light touch (diminished on R) Reflex and gait examination: Babinski's sign (on R) - Musculoskeletal Musculoskeletal: no fluid collection, no pain, normal range of motion - Laboratory Findings CBC and BMP: 04/01/17 05:30 04/01/17 05:30 Abnormal Lab Findings: Abnormal Labs 03/31/17 03/31/17 04/01/17 Unknown Unknown 05:30 WBC 11.8 H 11.9 H Lymph % (Auto) 9.5 L Lymph # 1.1 L [place] # 0.9 H Seg Neutrophils % 84.5 H 76.5 H Seg Neutrophils # 10.0 H 9.1 H Glucose 147 H POC Glucose 04/01/17 04/02/17 04/02/17 05:30 12:40 21:40 WBC Lymph % (Auto) Lymph # [place] # Seg Neutrophils % Seg Neutrophils # Glucose 110 H POC Glucose 108 H 136 H 04/03/17 04/03/17 11:05 15:32 WBC Lymph % (Auto) Lymph # [place] # Seg Neutrophils % Seg Neutrophils # Glucose POC Glucose 139 H 112 H
--- NOTE | 2017-04-05 15:41 | Progress Note ---
Assessment and Plan - Patient Problems (1) Acute ischemic stroke Current Visit: Yes Status: Acute Plan to address problem: s/p TPA SCDs for VTE prophylaxis Secondary stroke prophylaxis PT/OT Speech therapy Secondary stroke prophylaxis Acute rehab evaluation- maybe a good candidate for in patient rehab (2) Malignant hypertension Current Visit: Yes Status: Acute Plan to address problem: Added oral antihypertensives therapy for better blood pressure control Subjective Date of service: 04/05/17 Principal diagnosis: CVA s/p TPA, Malignant HTN Interval history: Seen and examined. Vitals, labs, medications, chart, reviewed. Patient denies any chest pain, no headaches, no shortness of breath, no bleeding. Objective - Exam Narrative Exam: GENERAL: The patient appeared well nourished and normally developed. Sitting up in a chair HEAD: No signs of head trauma, atraumatic, normocephalic. EYES: Pupils are equal. Extraocular motions intact. EARS: Hearing grossly intact. MOUTH: Oropharynx is normal. NECK: No adenopathy, no JVD. CHEST: Chest with clear breath sounds bilaterally. No wheezes, rales, or rhonchi. CARDIAC: Regular rate and rhythm. S1 and S2, without murmurs, gallops, or rubs. VASCULAR: No Edema. Peripheral pulses normal and equal in all extremities. ABDOMEN: Soft, without detectable tenderness. No sign of distention. No rebound or guarding, and no masses palpated. Bowel Sounds normal. MUSCULOSKELETAL: Good range of motion of all major joints. Extremities without clubbing, cyanosis or edema. NEUROLOGIC EXAM: Alert and oriented x 3. The strengths on the right upper extremity is 1 over 5 and 5/5 from the lower extremity bilaterally. Speech is slurred. left facial droop Follows commands. PSYCHIATRIC: Normal affect SKIN: No rash or lesions. Vital Signs - 12hr 04/05/17 04/05/17 04/05/17 04:00 06:08 09:09 Temperature 98.0 F 98.3 F Pulse Rate 66 73 Pulse Rate [ From Monitor] Respiratory 18 18 Rate Blood Pressure 168/107 Blood Pressure 169/107 163/97 [Right] O2 Sat by Pulse 98 Oximetry 04/05/17 04/05/17 04/05/17 10:00 11:43 12:00 Temperature Pulse Rate 81 Pulse Rate [ 73 From Monitor] Respiratory Rate Blood Pressure 163/97 Blood Pressure [Right] O2 Sat by Pulse 97 97 Oximetry Gastrointestinal: normoactive bowel sounds, soft, non-distended Integumentary: normal CBC and BMP: 04/01/17 05:30 04/01/17 05:30 ABG, PT/INR, D-dimer: PT/INR, D-dimer PT 12.6 Sec. (12.2-14.9) 03/31/17 Unknown INR 0.95 (0.87-1.13) 03/31/17 Unknown Abnormal lab findings: Abnormal Labs 03/31/17 03/31/17 04/01/17 Unknown Unknown 05:30 WBC 11.8 H 11.9 H Lymph % (Auto) 9.5 L Lymph # 1.1 L [place] # 0.9 H Seg Neutrophils % 84.5 H 76.5 H Seg Neutrophils # 10.0 H 9.1 H Glucose 147 H POC Glucose 04/01/17 04/02/17 04/02/17 05:30 12:40 21:40 WBC Lymph % (Auto) Lymph # [place] # Seg Neutrophils % Seg Neutrophils # Glucose 110 H POC Glucose 108 H 136 H 04/03/17 04/03/17 11:05 15:32 WBC Lymph % (Auto) Lymph # [place] # Seg Neutrophils % Seg Neutrophils # Glucose POC Glucose 139 H 112 H Allied health notes reviewed: nursing
--- NOTE | 2017-04-05 16:22 | Progress Note ---
Assessment and Plan Assessment and plan: A 56-year-old male presents to the ER via EMS from home with right-sided numbness and weakness. Patient reported this morning after he reached home from work, he developed right-sided numbness, facial droop, slurred speech, and weakness in his right arm and leg. Patient also reported early during the week he had one episode where he felt his right leg was weak and described it as fell asleep not for a long time. It is very difficult to obtain a history from the patient because he is a poor historian and is exhibiting dysarthria and has what appears to be expressive aphasia. Patient denies headache, chest pain, fever, chills, nausea, vomiting, shortness of breath, abdominal pain. EMS reported patient had elevated systolic pressure of SBP > 240. Patient's Medical history hypertension and has not been on meds time one year, asthma as a child. Patient denies smoking or EtOH use. -Acute ischemic stroke with infarct- optimize BP meds, Neurology input appreciated optimize meds, aspirin, statin were added for secondary prevention Dysphagia speech eval appreciated, [place] [facility] [place] [facility] [place] -Accelerated Hypertension-permissive hypertension per stroke protocol, anti- hypertensive ordered when necessary with parameters -Acute dysarthria/dysphagia-speech and swallow evaluation ordered -DM 2-A1c ordered, monitor Accu-Checks, insulin sliding scale ordered -DVT prophylaxis- SCDs ordered Advance Directives: No (Full Code) VTE prophylaxis?: Chemical Plan of care discussed with patient/family: Yes History Interval history: he continues to have R sided weakness, dysphagia, and slurred speech, expressive aphasia Hospitalist Physical - Physical exam Narrative exam: General: Patient appears well in no distress HEENT: MMM, EOMI cardiac: S1-S2 heard lungs: clear to auscultation, abdomen: soft, nontender, nondistended bowel sounds positive extremities: no edema clubbing or cyanosis Skin: no rash or lesion Neuro: Right hemiplegia, slurred speech, expressive aphasia- slow responses Psych: appropriate behavior and mood, cognition intact - Constitutional Vitals: Temp Pulse Resp BP Pulse Ox 98.3 F 73 18 163/97 97 04/05/17 09:09 04/05/17 12:00 04/05/17 09:09 04/05/17 11:43 04/05/17 12:00 General appearance: Present: mild distress Results - Labs CBC & Chem 7: 04/01/17 05:30 04/01/17 05:30 Labs: Laboratory Last Values WBC 11.9 K/mm3 (4.5-11.0) H 04/01/17 05:30 RBC 4.61 M/mm3 (3.65-5.03) 04/01/17 05:30 Hgb 14.4 gm/dl (11.8-15.2) 04/01/17 05:30 Hct 42.7 % (35.5-45.6) 04/01/17 05:30 MCV 93 fl (84-94) 04/01/17 05:30 MCH 31 pg (28-32) 04/01/17 05:30 MCHC 34 % (32-34) 04/01/17 05:30 RDW 13.9 % (13.2-15.2) 04/01/17 05:30 Plt Count 251 K/mm3 (140-440) 04/01/17 05:30 Lymph % (Auto) 15.0 % (13.4-35.0) 04/01/17 05:30 [place] % (Auto) 7.3 % (0.0-7.3) 04/01/17 05:30 Eos % (Auto) 0.7 % (0.0-4.3) 04/01/17 05:30 Baso % (Auto) 0.5 % (0.0-1.8) 04/01/17 05:30 Lymph # 1.8 K/mm3 (1.2-5.4) 04/01/17 05:30 [place] # 0.9 K/mm3 (0.0-0.8) H 04/01/17 05:30 Eos # 0.1 K/mm3 (0.0-0.4) 04/01/17 05:30 Baso # 0.1 K/mm3 (0.0-0.1) 04/01/17 05:30 Seg Neutrophils % 76.5 % (40.0-70.0) H 04/01/17 05:30 Seg Neutrophils # 9.1 K/mm3 (1.8-7.7) H 04/01/17 05:30 PT 12.6 Sec. (12.2-14.9) 03/31/17 Unknown INR 0.95 (0.87-1.13) 03/31/17 Unknown APTT 26.6 Sec. (24.2-36.6) 03/31/17 Unknown Thrombin Time 16.6 Sec. (15.1-19.6) 03/31/17 Unknown Sodium 139 mmol/L (137-145) 04/01/17 05:30 Potassium 3.7 mmol/L (3.6-5.0) 04/01/17 05:30 Chloride 99.8 mmol/L (98-107) 04/01/17 05:30 Carbon Dioxide 24 mmol/L (22-30) 04/01/17 05:30 Anion Gap 19 mmol/L 04/01/17 05:30 BUN 15 mg/dL (9-20) 04/01/17 05:30 Creatinine 1.2 mg/dL (0.8-1.5) 04/01/17 05:30 Estimated GFR > 60 ml/min 04/01/17 05:30 BUN/Creatinine Ratio 12.50 % 04/01/17 05:30 Glucose 110 mg/dL (75-100) H 04/01/17 05:30 POC Glucose 100 (70-105) 04/04/17 20:20 Calcium 8.5 mg/dL (8.4-10.2) 04/01/17 05:30 Troponin T < 0.010 ng/mL (0.00-0.029) 03/31/17 Unknown Triglycerides 81 mg/dL (2-149) 04/01/17 05:30 Cholesterol 159 mg/dL (50-199) 04/01/17 05:30 LDL Cholesterol Direct 96 mg/dL (50-130) 04/01/17 05:30 HDL Cholesterol 47 mg/dL (40-59) 04/01/17 05:30 Cholesterol/HDL Ratio 3.38 % 04/01/17 05:30
[2017-04-05] MEDS: ZESTRIL PO SCH (17:40)
[2017-04-06] MEDS: NORVASC PO SCH (10:11)
[2017-04-06] MEDS: PEPCID IV SCH ×2 (10:11→21:37)
[2017-04-06] MEDS: BABY ASPIRIN PO SCH (10:11)
[2017-04-06] MEDS: XANAX PO SCH ×2 (10:11→21:37)
[2017-04-06] MEDS: ZESTRIL PO SCH (10:11)
--- NOTE | 2017-04-06 11:13 | Progress Note ---
Assessment and Plan - Patient Problems (1) Acute ischemic stroke Current Visit: Yes Status: Acute Plan to address problem: s/p TPA SCDs for VTE prophylaxis Secondary stroke prophylaxis Continue PT/OT Continue Speech therapy Aspiration precautions Falls precautions Acute rehab evaluation- maybe a good candidate for in patient rehab (2) Malignant hypertension Current Visit: Yes Status: Acute Plan to address problem: Continue oral antihypertensives therapy for blood pressure control Subjective Date of service: 04/06/17 Principal diagnosis: CVA s/p TPA, Malignant HTN Interval history: Seen and examined. Vitals, labs, medications, chart, reviewed. Patient denies any chest pain, no headaches, no shortness of breath, no bleeding. Objective - Exam Narrative Exam: General: Patient appears well in no distress HEENT: MMM, EOMI cardiac: S1-S2 heard lungs: clear to auscultation, abdomen: soft, nontender, nondistended bowel sounds positive extremities: no edema clubbing or cyanosis Skin: no rash or lesion Neuro: Right hemiplegia, slurred speech, expressive aphasia- slow responses Psych: appropriate behavior and mood, cognition intact Vital Signs - 12hr 04/06/17 04/06/17 04/06/17 00:21 03:46 05:20 Temperature 98.3 F 98.6 F Pulse Rate 79 70 78 Pulse Rate [ From Monitor] Respiratory 20 18 Rate Blood Pressure Blood Pressure 157/90 151/92 [Left] Blood Pressure 157/90 151/92 [Right] O2 Sat by Pulse 95 94 Oximetry 04/06/17 04/06/17 04/06/17 08:00 10:00 10:11 Temperature 98.3 F Pulse Rate 70 71 70 Pulse Rate [ 70 From Monitor] Respiratory 20 20 Rate Blood Pressure 162/98 Blood Pressure 162/98 [Left] Blood Pressure 162/98 [Right] O2 Sat by Pulse 95 95 Oximetry Gastrointestinal: normoactive bowel sounds, soft, non-distended Integumentary: normal CBC and BMP: 04/08/17 16:43 04/01/17 05:30 ABG, PT/INR, D-dimer: PT/INR, D-dimer PT 12.6 Sec. (12.2-14.9) 03/31/17 Unknown INR 0.95 (0.87-1.13) 03/31/17 Unknown Abnormal lab findings: Abnormal Labs 06/03/31/17 04/01/17 Unknown Unknown 05:30 WBC 11.8 H 11.9 H Lymph % (Auto) 9.5 L Lymph # 1.1 L [place] # 0.9 H Seg Neutrophils % 84.5 H 76.5 H Seg Neutrophils # 10.0 H 9.1 H Glucose 147 H POC Glucose 04/01/17 04/02/17 04/02/17 05:30 12:40 21:40 WBC Lymph % (Auto) Lymph # [place] # Seg Neutrophils % Seg Neutrophils # Glucose 110 H POC Glucose 108 H 136 H 04/03/17 04/03/17 11:05 15:32 WBC Lymph % (Auto) Lymph # [place] # Seg Neutrophils % Seg Neutrophils # Glucose POC Glucose 139 H 112 H Allied health notes reviewed: nursing
--- NOTE | 2017-04-06 14:57 | Fluoroscopy Report ---
Modified barium swallow: History: Dysphagia Findings: There is no anatomic obstruction contributed to the flow of liquid semisolid and solid to the cervical esophagus. Mild penetration was noted. Impression: Complete report will be provided by speech therapist.
[2017-04-06] MEDS ORDERED: ZESTRIL PO SCH ×2 (15:00)
--- NOTE | 2017-04-07 09:08 | Progress Note ---
Assessment and Plan - Patient Problems (1) Acute ischemic stroke Current Visit: Yes Status: Acute Plan to address problem: s/p TPA SCDs for VTE prophylaxis Secondary stroke prophylaxis Continue PT/OT Continue Speech therapy Aspiration precautions Falls precautions Acute rehab evaluation- maybe a good candidate for in patient rehab (2) Malignant hypertension Current Visit: Yes Status: Acute Plan to address problem: Continue oral antihypertensives therapy for blood pressure control Subjective Date of service: 04/07/17 Principal diagnosis: CVA s/p TPA, Malignant HTN Interval history: Seen and examined. Vitals, labs, medications, chart, reviewed. Patient denies any chest pain, no headaches, no shortness of breath, no bleeding. No acute overnight events reported or documented. modified diet with aspiration precautions Objective - Exam Narrative Exam: General: Patient appears well in no distress HEENT: MMM, EOMI cardiac: S1-S2 heard lungs: clear to auscultation, abdomen: soft, nontender, nondistended bowel sounds positive extremities: no edema clubbing or cyanosis Skin: no rash or lesion Neuro: Right hemiplegia, slurred speech, expressive aphasia- slow responses Psych: appropriate behavior and mood, cognition intact Vital Signs - 12hr 04/06/17 04/06/17 04/06/17 21:39 21:48 22:19 Temperature 98.5 F Pulse Rate [ 0 L From Monitor] Pulse Rate [ 0 L Left Dorsalis Pedis] Pulse Rate [ 91 H Left Radial] Pulse Rate [ 0 L Right Dorsalis Pedis] Pulse Rate [ 0 L Right Radial] Respiratory 20 Rate Respiratory 20 Rate [denies pain] Blood Pressure 124/85 [Left Arm] Blood Pressure 0/0 [Right Arm] O2 Sat by Pulse 97 97 Oximetry 04/07/17 04/07/17 01:31 06:25 Temperature 98.8 F 98.8 F Pulse Rate [ 0 L 0 L From Monitor] Pulse Rate [ 0 L 0 L Left Dorsalis Pedis] Pulse Rate [ 79 81 Left Radial] Pulse Rate [ 0 L 0 L Right Dorsalis Pedis] Pulse Rate [ 0 L 0 L Right Radial] Respiratory 18 18 Rate Respiratory Rate [denies pain] Blood Pressure 155/93 155/98 [Left Arm] Blood Pressure 0/0 0/0 [Right Arm] O2 Sat by Pulse 97 95 Oximetry Gastrointestinal: normoactive bowel sounds, soft, non-distended Integumentary: normal CBC and BMP: 04/08/17 16:43 04/01/17 05:30 ABG, PT/INR, D-dimer: PT/INR, D-dimer PT 12.6 Sec. (12.2-14.9) 03/31/17 Unknown INR 0.95 (0.87-1.13) 03/31/17 Unknown Abnormal lab findings: Abnormal Labs 03/31/17 03/31/17 04/01/17 Unknown Unknown 05:30 WBC 11.8 H 11.9 H Lymph % (Auto) 9.5 L Lymph # 1.1 L [place] # 0.9 H Seg Neutrophils % 84.5 H 76.5 H Seg Neutrophils # 10.0 H 9.1 H Glucose 147 H POC Glucose 04/01/17 04/02/17 04/02/17 05:30 12:40 21:40 WBC Lymph % (Auto) Lymph # [place] # Seg Neutrophils % Seg Neutrophils # Glucose 110 H POC Glucose 108 H 136 H 04/03/17 04/03/17 11:05 15:32 WBC Lymph % (Auto) Lymph # [place] # Seg Neutrophils % Seg Neutrophils # Glucose POC Glucose 139 H 112 H Allied health notes reviewed: nursing
[2017-04-07] MEDS ORDERED: ZESTRIL PO SCH (10:00)
[2017-04-07] MEDS: BABY ASPIRIN PO SCH (10:59)
[2017-04-07] MEDS: PEPCID IV SCH ×2 (10:59→22:09)
[2017-04-07] MEDS: XANAX PO SCH ×2 (10:59→22:09)
[2017-04-07] MEDS: NORVASC PO SCH (11:00)
[2017-04-07] MEDS: THALITONE PO SCH (11:00)
--- NOTE | 2017-04-07 11:44 | Progress Note ---
Assessment and Plan Assessment and plan: A 56-year-old male presents to the ER via EMS from home with right-sided numbness and weakness. Patient reported this morning after he reached home from work, he developed right-sided numbness, facial droop, slurred speech, and weakness in his right arm and leg. Patient also reported early during the week he had one episode where he felt his right leg was weak and described it as fell asleep not for a long time. It is very difficult to obtain a history from the patient because he is a poor historian and is exhibiting dysarthria and has what appears to be expressive aphasia. Patient denies headache, chest pain, fever, chills, nausea, vomiting, shortness of breath, abdominal pain. EMS reported patient had elevated systolic pressure of SBP > 240. Patient's Medical history hypertension and has not been on meds time one year, asthma as a child. Patient denies smoking or EtOH use. -Acute ischemic stroke with infarct- optimize BP meds, Neurology input appreciated optimize meds, aspirin, statin were added for secondary prevention Dysphagia speech eval appreciated, obtain [facility] [place] [facility] soft diet. -Accelerated Hypertension-permissive hypertension per stroke protocol, anti- hypertensive ordered when necessary with parameters -Acute dysarthria/dysphagia-speech and swallow evaluation ordered -DM 2-A1c ordered, monitor Accu-Checks, insulin sliding scale ordered -DVT prophylaxis- SCDs ordered Advance Directives: No (Full Code) VTE prophylaxis?: Chemical Plan of care discussed with patient/family: Yes History Interval history: he continues to have R sided weakness, dysphagia, and slurred speech, expressive aphasia Hospitalist Physical - Physical exam Narrative exam: General: Patient appears well in no distress HEENT: MMM, EOMI cardiac: S1-S2 heard lungs: clear to auscultation, abdomen: soft, nontender, nondistended bowel sounds positive extremities: no edema clubbing or cyanosis Skin: no rash or lesion Neuro: Right hemiplegia, slurred speech, expressive aphasia- slow responses Psych: appropriate behavior and mood, cognition intact - Constitutional Vitals: Temp Pulse Resp BP Pulse Ox 98.2 F 87 20 169/96 95 04/07/17 09:17 04/07/17 11:00 04/07/17 09:17 04/07/17 11:00 04/07/17 09:17 General appearance: Present: mild distress Results - Labs CBC & Chem 7: 04/01/17 05:30 04/01/17 05:30 Labs: Laboratory Last Values WBC 11.9 K/mm3 (4.5-11.0) H 04/01/17 05:30 RBC 4.61 M/mm3 (3.65-5.03) 04/01/17 05:30 Hgb 14.4 gm/dl (11.8-15.2) 04/01/17 05:30 Hct 42.7 % (35.5-45.6) 04/01/17 05:30 MCV 93 fl (84-94) 04/01/17 05:30 MCH 31 pg (28-32) 04/01/17 05:30 MCHC 34 % (32-34) 04/01/17 05:30 RDW 13.9 % (13.2-15.2) 04/01/17 05:30 Plt Count 251 K/mm3 (140-440) 04/01/17 05:30 Lymph % (Auto) 15.0 % (13.4-35.0) 04/01/17 05:30 [place] % (Auto) 7.3 % (0.0-7.3) 04/01/17 05:30 Eos % (Auto) 0.7 % (0.0-4.3) 04/01/17 05:30 Baso % (Auto) 0.5 % (0.0-1.8) 04/01/17 05:30 Lymph # 1.8 K/mm3 (1.2-5.4) 04/01/17 05:30 [place] # 0.9 K/mm3 (0.0-0.8) H 04/01/17 05:30 Eos # 0.1 K/mm3 (0.0-0.4) 04/01/17 05:30 Baso # 0.1 K/mm3 (0.0-0.1) 04/01/17 05:30 Seg Neutrophils % 76.5 % (40.0-70.0) H 04/01/17 05:30 Seg Neutrophils # 9.1 K/mm3 (1.8-7.7) H 04/01/17 05:30 PT 12.6 Sec. (12.2-14.9) 03/31/17 Unknown INR 0.95 (0.87-1.13) 03/31/17 Unknown APTT 26.6 Sec. (24.2-36.6) 03/31/17 Unknown Thrombin Time 16.6 Sec. (15.1-19.6) 03/31/17 Unknown Sodium 139 mmol/L (137-145) 04/01/17 05:30 Potassium 3.7 mmol/L (3.6-5.0) 04/01/17 05:30 Chloride 99.8 mmol/L (98-107) 04/01/17 05:30 Carbon Dioxide 24 mmol/L (22-30) 04/01/17 05:30 Anion Gap 19 mmol/L 04/01/17 05:30 BUN 15 mg/dL (9-20) 04/01/17 05:30 Creatinine 1.2 mg/dL (0.8-1.5) 04/01/17 05:30 Estimated GFR > 60 ml/min 04/01/17 05:30 BUN/Creatinine Ratio 12.50 % 04/01/17 05:30 Glucose 110 mg/dL (75-100) H 04/01/17 05:30 POC Glucose 100 (70-105) 04/04/17 20:20 Calcium 8.5 mg/dL (8.4-10.2) 04/01/17 05:30 Troponin T < 0.010 ng/mL (0.00-0.029) 03/31/17 Unknown Triglycerides 81 mg/dL (2-149) 04/01/17 05:30 Cholesterol 159 mg/dL (50-199) 04/01/17 05:30 LDL Cholesterol Direct 96 mg/dL (50-130) 04/01/17 05:30 HDL Cholesterol 47 mg/dL (40-59) 04/01/17 05:30 Cholesterol/HDL Ratio 3.38 % 04/01/17 05:30
--- NOTE | 2017-04-07 11:50 | Progress Note ---
Assessment and Plan Assessment and plan: A 56-year-old male presents to the ER via EMS from home with right-sided numbness and weakness. Patient reported this morning after he reached home from work, he developed right-sided numbness, facial droop, slurred speech, and weakness in his right arm and leg. Patient also reported early during the week he had one episode where he felt his right leg was weak and described it as fell asleep not for a long time. It is very difficult to obtain a history from the patient because he is a poor historian and is exhibiting dysarthria and has what appears to be expressive aphasia. Patient denies headache, chest pain, fever, chills, nausea, vomiting, shortness of breath, abdominal pain. EMS reported patient had elevated systolic pressure of SBP > 240. Patient's Medical history hypertension and has not been on meds time one year, asthma as a child. Patient denies smoking or EtOH use. -Acute ischemic stroke with infarct- optimize BP meds, Neurology input appreciated optimize meds, aspirin, statin were added for secondary prevention Dysphagia speech eval appreciated, obtain [facility], [facility] soft diet. -Accelerated Hypertension- optimize PO meds -Acute dysarthria/dysphagia- continue speech therapy Sp, MBS, still aspirating -DM 2 was ruled out, patient is not diabetic dc fingersticks Debility due to CVA unable to ambulate or care for himself, but has no funding to go to rehab planned for home with home PT and ST -DVT prophylaxis- SCDs ordered Advance Directives: No (Full Code) VTE prophylaxis?: Chemical Plan of care discussed with patient/family: Yes History Interval history: he continues to have R sided weakness, dysphagia, and slurred speech, expressive aphasia Hospitalist Physical - Physical exam Narrative exam: General: Patient appears well in no distress HEENT: MMM, EOMI cardiac: S1-S2 heard lungs: clear to auscultation, abdomen: soft, nontender, nondistended bowel sounds positive extremities: no edema clubbing or cyanosis Skin: no rash or lesion Neuro: Right hemiplegia, slurred speech, expressive aphasia- slow responses Psych: appropriate behavior and mood, cognition intact - Constitutional Vitals: Temp Pulse Resp BP Pulse Ox 98.2 F 87 20 169/96 95 04/07/17 09:17 04/07/17 11:00 04/07/17 09:17 04/07/17 11:00 04/07/17 09:17 General appearance: Present: mild distress Results - Labs CBC & Chem 7: 04/01/17 05:30 04/01/17 05:30 Labs: Laboratory Last Values WBC 11.9 K/mm3 (4.5-11.0) H 04/01/17 05:30 RBC 4.61 M/mm3 (3.65-5.03) 04/01/17 05:30 Hgb 14.4 gm/dl (11.8-15.2) 04/01/17 05:30 Hct 42.7 % (35.5-45.6) 04/01/17 05:30 MCV 93 fl (84-94) 04/01/17 05:30 MCH 31 pg (28-32) 04/01/17 05:30 MCHC 34 % (32-34) 04/01/17 05:30 RDW 13.9 % (13.2-15.2) 04/01/17 05:30 Plt Count 251 K/mm3 (140-440) 04/01/17 05:30 Lymph % (Auto) 15.0 % (13.4-35.0) 04/01/17 05:30 [place] % (Auto) 7.3 % (0.0-7.3) 04/01/17 05:30 Eos % (Auto) 0.7 % (0.0-4.3) 04/01/17 05:30 Baso % (Auto) 0.5 % (0.0-1.8) 04/01/17 05:30 Lymph # 1.8 K/mm3 (1.2-5.4) 04/01/17 05:30 [place] # 0.9 K/mm3 (0.0-0.8) H 04/01/17 05:30 Eos # 0.1 K/mm3 (0.0-0.4) 04/01/17 05:30 Baso # 0.1 K/mm3 (0.0-0.1) 04/01/17 05:30 Seg Neutrophils % 76.5 % (40.0-70.0) H 04/01/17 05:30 Seg Neutrophils # 9.1 K/mm3 (1.8-7.7) H 04/01/17 05:30 PT 12.6 Sec. (12.2-14.9) 03/31/17 Unknown INR 0.95 (0.87-1.13) 03/31/17 Unknown APTT 26.6 Sec. (24.2-36.6) 03/31/17 Unknown Thrombin Time 16.6 Sec. (15.1-19.6) 03/31/17 Unknown Sodium 139 mmol/L (137-145) 04/01/17 05:30 Potassium 3.7 mmol/L (3.6-5.0) 04/01/17 05:30 Chloride 99.8 mmol/L (98-107) 04/01/17 05:30 Carbon Dioxide 24 mmol/L (22-30) 04/01/17 05:30 Anion Gap 19 mmol/L 04/01/17 05:30 BUN 15 mg/dL (9-20) 04/01/17 05:30 Creatinine 1.2 mg/dL (0.8-1.5) 04/01/17 05:30 Estimated GFR > 60 ml/min 04/01/17 05:30 BUN/Creatinine Ratio 12.50 % 04/01/17 05:30 Glucose 110 mg/dL (75-100) H 04/01/17 05:30 POC Glucose 100 (70-105) 04/04/17 20:20 Calcium 8.5 mg/dL (8.4-10.2) 04/01/17 05:30 Troponin T < 0.010 ng/mL (0.00-0.029) 03/31/17 Unknown Triglycerides 81 mg/dL (2-149) 04/01/17 05:30 Cholesterol 159 mg/dL (50-199) 04/01/17 05:30 LDL Cholesterol Direct 96 mg/dL (50-130) 04/01/17 05:30 HDL Cholesterol 47 mg/dL (40-59) 04/01/17 05:30 Cholesterol/HDL Ratio 3.38 % 04/01/17 05:30
[2017-04-07] MEDS: DIOVAN PO SCH (22:09)
[2017-04-08] MEDS: APRESOLINE IV PRN (09:09)
[2017-04-08] MEDS: PEPCID IV SCH ×2 (09:09→22:52)
[2017-04-08] MEDS: DIOVAN PO SCH ×2 (09:13→22:52)
[2017-04-08] MEDS: NORVASC PO SCH (09:29)
[2017-04-08] MEDS: THALITONE PO SCH (09:29)
[2017-04-08] MEDS: BABY ASPIRIN PO SCH (09:29)
[2017-04-08] MEDS: XANAX PO SCH ×2 (09:29→22:53)
--- NOTE | 2017-04-08 17:09 | Progress Note ---
Assessment and Plan - Patient Problems (1) Acute ischemic stroke Current Visit: Yes Status: Acute Plan to address problem: s/p TPA SCDs for VTE prophylaxis Secondary stroke prophylaxis Continue PT/OT Continue Speech therapy Aspiration precautions Falls precautions Acute rehab evaluation- maybe a good candidate for in patient rehab (2) Malignant hypertension Current Visit: Yes Status: Acute Plan to address problem: Continue oral antihypertensives therapy for blood pressure control Subjective Date of service: 04/08/17 Principal diagnosis: CVA s/p TPA, Malignant HTN Interval history: Seen and examined. Vitals, labs, medications, chart, reviewed. Patient denies any chest pain, no headaches, no shortness of breath, no bleeding. Sleeping but rousable Objective - Exam Narrative Exam: General: Patient appears well in no distress HEENT: MMM, EOMI cardiac: S1-S2 heard lungs: clear to auscultation, abdomen: soft, nontender, nondistended bowel sounds positive extremities: no edema clubbing or cyanosis Skin: no rash or lesion Neuro: Right hemiplegia, slurred speech, expressive aphasia- slow responses Psych: appropriate behavior and mood, cognition intact Vital Signs - 12hr 04/08/17 04/08/17 04/08/17 07:22 08:53 09:06 Temperature 97.5 F L 97.3 F L Pulse Rate Pulse Rate [ 0 L Apical] Pulse Rate [ 0 L Left Dorsalis Pedis] Pulse Rate [ 80 83 Left Radial] Pulse Rate [ 0 L Right Dorsalis Pedis] Pulse Rate [ 0 L Right [place]opliteal ] Pulse Rate [ 0 L Right Radial] Respiratory 18 20 Rate Blood Pressure Blood Pressure 141/97 [Left Arm] Blood Pressure 0/0 166/104 [Right Arm] O2 Sat by Pulse 95 94 94 Oximetry 04/08/17 04/08/17 04/08/17 09:09 09:13 09:29 Temperature Pulse Rate 83 83 83 Pulse Rate [ Apical] Pulse Rate [ Left Dorsalis Pedis] Pulse Rate [ Left Radial] Pulse Rate [ Right Dorsalis Pedis] Pulse Rate [ Right Popliteal ] Pulse Rate [ Right Radial] Respiratory Rate Blood Pressure 166/104 166/104 166/104 Blood Pressure [Left Arm] Blood Pressure [Right Arm] O2 Sat by Pulse Oximetry 04/08/17 13:01 Temperature 97.4 F L Pulse Rate Pulse Rate [ Apical] Pulse Rate [ Left Dorsalis Pedis] Pulse Rate [ 113 H Left Radial] Pulse Rate [ Right Dorsalis Pedis] Pulse Rate [ Right Popliteal ] Pulse Rate [ Right Radial] Respiratory 18 Rate Blood Pressure Blood Pressure [Left Arm] Blood Pressure 130/77 [Right Arm] O2 Sat by Pulse 95 Oximetry Gastrointestinal: normoactive bowel sounds, soft, non-distended Integumentary: normal CBC and BMP: 04/08/17 16:43 04/08/17 16:43 ABG, PT/INR, D-dimer: PT/INR, D-dimer PT 12.6 Sec. (12.2-14.9) 03/31/17 Unknown INR 0.95 (0.87-1.13) 03/31/17 Unknown Abnormal lab findings: Abnormal Labs 03/31/17 03/31/17 04/01/17 Unknown Unknown 05:30 WBC 11.8 H 11.9 H Lymph % (Auto) 9.5 L Lymph # 1.1 L [place] # 0.9 H Seg Neutrophils % 84.5 H 76.5 H Seg Neutrophils # 10.0 H 9.1 H Glucose 147 H POC Glucose 04/01/17 04/02/17 04/02/17 05:30 12:40 21:40 WBC Lymph % (Auto) Lymph # [place] # Seg Neutrophils % Seg Neutrophils # Glucose 110 H POC Glucose 108 H 136 H 04/03/17 04/03/17 11:05 15:32 WBC Lymph % (Auto) Lymph # [place] # Seg Neutrophils % Seg Neutrophils # Glucose POC Glucose 139 H 112 H Allied health notes reviewed: nursing
[2017-04-08 17:12] LABS: Hematocrit 44.9 % (35.5-45.6); Hemoglobin 15.1 gm/dl (11.8-15.2); Mean Corpuscular HGB Conc 34 % (32-34); Mean Corpuscular Hemoglobin 32 pg (28-32); Mean Corpuscular Volume 94 fl (84-94); Platelet Count 314 K/mm3 (140-440); Red Cell Distribution Width 13.9 % (13.2-15.2); White Blood Count 8.4 K/mm3 (4.5-11.0)
[2017-04-08 17:24] LABS: BUN/Creatinine Ratio 14.7; Chloride 100.1 mmol/L (98-107); Potassium 4.4 mmol/L (3.6-5.0)
--- NOTE | 2017-04-08 18:10 | Progress Note ---
Assessment and Plan Assessment and plan: A 56-year-old male presents to the ER via EMS from home with right-sided numbness and weakness. Patient reported this morning after he reached home from work, he developed right-sided numbness, facial droop, slurred speech, and weakness in his right arm and leg. Patient also reported early during the week he had one episode where he felt his right leg was weak and described it as fell asleep not for a long time. EMS reported patient had elevated systolic pressure of SBP > 240. Patient's Medical history hypertension and has not been on meds for over one year -Acute ischemic stroke with infarct- optimize BP meds, Neurology input appreciated optimize meds, aspirin, statin were added for secondary prevention Dysphagia speech eval appreciated, obtain MBS, [facility] soft diet. -Accelerated Hypertension- optimize PO meds -Acute dysarthria/dysphagia- continue speech therapy Sp, MBS, still aspirating -DM 2 was ruled out, patient is not diabetic dc fingersticks Debility due to CVA unable to ambulate or care for himself, but has no funding to go to rehab planned for home with home PT and ST Acute Kidney injury/vasomotor nephropathy Was likely due to dehydration, will have him a trial of IV fluids, if not improved by tomorrow we'll obtain renal ultrasound and nephrology consults History Interval history: he continues to have R sided weakness, dysphagia, and slurred speech, expressive aphasia Hospitalist Physical - Physical exam Narrative exam: General: Patient appears well in no distress HEENT: MMM, EOMI cardiac: S1-S2 heard lungs: clear to auscultation, abdomen: soft, nontender, nondistended bowel sounds positive extremities: no edema clubbing or cyanosis Skin: no rash or lesion Neuro: Right hemiplegia, slurred speech, expressive aphasia- slow responses Psych: appropriate behavior and mood, cognition intact - Constitutional Vitals: Temp Pulse Resp BP Pulse Ox 97.8 F 83 18 122/63 96 04/08/17 18:03 04/08/17 18:03 04/08/17 18:03 04/08/17 18:03 04/08/17 18:03 General appearance: Present: mild distress Results - Labs CBC & Chem 7: 04/08/17 16:43 04/08/17 16:43 Labs: Laboratory Last Values WBC 8.4 K/mm3 (4.5-11.0) 04/08/17 16:43 RBC 4.80 M/mm3 (3.65-5.03) 04/08/17 16:43 Hgb 15.1 gm/dl (11.8-15.2) 04/08/17 16:43 Hct 44.9 % (35.5-45.6) 04/08/17 16:43 MCV 94 fl (84-94) 04/08/17 16:43 MCH 32 pg (28-32) 04/08/17 16:43 MCHC 34 % (32-34) 04/08/17 16:43 RDW 13.9 % (13.2-15.2) 04/08/17 16:43 Plt Count 314 K/mm3 (140-440) 04/08/17 16:43 Lymph % (Auto) 15.0 % (13.4-35.0) 04/01/17 05:30 [place] % (Auto) 7.3 % (0.0-7.3) 04/01/17 05:30 Eos % (Auto) 0.7 % (0.0-4.3) 04/01/17 05:30 Baso % (Auto) 0.5 % (0.0-1.8) 04/01/17 05:30 Lymph # 1.8 K/mm3 (1.2-5.4) 04/01/17 05:30 [place] # 0.9 K/mm3 (0.0-0.8) H 04/01/17 05:30 Eos # 0.1 K/mm3 (0.0-0.4) 04/01/17 05:30 Baso # 0.1 K/mm3 (0.0-0.1) 04/01/17 05:30 Seg Neutrophils % 76.5 % (40.0-70.0) H 04/01/17 05:30 Seg Neutrophils # 9.1 K/mm3 (1.8-7.7) H 04/01/17 05:30 PT 12.6 Sec. (12.2-14.9) 03/31/17 Unknown INR 0.95 (0.87-1.13) 03/31/17 Unknown APTT 26.6 Sec. (24.2-36.6) 03/31/17 Unknown Thrombin Time 16.6 Sec. (15.1-19.6) 03/31/17 Unknown Sodium 139 mmol/L (137-145) 04/08/17 16:43 Potassium 4.4 mmol/L (3.6-5.0) 04/08/17 16:43 Chloride 100.1 mmol/L (98-107) 04/08/17 16:43 Carbon Dioxide 25 mmol/L (22-30) 04/08/17 16:43 Anion Gap 18 mmol/L 04/08/17 16:43 BUN 25 mg/dL (9-20) H 04/08/17 16:43 Creatinine 1.7 mg/dL (0.8-1.5) H 04/08/17 16:43 Estimated GFR 42 ml/min 04/08/17 16:43 BUN/Creatinine Ratio 14.70 % 04/08/17 16:43 Glucose 118 mg/dL (75-100) H 04/08/17 16:43 POC Glucose 100 (70-105) 04/04/17 20:20 Calcium 9.0 mg/dL (8.4-10.2) 04/08/17 16:43 Troponin T < 0.010 ng/mL (0.00-0.029) 03/31/17 Unknown Triglycerides 81 mg/dL (2-149) 04/01/17 05:30 Cholesterol 159 mg/dL (50-199) 04/01/17 05:30 LDL Cholesterol Direct 96 mg/dL (50-130) 04/01/17 05:30 HDL Cholesterol 47 mg/dL (40-59) 04/01/17 05:30 Cholesterol/HDL Ratio 3.38 % 04/01/17 05:30
[2017-04-08] MEDS: NACL 0.45% 1000 ML 1,000 ML IV SCH (18:47)
[2017-04-08] MEDS: PROCARDIA XL PO SCH (22:57)
[2017-04-09] MEDS: NACL 0.45% 1000 ML 1,000 ML IV SCH ×2 (02:04→09:45)
[2017-04-09] MEDS: THALITONE PO SCH (09:42)
[2017-04-09] MEDS: DIOVAN PO SCH (09:43)
[2017-04-09] MEDS: PEPCID IV SCH (09:44)
[2017-04-09] MEDS: BABY ASPIRIN PO SCH (09:45)
[2017-04-09] MEDS: PROCARDIA XL PO SCH (09:45)
[2017-04-09] MEDS: XANAX PO SCH (09:45)
--- NOTE | 2017-04-09 11:21 | Discharge Summary ---
Providers - Providers Date of Admission: 03/31/17 17:17 Attending physician: GE BRAUN MD 03/31/17 17:18 Consult to Physician [CONS] Routine Consulting Provider: CARLOS MANUEL CROWE Reason For Exam: critical care Place consult to:: Dr. Crowe Notified:: via in person Phone number called:: none needed Was contact made?: Yes If yes, spoke with:: Dr. Crowe Comment:: Dr. Ocampo (er drMadan) spoke with Dr. Crowe in person in the ER. 04/01/17 16:59 Consult to Physician [CONS] Routine Consulting Provider: ARNIE CHOUDHURY Reason For Exam: cva Place consult to:: Dr Choudhury Notified:: left message Phone number called:: [phone] Was contact made?: No Time called:: 19:49 04/02/17 06:52 Speech Therapy Evaluation and Treat [CONS] Routine Reason For Exam: swallow eval stroke 04/03/17 11:37 Physical Therapy Evaluation and Treat [CONS] Routine Comment: Reason For Exam: EVAL FOR HHC OR ACUTE REHAB IF NEEDED 04/03/17 11:38 Occupational Therapy Evaluate and Treat [CONS] Routine Comment: Reason For Exam: EVALUATION FOR HHC OR REHAB IF NEEDED 04/05/17 08:00 Consult to Dietitian/Nutrition [CONS] Routine Physician Instructions: Reason For Exam: low maría elena score Reason for Consult: swallowing problem Primary care physician: [employer]ING [employer]PER[employer]OR Hospitalization Condition: Stable Hospital course: A 56-year-old male presents to the ER via EMS from home with right-sided numbness and weakness. Patient reported this morning after he reached home from work, he developed right-sided numbness, facial droop, slurred speech, and weakness in his right arm and leg. Patient also reported early during the week he had one episode where he felt his right leg was weak and described it as fell asleep not for a long time. EMS reported patient had elevated systolic pressure of SBP > 240. Patient's Medical history hypertension and has not been on meds for over one year -Acute ischemic stroke with infarct- optimize BP meds, Neurology input appreciated optimize meds, aspirin, statin were added for secondary prevention Dysphagia speech eval appreciated, obtain MBS, [facility] soft diet. -Accelerated Hypertension- optimize PO meds -Acute dysarthria/dysphagia- continue speech therapy Sp, DIANA, still aspirating -DM 2 was ruled out, patient is not diabetic dc fingersticks Debility due to CVA unable to ambulate or care for himself, but has no funding to go to rehab planned for home with home PT and ST Acute Kidney injury/vasomotor nephropathy Was likely due to dehydration, will have him a trial of IV fluids, if not improved by tomorrow we'll obtain renal ultrasound and nephrology consults Disposition: [id number] HOME UNDER HOME HL Time spent for discharge: 32 minutes Core Measure Documentation - Palliative Care Palliative Care/ Comfort Measures: Not Applicable - Core Measures Any of the following diagnoses?: stroke - Stroke Discharge Requirements Statin for LDL = or >70 mg/dl on DC: Yes Anticoag for atrial fib/atrial flutter: Not Applicable Antithrombotic for ischemic stroke: Yes Exam - Physical Exam Narrative exam: General: Patient appears well in no distress HEENT: MMM, EOMI cardiac: S1-S2 heard lungs: clear to auscultation, abdomen: soft, nontender, nondistended bowel sounds positive extremities: no edema clubbing or cyanosis Skin: no rash or lesion Neuro: Right hemiplegia, slurred speech, expressive aphasia- slow responses Psych: appropriate behavior and mood, cognition intact - Constitutional Vitals: Temp Pulse Resp BP Pulse Ox 97.4 F L 89 18 151/90 96 04/09/17 08:00 04/09/17 09:43 04/09/17 08:00 04/09/17 09:43 04/09/17 08:00 Plan Diet: other (mechanical soft with nectar thickened liquids) Follow up with: PRIMARY CARE, [Primary Care Provider] - 3-5 Days Prescriptions: AtorvaSTATin [Lipitor] 40 mg PO QHS #30 tablet ALPRAZolam [Xanax TAB] 1 mg PO BID #30 tablet Aspirin EC [Aspirin Enteric Coated TAB] 81 mg PO QDAY #30 tablet. Chlorthalidone [Thalitone] 25 mg PO QDAY #30 tablet NIFEdipine XL [Procardia Xl] 30 mg PO Q12HR #60 tablet Valsartan [Diovan] 160 mg PO BID #60 tablet
[2017-04-09 13:30] VITALS: BP 159/86
== END 2017-04-09 18:00 | disposition home health service (06) | DRG 64 ==
LOC: ED 14:07 → CC1 17:17 → 4A 04-04 14:16
PROVIDERS: ADMIT Hospitalist; ATTEND Internal Medicine
DX: I63.9 Cerebral infarction, unspecified (principal); N17.0 Acute kidney failure with tubular necrosis; I10 Essential (primary) hypertension; F10.10 Alcohol abuse, uncomplicated; R47.1 Dysarthria and anarthria; R13.10 Dysphagia, unspecified; Z60.2 Problems related to living alone; J45.909 Unspecified asthma, uncomplicated; R29.810 Facial weakness; E78.5 Hyperlipidemia, unspecified; E86.0 Dehydration; Z91.14 Patient's other noncompliance with medication regimen; Z80.42 Family history of malignant neoplasm of prostate; Z82.49 Family history of ischemic heart disease and other diseases of the circulatory system; Z92.82 Status post administration of tPA (rtPA) in a different facility within the last 24 hours prior to admission to current facility
CPT/HCPCS: 36415; 70450; 70496; 70498; 70544; 70551; 74230; 80048; 80061; 82962; 84484; 85025; 85027; 85610; 85670; 85730; 93005; 93010; 93306; 96365; 96367; 96375; 99291; 99292; A9270-GY; J0360; J2405; J2997; J7050; Q9967

== ENCOUNTER → 2018-03-18 16:19 | Emergency (ER) | payer SELFPAY | END | disposition left against medical advice (07) | LOC: ED 16:19 | DX: R06.89 Other abnormalities of breathing (principal); Z53.21 Procedure and treatment not carried out due to patient leaving prior to being seen by health care provider ==

== ENCOUNTER 2019-06-23 15:44 | Inpatient (IN) | payer SELFPAY ==
[2019-06-23] MEDS ORDERED: NACL 0.9% 500 ML 500 ML IV ONE (16:05)
[2019-06-23 16:21] LABS: Basophils % (Auto) 0.3 % (0.0-1.8); Eosinophils % (Auto) 0.1 % (0.0-4.3); Hematocrit 46.7 % (35.5-45.6); Hemoglobin 15.5 gm/dl (11.8-15.2); Lymphocytes # (Auto) 0.7 K/mm3 (1.2-5.4); Lymphocytes % (Auto) 5.3 % (13.4-35.0); Mean Corpuscular HGB Conc 33 % (32-34); Mean Corpuscular Volume 98 fl (84-94); Monocytes # (Auto) 0.8 K/mm3 (0.0-0.8); Monocytes % (Auto) 6.3 % (0.0-7.3); Platelet Count 214 K/mm3 (140-440); Red Blood Count 4.77 M/mm3 (3.65-5.03); Red Cell Distribution Width 14.1 % (13.2-15.2)
[2019-06-23 16:32] LABS: INR 1.09 (0.87-1.13)
[2019-06-23] MEDS ORDERED: ZOSYN/NS 4.5GM/100ML 4.5 GM/100 ML VIAL IV ONE (16:39)
[2019-06-23 16:42] LABS: Albumin 4.2 g/dL (3.9-5); Calcium 9.1 mg/dL (8.4-10.2)
[2019-06-23] MEDS ORDERED: VANCOMYCIN/NS 1 GM/250 ML 1 GM/250 ML BAG IV ONE (17:30)
--- NOTE | 2019-06-23 17:34 | XRay Report ---
CHEST 1 VIEW INDICATION: possible Sepsis. COMPARISON: None. FINDINGS: Support devices: None. Heart: Normal. Lungs/Pleura: No acute pulmonary or pleural findings. IMPRESSION: 1. No acute findings. Signer Name: Storm Aggarwal MD Signed: 06/23/2019 5:30 PM Workstation Name: [id number]
[2019-06-23] MEDS ORDERED: NACL 0.9% 1000 ML 1,000 ML IV ONE (19:05)
[2019-06-23 19:09] LABS: Bilirubin,Urine NEG (Negative); Blood,Urine NEG (Negative); Color,Urine Yellow (Yellow); Mucus,Urine FEW /HPF; Urobilinogen,Urine < 2.0 mg/dL (<2.0)
[2019-06-23] MEDS ORDERED: TYLENOL PO PRN (20:24)
[2019-06-23] MEDS ORDERED: SODIUM CHLORIDE FLUSH SYRINGE 10 ML IV PRN (20:24)
[2019-06-23] MEDS ORDERED: ZOFRAN IV PRN (20:24)
[2019-06-23] MEDS ORDERED: XANAX PO PRN (20:27)
--- NOTE | 2019-06-23 22:14 | History and Physical Report ---
History of Present Illness Date of examination: 06/23/19 Date of admission: 06/23/19 20:24 Chief complaint: Found on floor by roommate History of present illness: 59-year-old male with history of CVA with right-sided deficits, debility secondary to CVA, hypertension, and anxiety who presents to [facility] after being found on floor by roommate. Patient states that he stumbled onto the floor and was unable to get up for approximately 1.5 to 2 days. he said he felt weak and fatigued. During this time that he was on the floor he did not have anything to eat or drink. At baseline pt ambulates with cane. Denies: head trauma/ injury, n/v/d, or headace Past History Past Medical History: hypertension, stroke (right-sided residual deficits at baseline ambulates with cane), other (anxiety) Past Surgical History: No surgical history Social history: other (lives with a roommate) Family history: cancer (father prostate cancer) Medications and Allergies Allergies Allergy/AdvReac Type Severity Reaction Status Date / Time No Known Allergies Allergy Verified 06/23/19 15:58 Home Medications Medication Instructions Recorded Confirmed Last Taken Type ALPRAZolam [Xanax TAB] 1 mg PO BID #30 tablet 04/09/17 06/23/19 06/23/19 Rx Aspirin EC [Halfprin EC] 81 mg PO QDAY #30 tablet. 04/09/17 06/23/19 06/23/19 Rx AtorvaSTATin [Lipitor] 40 mg PO QHS #30 tablet 04/09/17 06/23/19 06/23/19 Rx Chlorthalidone [Thalitone] 25 mg PO QDAY #30 tablet 04/09/17 06/23/19 06/23/19 Rx Active Meds: Active Medications Acetaminophen (Tylenol) 650 mg PO Q4H PRN PRN Reason: Pain MILD(1-3)/Fever >100.5/MCDANIEL Alprazolam (Xanax) 1 mg PO BID PRN PRN Reason: Anxiety Aspirin (Halfprin Ec) 81 mg PO QDAY MARY Chlorthalidone (Thalitone) 25 mg PO QDAY MARY Docusate Sodium (Colace) 100 mg PO BID MARY Heparin Sodium (Porcine) (Heparin) 5,000 unit SUB-Q Q12HR MARY Sodium Chloride (Nacl 0.9% 1000 Ml) 1,000 mls @ 100 mls/hr IV DIRECT MARY Piperacillin Sod/Tazobactam Sod (Zosyn/Ns 3.375gm/50ml) 3.375 gm in 50 mls @ 100 mls/hr IV Q8HR MARY; Protocol Ondansetron HCl (Zofran) 4 mg IV Q8H PRN PRN Reason: Nausea And Vomiting Sodium Chloride (Sodium Chloride Flush Syringe 10 Ml) 10 ml IV BID MARY Sodium Chloride (Sodium Chloride Flush Syringe 10 Ml) 10 ml IV PRN PRN PRN Reason: LINE FLUSH Review of Systems All systems: negative Constitutional: fatigue, weakness Musculoskeletal: frequent falls Neurological: gait dysfunction (ambulates with a cane) Exam - Physical Exam Narrative exam: Physical exam General appearance: Present: Mild discomfort, alert and oriented 3, middle-age, well-developed, adult patient - EENT Eyes: Present: PERRL, EOM intact, abrasion/ bruising to the right thigh ENT: hearing intact, normal dentition - Neck Neck: Present: supple, normal ROM - Respiratory Respiratory effort: Non-labored Respiratory: CTA bilaterally - Cardiovascular Heart rate: 118 (bpm) Rhythm: ST Heart Sounds: Present: S1 & S2. Absent: rub, click - Extremities Extremities: no ischemia, pulses intact, - Peripheral Assessment Peripheral Pulses: within normal limits - Abdominal General gastrointestinal: soft, non-tender, normal bowel sounds - Integumentary Integumentary: Present: warm, dry, left shoulder skin tear, right axillary bruising, left great toe puncture wound - Musculoskeletal Musculoskeletal: generalized weakness, right-sided residual deficits at baseline ambulates with cane -Neurological Neurological: CN II-XII grossly intact - Psychiatric Psychiatric: cooperative - Constitutional Vitals: Temp Pulse Resp BP Pulse Ox 98.2 F 100 H 30 H 142/93 97 06/23/19 19:30 06/23/19 21:00 06/23/19 21:00 06/23/19 21:00 06/23/19 21:00 Results - Labs CBC & Chem 7: 06/23/19 16:09 06/23/19 16:09 Labs: Laboratory Last Values WBC 12.5 K/mm3 (4.5-11.0) H 06/23/19 16:09 RBC 4.77 M/mm3 (3.65-5.03) 06/23/19 16:09 Hgb 15.5 gm/dl (11.8-15.2) H 06/23/19 16:09 Hct 46.7 % (35.5-45.6) H 06/23/19 16:09 MCV 98 fl (84-94) H 06/23/19 16:09 MCH 32 pg (28-32) 06/23/19 16:09 MCHC 33 % (32-34) 06/23/19 16:09 RDW 14.1 % (13.2-15.2) 06/23/19 16:09 Plt Count 214 K/mm3 (140-440) 06/23/19 16:09 Lymph % (Auto) 5.3 % (13.4-35.0) L 06/23/19 16:09 [place] % (Auto) 6.3 % (0.0-7.3) 06/23/19 16:09 Eos % (Auto) 0.1 % (0.0-4.3) 06/23/19 16:09 Baso % (Auto) 0.3 % (0.0-1.8) 06/23/19 16:09 Lymph # 0.7 K/mm3 (1.2-5.4) L 06/23/19 16:09 [place] # 0.8 K/mm3 (0.0-0.8) 06/23/19 16:09 Eos # 0.0 K/mm3 (0.0-0.4) 06/23/19 16:09 Baso # 0.0 K/mm3 (0.0-0.1) 06/23/19 16:09 Seg Neutrophils % 88.0 % (40.0-70.0) H 06/23/19 16:09 Seg Neutrophils # 11.0 K/mm3 (1.8-7.7) H 06/23/19 16:09 PT 13.8 Sec. (12.2-14.9) 06/23/19 16:09 INR 1.09 (0.87-1.13) 06/23/19 16:09 VBG pH 7.439 (7.320-7.420) H 06/23/19 16:09 Sodium 141 mmol/L (137-145) 06/23/19 16:09 Potassium 4.2 mmol/L (3.6-5.0) 06/23/19 16:09 Chloride 101.7 mmol/L (98-107) 06/23/19 16:09 Carbon Dioxide 22 mmol/L (22-30) 06/23/19 16:09 22 mmol/L 06/23/19 16:09 BUN 22 mg/dL (9-20) H 06/23/19 16:09 1.6 mg/dL (0.8-1.5) H 06/23/19 16:09 Estimated GFR 45 ml/min 06/23/19 16:09 14 % 06/23/19 16:09 Glucose 168 mg/dL (75-100) H 06/23/19 16:09 Lactic Acid 3.40 mmol/L (0.7-2.0) H* 06/23/19 19:27 Calcium 9.1 mg/dL (8.4-10.2) 06/23/19 16:09 0.90 mg/dL (0.1-1.2) 06/23/19 16:09 AST 55 units/L (5-40) H 06/23/19 16:09 ALT 45 units/L (7-56) 06/23/19 16:09 78 units/L (35-129) 06/23/19 16:09 2215 units/L (55-170) H 06/23/19 16:09 7.6 g/dL (6.3-8.2) 06/23/19 16:09 4.2 g/dL (3.9-5) 06/23/19 16:09 1.2 % 06/23/19 16:09 Yellow (Yellow) 06/23/19 18:51 Clear (Clear) 06/23/19 18:51 6.0 (5.0-7.0) 06/23/19 18:51 Ur Specific [place] 1.026 (1.003-1.030) 06/23/19 18:51 30 mg/dl mg/dL (Negative) 06/23/19 18:51 Neg mg/dL (Negative) 06/23/19 18:51 20 mg/dL (Negative) 06/23/19 18:51 Neg (Negative) 06/23/19 18:51 Neg (Negative) 06/23/19 18:51 Neg (Negative) 06/23/19 18:51 < 2.0 mg/dL (<2.0) 06/23/19 18:51 Ur Leukocyte Esterase Neg (Negative) 06/23/19 18:51 1.0 /HPF (0.0-6.0) 06/23/19 18:51 1.0 /HPF (0.0-6.0) 06/23/19 18:51 Few /HPF 06/23/19 18:51 - Imaging and Cardiology Imaging and Cardiology: CXR: FINDINGS: Support devices: None. Heart: Normal. Lungs/Pleura: No acute pulmonary or pleural findings. IMPRESSION: 1. No acute findings. Assessment and Plan Assessment and plan: 59-year-old male with history of CVA with right-sided deficits, debility secondary to CVA, hypertension, and anxiety [facility] being found on floor by roommate. Rhabdomyolysis -Likely secondary to dehydration -Continue supportive care -Receiving IVF -Nephrology consulted SU ?? superimposed CDK -Cr on admission 1.6 with GFR 45 -Baseline around 1.2 (2017) -Receiving IV fluids -Nephrology consulted -Avoid nephro toxic agents -Renal dose all meds Leukocytosis -WBC 12.5 -TMAX 99.7 -Cultures pending -On IV abx Lactic acidosis -Lactic Acid 3.40 on admission -on IV abx -On IVF -Continue to monitor Hypertension -Continue to monitor BP -Resume home antihypertensive meds to optimize BP History of CVA -Right-sided residual deficits -Ambulates with cane at baseline -PT/OT eval pending History of anxiety -Continue Xanax when necessary DVT PPX -on Heparin -SCD's Advance Directives: No VTE prophylaxis?: Chemical Plan of care discussed with patient/family: Yes
[2019-06-23] MEDS: HEPARIN SUB-Q SCH (23:45)
[2019-06-23] MEDS: COLACE PO SCH (23:45)
[2019-06-23] MEDS: ZOSYN/NS 3.375GM/50ML 3.375 GM/50 ML BAG IV SCH (23:47)
[2019-06-23] MEDS: SODIUM CHLORIDE FLUSH SYRINGE 10 ML IV SCH (23:48)
--- NOTE | 2019-06-23 23:55 | Emergency Department Report ---
ED Fall HPI - General Chief Complaint: Fall Stated Complaint: FALL Time Seen by Provider: 06/23/19 16:28 Source: patient, EMS, old records reviewed Mode of arrival: Stretcher - History of Present Illness Initial Comments: Mr. Flores is a 59 yo male with hx of CVA who presents after falling last night. Roommate states that he may have been on the floor for 2 days. He normally w alks with walker. He was unable to get up off the floor. He feels hungry. He feels generalized weakness. He denies any pain. Upon arrival, nurse reported that he was covered in feces. MD Complaint: fall -: days(s) (2) Fall From: standing When Fall Occurred: unsure Fall Witnessed: no Place Fall Occurred: home Loss of Consciousness: none Prolonged Down Time?: yes Symptoms Prior to Fall: none Severity: mild Context: tripped/slipped Associated Symptoms: denies - Related Data Previous Rx's Medication Instructions Recorded Last Taken Type ALPRAZolam [Xanax TAB] 1 mg PO BID #30 tablet 04/09/17 06/23/19 Rx Aspirin EC [Halfprin EC] 81 mg PO QDAY #30 tablet. 04/09/17 06/23/19 Rx AtorvaSTATin [Lipitor] 40 mg PO QHS #30 tablet 04/09/17 06/23/19 Rx Chlorthalidone [Thalitone] 25 mg PO QDAY #30 tablet 04/09/17 06/23/19 Rx Allergies Allergy/AdvReac Type Severity Reaction Status Date / Time No Known Allergies Allergy Verified 06/23/19 15:58 ED Review of Systems ROS: Stated complaint: FALL Other details as noted in HPI Comment: All other systems reviewed and negative Constitutional: malaise. denies: fever Cardiovascular: denies: chest pain Gastrointestinal: denies: abdominal pain ED Past Medical Hx - Past Medical History Previous Medical History?: Yes Hx Hypertension: Yes Hx Congestive Heart Failure: No Hx Diabetes: No Hx Asthma: No Hx COPD: No - Social History Smoking Status: Never Smoker Substance Use Type: None - Medications Home Medications: Home Medications Medication Instructions Recorded Confirmed Last Taken Type ALPRAZolam [Xanax TAB] 1 mg PO BID #30 tablet 04/09/17 06/23/19 06/23/19 Rx Aspirin EC [Halfprin EC] 81 mg PO QDAY #30 tablet. 04/09/17 06/23/19 06/23/19 Rx AtorvaSTATin [Lipitor] 40 mg PO QHS #30 tablet 04/09/17 06/23/19 06/23/19 Rx Chlorthalidone [Thalitone] 25 mg PO QDAY #30 tablet 04/09/17 06/23/19 06/23/19 R x ED Physical Exam - General Limitations: Other General appearance: alert, in no apparent distress, other (appears chronically ill and debilitated but nontoxic) - Head Head exam: Present: atraumatic, normocephalic - Eye Eye exam: Present: normal appearance - ENT ENT exam: Present: mucous membranes moist - Neck Neck exam: Present: normal inspection, full ROM - Respiratory Respiratory exam: Present: normal lung sounds bilaterally. Absent: respiratory distress, wheezes, rales, rhonchi - Cardiovascular Cardiovascular Exam: Present: normal rhythm, tachycardia, normal heart sounds. Absent: systolic murmur, diastolic murmur, rubs, gallop - GI/Abdominal GI/Abdominal exam: Present: soft, normal bowel sounds. Absent: distended, te nderness, guarding, rebound - Rectal Rectal exam: Present: deferred - Extremities Exam Extremities exam: Present: normal inspection - Back Exam Back exam: Present: normal inspection - Neurological Exam Neurological exam: Present: alert, oriented X3 - Psychiatric Psychiatric exam: Present: normal mood, flat affect - Skin Skin exam: Present: normal color. Absent: rash ED Course Vital Signs 06/23/19 06/23/19 06/23/19 15:58 16:16 16:30 Temperature 99.7 F H Pulse Rate 126 H 123 H 121 H Respiratory 24 28 H 30 H Rate Blood Pressure Blood Pressure [Right] O2 Sat by Pulse 100 94 97 Oximetry 06/23/19 06/23/19 06/23/19 17:01 17:31 18:01 Temperature 97.2 F L Pulse Rate 116 H 115 H 116 H Respiratory 26 H 28 H 27 H Rate Blood Pressure 151/82 151/82 Blood Pressure 154/82 [Right] O2 Sat by Pulse 96 96 96 Oximetry 06/23/19 06/23/19 06/23/19 18:31 19:30 20:00 Temperature 98.2 F Pulse Rate 115 H 110 H 107 H Respiratory 26 H 24 28 H Rate Blood Pressure 151/82 141/93 Blood Pressure 131/93 [Right] O2 Sat by Pulse 97 95 97 Oximetry 06/23/19 06/23/19 06/23/19 20:31 21:00 21:30 Temperature Pulse Rate 107 H 100 H 99 H Respiratory 30 H 30 H 33 H Rate Blood Pressure 78/53 142/93 137/75 Blood Pressure [Right] O2 Sat by Pulse 95 97 96 Oximetry ED Medical Decision Making - Lab Data Result diagrams: 06/23/19 16:09 06/23/19 16:09 Laboratory Results - last 24 hr 06/23/19 06/23/19 06/23/19 16:09 16:09 16:09 WBC 12.5 H RBC 4.77 Hgb 15.5 H Hct 46.7 H MCV 98 H MCH 32 MCHC 33 RDW 14.1 Plt Count 214 Lymph % (Auto) 5.3 L [place] % (Auto) 6.3 Eos % (Auto) 0.1 Baso % (Auto) 0.3 Lymph # 0.7 L [place] # 0.8 Eos # 0.0 Baso # 0.0 Seg Neutrophils % 88.0 H Seg Neutrophils # 11.0 H PT 13.8 INR 1.09 VBG pH Sodium 141 Potassium 4.2 Chloride 101.7 Carbon Dioxide 22 Anion Gap 22 BUN 22 H Creatinine 1.6 H Estimated GFR 45 BUN/Creatinine Ratio 14 Glucose 168 H Lactic Acid Calcium 9.1 Total Bilirubin 0.90 AST 55 H ALT 45 Alkaline Phosphatase 78 Total Creatine Kinase Total Protein 7.6 Albumin 4.2 Albumin/Globulin Ratio 1.2 Urine Color Urine Turbidity Urine pH Ur Specific [place] Urine Protein Urine Glucose (UA) Urine Ketones Urine Blood Urine Nitrite Urine Bilirubin Urine Urobilinogen Ur Leukocyte Esterase Urine WBC (Auto) Urine RBC (Auto) Urine Mucus 06/23/19 06/23/19 06/23/19 16:09 16:09 16:09 WBC RBC Hgb Hct MCV MCH MCHC RDW Plt Count Lymph % (Auto) [place] % (Auto) Eos % (Auto) Baso % (Auto) Lymph # [place] # Eos # Baso # Seg Neutrophils % Seg Neutrophils # PT INR VBG pH 7.439 H Sodium Potassium Chloride Carbon Dioxide Anion Gap BUN Creatinine Estimated GFR BUN/Creatinine Ratio Glucose Lactic Acid 2.50 H* Calcium Total Bilirubin AST ALT Alkaline Phosphatase Total Creatine Kinase 2215 H Total Protein Albumin Albumin/Globulin Ratio Urine Color Urine Turbidity Urine pH Ur Specific [place] Urine Protein Urine Glucose (UA) Urine Ketones Urine Blood Urine Nitrite Urine Bilirubin Urine Urobilinogen Ur Leukocyte Esterase Urine WBC (Auto) Urine RBC (Auto) Urine Mucus 06/23/19 06/23/19 06/23/19 17:28 18:51 19:27 WBC RBC Hgb Hct MCV MCH MCHC RDW Plt Count Lymph % (Auto) [place] % (Auto) Eos % (Auto) Baso % (Auto) Lymph # [place] # Eos # Baso # Seg Neutrophils % Seg Neutrophils # PT INR VBG pH Sodium Potassium Chloride Carbon Dioxide Anion Gap BUN Creatinine Estimated GFR BUN/Creatinine Ratio Glucose Lactic Acid 3.40 H* 3.40 H* Calcium Total Bilirubin AST ALT Alkaline Phosphatase Total Creatine Kinase Total Protein Albumin Albumin/Globulin Ratio Urine Color Yellow Urine Turbidity Clear Urine pH 6.0 Ur Specific [place] 1.026 Urine Protein 30 mg/dl Urine Glucose (UA) Neg Urine Ketones 20 Urine Blood Neg Urine Nitrite Neg Urine Bilirubin Neg Urine Urobilinogen < 2.0 Ur Leukocyte Esterase Neg Urine WBC (Auto) 1.0 Urine RBC (Auto) 1.0 Urine Mucus Few - EKG Data 06/23/19 23:53 EKG Sinus tachycardia rate 115 beats minute normal axis no ST elevation nonspecific T-wave pattern - Radiology Data Radiology results: report reviewed AP portable chest radiograph no acute findings according to radiology report - Medical Decision Making Mr. Flores presents after prolonged immobilization after falling at home. He has evidence of rhabdomyolysis and SIRS. Unclear of SIRS due to due to infection or volume status. Antibiotic therapy initiated according according to sepsis protocol. Admitted to the hospitalist service for further treatment and evaluation. Critical care attestation.: If time is entered above; I have spent that time in minutes in the direct care of this critically ill patient, excluding procedure time. ED Disposition Clinical Impression: Rhabdomyolysis, SIRS (systemic inflammatory response syndrome) Disposition: OP ADMIT IP TO THIS HOSP Is pt being admited?: Yes Does the pt Need Aspirin: No Condition: Stable
[2019-06-24 04:35] LABS: Basophils % (Auto) 0.5 % (0.0-1.8); Eosinophils # (Auto) 0.2 K/mm3 (0.0-0.4); Hematocrit 43.5 % (35.5-45.6); Hemoglobin 14.8 gm/dl (11.8-15.2); Lymphocytes # (Auto) 1.2 K/mm3 (1.2-5.4); Lymphocytes % (Auto) 13.7 % (13.4-35.0); Mean Corpuscular HGB Conc 34 % (32-34); Mean Corpuscular Volume 97 fl (84-94); Monocytes # (Auto) 0.7 K/mm3 (0.0-0.8); Monocytes % (Auto) 7.8 % (0.0-7.3); Platelet Count 208 K/mm3 (140-440); Red Blood Count 4.49 M/mm3 (3.65-5.03); Red Cell Distribution Width 13.9 % (13.2-15.2)
[2019-06-24 04:56] LABS: Calcium 8.2 mg/dL (8.4-10.2)
[2019-06-24] MEDS: ZOSYN/NS 3.375GM/50ML 3.375 GM/50 ML BAG IV SCH ×3 (05:18→21:50)
--- NOTE | 2019-06-24 09:54 | Consultation ---
History of Present Illness - Reason for Consult acute renal failure, chronic renal failure - History of Present Illness 59 y/o male with likely CKD III (creat from 2017 of 1.7) in the setting of HTN and previous CVA with residual right sided weakness, presented to the ED s/p fall at intermediate facility. He is unsure how long he was on the ground , but per documentation he apparently was down for at least 24 hours. Nephrology was consulted for concern of SU in the setting of rhabdomyolysis. Past History Past Medical History: hypertension, stroke (right-sided residual deficits at baseline ambulates with cane), other (anxiety) Past Surgical History: No surgical history Social history: other (lives with a roommate) Family history: cancer (father prostate cancer) Medications and Allergies Allergies Allergy/AdvReac Type Severity Reaction Status Date / Time No Known Allergies Allergy Verified 06/23/19 15:58 Home Medications Medication Instructions Recorded Confirmed Last Taken Type ALPRAZolam [Xanax TAB] 1 mg PO BID #30 tablet 04/09/17 06/23/19 06/23/19 Rx Aspirin EC [Halfprin EC] 81 mg PO QDAY #30 tablet. 04/09/17 06/23/19 06/23/19 Rx AtorvaSTATin [Lipitor] 40 mg PO QHS #30 tablet 04/09/17 06/23/19 06/23/19 Rx Chlorthalidone [Thalitone] 25 mg PO QDAY #30 tablet 04/09/17 06/23/19 06/23/19 Rx Active Meds: Active Medications Acetaminophen (Tylenol) 650 mg PO Q4H PRN PRN Reason: Pain MILD(1-3)/Fever >100.5/MCDANIEL Alprazolam (Xanax) 1 mg PO BID PRN PRN Reason: Anxiety Aspirin (Halfprin Ec) 81 mg PO QDAY MARY Chlorthalidone (Thalitone) 25 mg PO QDAY MARY Docusate Sodium (Colace) 100 mg PO BID MARY Last Admin: 06/23/19 23:45 Dose: 100 mg Documented by: Heparin Sodium (Porcine) (Heparin) 5,000 unit SUB-Q Q12HR MARY Last Admin: 06/23/19 23:45 Dose: 5,000 unit Documented by: Sodium Chloride (Nacl 0.9% 1000 Ml) 1,000 mls @ 100 mls/hr IV DIRECT MARY Piperacillin Sod/Tazobactam Sod (Zosyn/Ns 3.375gm/50ml) 3.375 gm in 50 mls @ 100 mls/hr IV Q8HR [facility]; Protocol Last Admin: 06/24/19 05:18 Dose: 100 mls/hr Documented by: Ondansetron HCl (Zofran) 4 mg IV Q8H PRN PRN Reason: Nausea And Vomiting Sodium Chloride (Sodium Chloride Flush Syringe 10 Ml) 10 ml IV BID [facility] Last Admin: 06/23/19 23:48 Dose: 10 ml Documented by: Sodium Chloride (Sodium Chloride Flush Syringe 10 Ml) 10 ml IV PRN PRN PRN Reason: LINE FLUSH Review of Systems All systems: negative Constitutional: fatigue, weakness Exam - Vital Signs Vital signs: Vital Signs Temp Pulse Resp Pulse Ox 99.7 F H 126 H 24 100 06/23/19 15:58 06/23/19 15:58 06/23/19 15:58 06/23/19 15:58 - General Appearance General appearance: well-nourished, appears stated age, chronically ill EENT: ATNC, PERRL Neck: Present: neck supple, trachea midline Respiratory: Clear to Ascultation, Normal Exam Heart: regular, S1S2 Gastrointestinal: Present: normal, normoactive bowel sounds Integumentary: no rash, warm and dry Neurologic: alert and oriented x3, other (right sided weakness in UE/LE. ) Musculoskeletal: Present: deferred Psychiatric: mood/affect appropriate, cooperative Results - Lab Results 06/24/19 03:41 06/24/19 03:41 Most recent lab results Calcium 8.2 mg/dL (8.4-10.2) L 06/24/19 03:41 - Image Kidney/bladder ultrasound: pending Assessment and Plan - Patient Problems (1) Acute kidney injury superimposed on CKD Current Visit: Yes Status: Acute Plan to address problem: Likely pre-renal in etiology. Will add Urine electrolytes and will also order UPC for quantification of proteinuria noted in UA. CPK levels only mildly elevated at this time. Avoid nephrotoxins, maintain MAP >65mmHg (2) Hypertensive chronic kidney disease with stage 1 through stage 4 chronic kidney disease, or unspecified chronic kidney disease Current Visit: Yes Status: Acute Plan to address problem: Continue with current regimen and monitor closely. (3) Rhabdomyolysis Current Visit: Yes Status: Acute Plan to address problem: Suspect that this is a mild component to his SU given his mildly elevated CPK levels and overall stable renal function compared to labs noted in 2017.
[2019-06-24] MEDS: HALFPRIN EC PO SCH (10:52)
[2019-06-24] MEDS: COLACE PO SCH ×2 (10:52→21:51)
[2019-06-24] MEDS: HEPARIN SUB-Q SCH ×2 (10:52→21:51)
[2019-06-24] MEDS: SODIUM CHLORIDE FLUSH SYRINGE 10 ML IV SCH ×2 (10:52→21:51)
--- NOTE | 2019-06-24 11:10 | Progress Note ---
Assessment and Plan Assessment and plan: 59-year-old male with history of CVA with right-sided deficits, debility secondary to CVA, hypertension, and anxiety [facility]. Rhabdomyolysis -Likely secondary to dehydration -Continue supportive care -Receiving IVF -Nephrology consulted SU ?? superimposed CDK -Cr on admission 1.6 with GFR 45 -Baseline around 1.2 (2017) -Receiving IV fluids -Nephrology consulted -Avoid nephro toxic agents -Renal dose all meds Leukocytosis -WBC 12.5 -TMAX 99.7 -Cultures pending -On IV abx Lactic acidosis -Lactic Acid 3.40 on admission -on IV abx -On IVF -Continue to monitor Hypertension -Continue to monitor BP -Resume home antihypertensive meds to optimize BP History of CVA -Right-sided residual deficits -Ambulates with cane at baseline -PT/OT eval pending History of anxiety -Continue Xanax when necessary DVT PPX -on Heparin -SCD's History Interval history: Patient seen and examined medical records reviewed Admitted with history of fall, AK I, rhabdomyolysis Patient feels slightly better Hungry, asking for food Vital signs noted Hospitalist Physical - Constitutional Vitals: Temp Pulse Resp BP Pulse Ox 98.2 F 94 H 16 141/90 95 06/24/19 08:02 06/24/19 08:02 06/24/19 08:02 06/24/19 08:02 06/24/19 08:02 General appearance: Present: no acute distress, well-nourished, obese - EENT Eyes: Present: PERRL, EOM intact - Neck Neck: Present: supple, normal ROM - Respiratory Respiratory effort: normal Respiratory: bilateral: diminished, negative: rales, rhonchi, wheezing - Cardiovascular Rhythm: regular Heart Sounds: Present: S1 & S2 - Extremities Extremities: no ischemia Extremity abnormal: edema - Abdominal General gastrointestinal: soft, non-tender, non-distended, normal bowel sounds - Integumentary Integumentary: Present: clear, warm - Psychiatric Psychiatric: appropriate mood/affect, cooperative - Neurologic Neurologic: moves all extremities Results - Labs CBC & Chem 7: 06/24/19 03:41 06/24/19 03:41 Labs: Laboratory Last Values WBC 8.9 K/mm3 (4.5-11.0) 06/24/19 03:41 RBC 4.49 M/mm3 (3.65-5.03) 06/24/19 03:41 Hgb 14.8 gm/dl (11.8-15.2) 06/24/19 03:41 Hct 43.5 % (35.5-45.6) 06/24/19 03:41 MCV 97 fl (84-94) H 06/24/19 03:41 MCH 33 pg (28-32) H 06/24/19 03:41 MCHC 34 % (32-34) 06/24/19 03:41 RDW 13.9 % (13.2-15.2) 06/24/19 03:41 Plt Count 208 K/mm3 (140-440) 06/24/19 03:41 Lymph % (Auto) 13.7 % (13.4-35.0) 06/24/19 03:41 [place] % (Auto) 7.8 % (0.0-7.3) H 06/24/19 03:41 Eos % (Auto) 2.0 % (0.0-4.3) 06/24/19 03:41 Baso % (Auto) 0.5 % (0.0-1.8) 06/24/19 03:41 Lymph # 1.2 K/mm3 (1.2-5.4) 06/24/19 03:41 [place] # 0.7 K/mm3 (0.0-0.8) 06/24/19 03:41 Eos # 0.2 K/mm3 (0.0-0.4) 06/24/19 03:41 Baso # 0.0 K/mm3 (0.0-0.1) 06/24/19 03:41 Seg Neutrophils % 76.0 % (40.0-70.0) H 06/24/19 03:41 Seg Neutrophils # 6.8 K/mm3 (1.8-7.7) 06/24/19 03:41 PT 13.8 Sec. (12.2-14.9) 06/23/19 16:09 INR 1.09 (0.87-1.13) 06/23/19 16:09 VBG pH 7.439 (7.320-7.420) H 06/23/19 16:09 Sodium 142 mmol/L (137-145) 06/24/19 03:41 Potassium 3.8 mmol/L (3.6-5.0) 06/24/19 03:41 Chloride 104.9 mmol/L (98-107) 06/24/19 03:41 Carbon Dioxide 24 mmol/L (22-30) 06/24/19 03:41 17 mmol/L 06/24/19 03:41 BUN 21 mg/dL (9-20) H 06/24/19 03:41 1.6 mg/dL (0.8-1.5) H 06/24/19 03:41 Estimated GFR 54 ml/min 06/24/19 03:41 13 % 06/24/19 03:41 Glucose 163 mg/dL (75-100) H 06/24/19 03:41 Lactic Acid 3.40 mmol/L (0.7-2.0) H* 06/23/19 19:27 Calcium 8.2 mg/dL (8.4-10.2) L 06/24/19 03:41 0.90 mg/dL (0.1-1.2) 06/23/19 16:09 AST 55 units/L (5-40) H 06/23/19 16:09 ALT 45 units/L (7-56) 06/23/19 16:09 78 units/L (35-129) 06/23/19 16:09 2425 units/L (55-170) H 06/24/19 09:24 7.6 g/dL (6.3-8.2) 06/23/19 16:09 4.2 g/dL (3.9-5) 06/23/19 16:09 1.2 % 06/23/19 16:09 Yellow (Yellow) 06/23/19 18:51 Clear (Clear) 06/23/19 18:51 6.0 (5.0-7.0) 06/23/19 18:51 Ur Specific [place] 1.026 (1.003-1.030) 06/23/19 18:51 30 mg/dl mg/dL (Negative) 06/23/19 18:51 Neg mg/dL (Negative) 06/23/19 18:51 20 mg/dL (Negative) 06/23/19 18:51 Neg (Negative) 06/23/19 18:51 Neg (Negative) 06/23/19 18:51 Neg (Negative) 06/23/19 18:51 < 2.0 mg/dL (<2.0) 06/23/19 18:51 Ur Leukocyte Esterase Neg (Negative) 06/23/19 18:51 1.0 /HPF (0.0-6.0) 06/23/19 18:51 1.0 /HPF (0.0-6.0) 06/23/19 18:51 Few /HPF 06/23/19 18:51 Active Medications - Current Medications Current Medications: Generic Name Dose Route Start Last Admin Trade Name Freq PRN Reason Stop Dose Admin Acetaminophen 650 mg 06/23/19 20:24 Tylenol PO Q4H PRN Pain MILD(1-3)/Fever >100.5/MCADNIEL Alprazolam 1 mg 06/23/19 20:27 Xanax PO BID PRN Anxiety Aspirin 81 mg 06/24/19 10:00 06/24/19 10:52 Halfprin Ec PO 81 mg QDAY MARY Administration Chlorthalidone 25 mg 06/24/19 10:00 Thalitone PO QDAY MARY Docusate Sodium 100 mg 06/23/19 22:00 06/24/19 10:52 Colace PO 100 mg BID MARY Administration Heparin Sodium (Porcine) 5,000 unit 06/23/19 22:00 06/24/19 10:52 Heparin SUB-Q 5,000 unit Q12HR MARY Administration Sodium Chloride 1,000 mls @ 100 mls/hr 06/23/19 21:00 Nacl 0.9% 1000 Ml IV DIRECT MARY Piperacillin Sod/Tazobactam Sod 3.375 gm in 50 mls @ 100 mls/hr 06/23/19 22:00 06/24/19 05:18 Zosyn/Ns 3.375gm/50ml IV 100 mls/hr Q8HR MARY Administration Protocol Ondansetron HCl 4 mg 06/23/19 20:24 Zofran IV Q8H PRN Nausea And Vomiting Sodium Chloride 10 ml 06/23/19 22:00 06/24/19 10:52 Sodium Chloride Flush Syringe 10 Ml IV 10 ml BID MARY Administration Sodium Chloride 10 ml 06/23/19 20:24 Sodium Chloride Flush Syringe 10 Ml IV PRN PRN LINE FLUSH
[2019-06-24] MEDS: NACL 0.9% 1000 ML 1,000 ML IV SCH (12:29)
[2019-06-24] MEDS: THALITONE PO SCH (12:29)
[2019-06-24 14:33] LABS: Chloride, Urine 85.1 mmolL (110-250); Creatinine,Urine 213.7 mg/dL (0.1-20.0); Protein/Creatinine Ratio,Urine 0.14
--- NOTE | 2019-06-24 16:24 | Ultrasound Report ---
ULTRASOUND RENAL INDICATION / CLINICAL INFORMATION: Acute kidney injury. COMPARISON: None available. FINDINGS: RIGHT KIDNEY: Length = 9.1 cm. [normal > 9 cm] - Parenchymal Thickness = 1.2 cm. [normal > 1.5 cm] - Echogenicity: Increased - Hydronephrosis: None. - Cyst or mass: A 2.8 cm parapelvic cyst is noted in the superior right renal sinus. No mass. - Stones: None seen. LEFT KIDNEY: Length = 9.1 cm. [normal > 9 cm] - Parenchymal Thickness = on 0.2 cm. [normal > 1.5 cm] - Echogenicity: Increased - Hydronephrosis: None. - Cyst or mass: No significant abnormality. - Stones: There appear to be 2 calyceal stones in the mid to superior left kidney. URINARY BLADDER: No significant abnormality. FREE FLUID: None. ADDITIONAL FINDINGS: None. IMPRESSION: Chronic renal parenchymal disease. Right renal parapelvic cyst. Nonobstructing stones in the left kidney. Signer Name: Vernon Benitez Jr, MD Signed: 06/24/2019 4:20 PM Workstation Name: [id number]
--- NOTE | 2019-06-24 23:29 | Event Note ---
Date: 06/24/19 Preliminary blood cultures show gram + cocci in clusters in one bottle. Pt is on zosyn. ID consulted.
[2019-06-25] MEDS: NACL 0.9% 1000 ML 1,000 ML IV SCH (05:41)
[2019-06-25] MEDS: ZOSYN/NS 3.375GM/50ML 3.375 GM/50 ML BAG IV SCH ×2 (05:41→14:19)
[2019-06-25 07:46] LABS: Calcium 8.2 mg/dL (8.4-10.2)
[2019-06-25] MEDS: HEPARIN SUB-Q SCH ×2 (10:01→21:08)
[2019-06-25] MEDS: COLACE PO SCH ×2 (10:01→21:07)
[2019-06-25] MEDS: THALITONE PO SCH (10:01)
[2019-06-25] MEDS: SODIUM CHLORIDE FLUSH SYRINGE 10 ML IV SCH ×2 (10:01→21:08)
[2019-06-25] MEDS: HALFPRIN EC PO SCH (10:01)
--- NOTE | 2019-06-25 10:16 | Progress Note ---
Assessment and Plan - Patient Problems (1) Acute kidney injury superimposed on CKD Current Visit: Yes Status: Acute Plan to address problem: Likely pre-renal in etiology. Urine electrolytes and UPC for quantification of proteinuria reviewed. CPK levels only mildly elevated at this time and is decreasing. Avoid nephrotoxins, maintain MAP >65mmHg With his stable renal function and elevated blood pressures this am, will favor to wean off his standing IVF. He is tolerating oral intake. (2) Hypertensive chronic kidney disease with stage 1 through stage 4 chronic kidney disease, or unspecified chronic kidney disease Current Visit: Yes Status: Acute Plan to address problem: Continue with current regimen and monitor closely. Will favor to wean off his standing IVF at the present time. (3) Rhabdomyolysis Current Visit: Yes Status: Acute Plan to address problem: Suspect that this is a mild component to his SU given his mildly elevated CPK levels and overall stable renal function compared to labs noted in 2017. Subjective Date of service: 06/25/19 Interval history: No acute complaints this am. 1/2 bottles growing gram (+) cocci in clusters, pending ID evaluation, started on IV zosyn. Overall renal function is stable, remains on NS at 100 cc/hr. Objective - Vital Signs Vital signs: Vital Signs - 12hr 06/24/19 06/25/19 06/25/19 23:40 03:56 07:49 Temperature 98.2 F 98.2 F 98.5 F Pulse Rate 92 H 81 89 Pulse Rate [ Apical] Respiratory 17 19 18 Rate Blood Pressure 152/97 160/95 170/105 O2 Sat by Pulse 92 94 95 Oximetry 06/25/19 08:32 Temperature Pulse Rate Pulse Rate [ 104 H Apical] Respiratory 16 Rate Blood Pressure O2 Sat by Pulse 92 Oximetry - General Appearance General appearance: well-developed, well-nourished EENT: ATNC, PERRL Neck: no JVD, no thyromegaly Respiratory: Present: Clear to Ascultation Cardiology: regular, S1S2 Gastrointestinal: normal, normoactive bowel sounds Integumentary: warm and dry Neurologic: alert and oriented x3, other (right sided weakness (upper/lower extremity) ) Psychiatric: mood/affect appropriate, cooperative - Lab 06/24/19 03:41 06/25/19 06:53 Most recent lab results Calcium 8.2 mg/dL (8.4-10.2) L 06/25/19 06:53 Magnesium 1.90 mg/dL (1.7-2.3) 06/25/19 06:53 213.7 mg/dL (0.1-20.0) H 06/24/19 Unknown 110 mmol/L 06/24/19 Unknown 29 mg/dL (5-11.8) H 06/24/19 Unknown - Allied health notes Allied health notes reviewed: nursing Medications & Allergies - Medications Allergies/Adverse Reactions: Allergies No Known Allergies Allergy (Verified 06/23/19 15:58) Home Medications: Home Medications Medication Instructions Recorded Confirmed Last Taken Type ALPRAZolam [Xanax TAB] 1 mg PO BID #30 tablet 04/09/17 06/23/19 06/23/19 Rx Aspirin EC [Halfprin EC] 81 mg PO QDAY #30 tablet. 04/09/17 06/23/19 06/23/19 Rx AtorvaSTATin [Lipitor] 40 mg PO QHS #30 tablet 04/09/17 06/23/19 06/23/19 Rx Chlorthalidone [Thalitone] 25 mg PO QDAY #30 tablet 04/09/17 06/23/19 06/23/19 Rx Active Medications: Generic Name Dose Route Start Last Admin Trade Name Freq PRN Reason Stop Dose Admin Acetaminophen 650 mg 06/23/19 20:24 Tylenol PO Q4H PRN Pain MILD(1-3)/Fever >100.5/MCDANIEL Alprazolam 1 mg 06/23/19 20:27 06/25/19 10:01 Xanax PO 1 mg BID PRN Administration Anxiety Aspirin 81 mg 06/24/19 10:00 06/25/19 10:01 Halfprin Ec PO 81 mg QDAY MARY Administration Chlorthalidone 25 mg 06/24/19 10:00 06/25/19 10:01 Thalitone PO 25 mg QDAY MARY Administration Docusate Sodium 100 mg 06/23/19 22:00 06/25/19 10:01 Colace PO 100 mg BID MARY Administration Heparin Sodium (Porcine) 5,000 unit 06/23/19 22:00 06/25/19 10:01 Heparin SUB-Q 5,000 unit Q12HR MARY Administration Sodium Chloride 1,000 mls @ 100 mls/hr 06/23/19 21:00 06/25/19 05:41 Nacl 0.9% 1000 Ml IV 100 mls/hr DIRECT MARY Administration Piperacillin Sod/Tazobactam Sod 3.375 gm in 50 mls @ 100 mls/hr 06/24/19 22:00 06/25/19 05:41 Zosyn/Ns 3.375gm/50ml IV 100 mls/hr Q8HR MARY Administration Protocol Ondansetron HCl 4 mg 06/23/19 20:24 Zofran IV Q8H PRN Nausea And Vomiting Sodium Chloride 10 ml 06/23/19 22:00 06/25/19 10:01 Sodium Chloride Flush Syringe 10 Ml IV Not Given BID MARY Sodium Chloride 10 ml 06/23/19 20:24 Sodium Chloride Flush Syringe 10 Ml IV PRN PRN LINE FLUSH
--- NOTE | 2019-06-25 10:21 | Consultation ---
History of Present Illness - Reason for Consult Consult date: 06/25/19 - History of Present Illness 59 yo M PMHx CVA with secondary debility, HTN admitted to the hospital after being found on the floor, where he had fallen and was unable to get up due to weakness and fatigue. He noted he was on the floor for approximately 2 days prior to being found. He was unable to take anything by mouth while on the floor. He was noted to be covered in feces on admission. He was found to have an SU in the setting of rhabdomyolysis. Afebrile since admission with a leukocytosis of 12.5 which has since returned to normal. He is currently receiving Zosyn. Blood cultures from 06/23 have 1/4 GPC in clusters. Urine cultures from the same date are NGTD. Imaging personally reviewed: REnal USS: chronic renal parenchymal disease. Review of systems: Bold if positive; otherwise negative GENERAL: fever, chills, weight loss, fatigue, night sweats EYES: blurry vision, eye pain HENT: headache, hearing loss, sore throat, dysphagia, sinus pain CARDIO: chest pain, palpitations, orthopnea PULM: shortness of breath, wheezing, cough, sputum, hemoptysis GI: nausea, vomiting, diarrhea, abdominal pain, blood in stool : urinary frequency, urgency, dysuria, urethral discharge MSK: joint pain, back pain, swelling SKIN: rash, redness HEME: easy bruising, bleeding Past History Past Medical History: hypertension, stroke (right-sided residual deficits at baseline ambulates with cane), other (anxiety) Past Surgical History: No surgical history Social history: other (lives with a roommate) Family history: cancer (father prostate cancer) Medications and Allergies Allergies Allergy/AdvReac Type Severity Reaction Status Date / Time No Known Allergies Allergy Verified 06/23/19 15:58 Home Medications Medication Instructions Recorded Confirmed Last Taken Type ALPRAZolam [Xanax TAB] 1 mg PO BID #30 tablet 04/09/17 06/23/19 06/23/19 Rx Aspirin EC [Halfprin EC] 81 mg PO QDAY #30 tablet. 04/09/17 06/23/19 06/23/19 Rx AtorvaSTATin [Lipitor] 40 mg PO QHS #30 tablet 04/09/17 06/23/19 06/23/19 Rx Chlorthalidone [Thalitone] 25 mg PO QDAY #30 tablet 04/09/17 06/23/19 06/23/19 Rx Active Meds: Active Medications Acetaminophen (Tylenol) 650 mg PO Q4H PRN PRN Reason: Pain MILD(1-3)/Fever >100.5/MCDANIEL Alprazolam (Xanax) 1 mg PO BID PRN PRN Reason: Anxiety Last Admin: 06/25/19 10:01 Dose: 1 mg Documented by: Aspirin (Halfprin Ec) 81 mg PO QDAY [facility] Last Admin: 06/25/19 10:01 Dose: 81 mg Documented by: Chlorthalidone (Thalitone) 25 mg PO QDAY [facility] Last Admin: 06/25/19 10:01 Dose: 25 mg Documented by: Docusate Sodium (Colace) 100 mg PO BID [facility] Last Admin: 06/25/19 10:01 Dose: 100 mg Documented by: Heparin Sodium (Porcine) (Heparin) 5,000 unit SUB-Q Q12HR [facility] Last Admin: 06/25/19 10:01 Dose: 5,000 unit Documented by: Sodium Chloride (Nacl 0.9% 1000 Ml) 1,000 mls @ 100 mls/hr IV DIRECT [facility] Last Admin: 06/25/19 05:41 Dose: 100 mls/hr Documented by: Piperacillin Sod/Tazobactam Sod (Zosyn/Ns 3.375gm/50ml) 3.375 gm in 50 mls @ 100 mls/hr IV Q8HR [facility]; Protocol Last Admin: 06/25/19 05:41 Dose: 100 mls/hr Documented by: Ondansetron HCl (Zofran) 4 mg IV Q8H PRN PRN Reason: Nausea And Vomiting Sodium Chloride (Sodium Chloride Flush Syringe 10 Ml) 10 ml IV BID [facility] Last Admin: 06/25/19 10:01 Dose: Not Given Documented by: Sodium Chloride (Sodium Chloride Flush Syringe 10 Ml) 10 ml IV PRN PRN PRN Reason: LINE FLUSH Physical Examination - Physical Exam Narrative exam: General Normal appearance, well developed, no acute distress Eyes - PERRLA, EOM intact ENT - Moist mucous membranes, no lymphadenopathy Neck - No noticeable or palpable swelling, redness or rash around throat or on face Lymph Nodes - No lymphadenopathy Cardiovascular - RRR no m/r/g, no JVD, no carotid bruits Lungs - Clear to auscultation, no use of accessory muscles, no crackles or wheezes. Skin - No rashes, skin warm and dry, no erythematous areas Abdomen - Normal bowel sounds, abdomen soft and nontender Extremities - No edema, cyanosis or clubbing Musculoskeletal - 5/5 strength, normal range of motion, no swollen or erythema tous joints. Neurological Alert and oriented x 3, CN 2-12 grossly intact. - Constitutional Vitals: Vital Signs Temp Pulse Resp BP Pulse Ox 98.5 F 104 H 16 170/105 92 06/25/19 07:49 06/25/19 08:32 06/25/19 08:32 06/25/19 07:49 06/25/19 08:32 Temperature -Last 24 Hours Temperature 98.5 F Temperature 98.2 F Temperature 98.2 F Temperature 98.2 F Temperature 98.0 F Temperature 98.0 F Results - Labs CBC & Chem 7: 06/24/19 03:41 06/25/19 06:53 Labs: Abnormal lab results 06/24/19 06/24/19 06/25/19 Range/Units 09:24 Unknown 06:53 Glucose 135 H (75-100) mg/dL Calcium 8.2 L (8.4-10.2) mg/dL Total Creatine Kinase 2425 H 1769 H (55-170) units/L Urine Creatinine 213.7 H (0.1-20.0) mg/dL Urine Chloride 85.1 L (110-250) mmolL Urine Total Protein 29 H (5-11.8) mg/dL Assessment and Plan Cultures: BCx - 1/4 BCx in clusters Assessment: 59 yo M PMHx CVA with secondary debility, HTN admitted with rhabdomyolysis 1. GPC bacteremia - 1/4 positive. At this point likely contaminant. will follow cultures to ensure CoNS with finalization. Continue without Abx for now. 2. Rhabdomyolysis 3. HTN 4. CVA with debility Recs: - stop Zosyn - follow up cultures for finalization Thank you for the consult, we will continue to follow. Josseline Kaufman MD [facility] ([facility]) M: [phone] O: [phone] F: [phone]
--- NOTE | 2019-06-25 17:38 | Progress Note ---
Assessment and Plan Assessment and plan: 59-year-old male with history of CVA with right-sided deficits, debility secondary to CVA, hypertension, and anxiety [facility] after being found on floor by roommate. Severe rhabdomyolysis and acute kidney injury --Rhabdomyolysis Continue IV fluids, CK [id number], trending down/ Input output monitoring --SU ; vasomotor nephropathy Renal function significantly improved Avoid nephrotoxins --Leukocytosis Discontinue empiric antibiotics No Evidence of infection --Lactic acidosis No Evidence of infection DC empiric antibiotics --Hypertension Moderate control. Continue current antihypertensives When necessary medications , --History of CVA with residual deficits Physical therapy occupational to supportive care -- History of anxiety Continue Xanax when necessary --DVT PPX; Heparin Monitor closely and adjust management as needed possible discharge tomorrow if stable History Interval history: Patient seen and examined medical records reviewed Patient feels slightly better wound complaints Alert awake Oriented 3 vital signs stable Hospitalist Physical - Constitutional Vitals: Temp Pulse Resp BP Pulse Ox 98.5 F 104 H 16 170/105 92 06/25/19 07:49 06/25/19 08:32 06/25/19 08:32 06/25/19 07:49 06/25/19 08:32 General appearance: Present: no acute distress, well-nourished, obese - EENT Eyes: Present: PERRL, EOM intact - Neck Neck: Present: supple, normal ROM - Respiratory Respiratory effort: normal Respiratory: bilateral: diminished, negative: rales, rhonchi, wheezing - Cardiovascular Rhythm: regular Heart Sounds: Present: S1 & S2 - Extremities Extremities: no ischemia, No edema - Abdominal General gastrointestinal: soft, non-tender, non-distended, normal bowel sounds - Integumentary Integumentary: Present: clear, warm - Psychiatric Psychiatric: appropriate mood/affect, cooperative - Neurologic Neurologic: moves all extremities Results - Labs CBC & Chem 7: 06/24/19 03:41 06/25/19 06:53 Labs: Laboratory Last Values WBC 8.9 K/mm3 (4.5-11.0) 06/24/19 03:41 RBC 4.49 M/mm3 (3.65-5.03) 06/24/19 03:41 Hgb 14.8 gm/dl (11.8-15.2) 06/24/19 03:41 Hct 43.5 % (35.5-45.6) 06/24/19 03:41 MCV 97 fl (84-94) H 06/24/19 03:41 MCH 33 pg (28-32) H 06/24/19 03:41 MCHC 34 % (32-34) 06/24/19 03:41 RDW 13.9 % (13.2-15.2) 06/24/19 03:41 Plt Count 208 K/mm3 (140-440) 06/24/19 03:41 Lymph % (Auto) 13.7 % (13.4-35.0) 06/24/19 03:41 [place] % (Auto) 7.8 % (0.0-7.3) H 06/24/19 03:41 Eos % (Auto) 2.0 % (0.0-4.3) 06/24/19 03:41 Baso % (Auto) 0.5 % (0.0-1.8) 06/24/19 03:41 Lymph # 1.2 K/mm3 (1.2-5.4) 06/24/19 03:41 [place] # 0.7 K/mm3 (0.0-0.8) 06/24/19 03:41 Eos # 0.2 K/mm3 (0.0-0.4) 06/24/19 03:41 Baso # 0.0 K/mm3 (0.0-0.1) 06/24/19 03:41 Seg Neutrophils % 76.0 % (40.0-70.0) H 06/24/19 03:41 Seg Neutrophils # 6.8 K/mm3 (1.8-7.7) 06/24/19 03:41 PT 13.8 Sec. (12.2-14.9) 06/23/19 16:09 INR 1.09 (0.87-1.13) 06/23/19 16:09 VBG pH 7.439 (7.320-7.420) H 06/23/19 16:09 Sodium 139 mmol/L (137-145) 06/25/19 06:53 Potassium 4.0 mmol/L (3.6-5.0) 06/25/19 06:53 Chloride 102.3 mmol/L (98-107) 06/25/19 06:53 Carbon Dioxide 25 mmol/L (22-30) 06/25/19 06:53 16 mmol/L 06/25/19 06:53 BUN 15 mg/dL (9-20) 06/25/19 06:53 1.5 mg/dL (0.8-1.5) 06/25/19 06:53 Estimated GFR 58 ml/min 06/25/19 06:53 10 % 06/25/19 06:53 Glucose 135 mg/dL (75-100) H 06/25/19 06:53 Lactic Acid 3.40 mmol/L (0.7-2.0) H* 06/23/19 19:27 Calcium 8.2 mg/dL (8.4-10.2) L 06/25/19 06:53 Magnesium 1.90 mg/dL (1.7-2.3) 06/25/19 06:53 0.90 mg/dL (0.1-1.2) 06/23/19 16:09 AST 55 units/L (5-40) H 06/23/19 16:09 ALT 45 units/L (7-56) 06/23/19 16:09 78 units/L (35-129) 06/23/19 16:09 1769 units/L (55-170) H 06/25/19 06:53 7.6 g/dL (6.3-8.2) 06/23/19 16:09 4.2 g/dL (3.9-5) 06/23/19 16:09 1.2 % 06/23/19 16:09 Yellow (Yellow) 06/23/19 18:51 Clear (Clear) 06/23/19 18:51 6.0 (5.0-7.0) 06/23/19 18:51 Ur Specific [place] 1.026 (1.003-1.030) 06/23/19 18:51 30 mg/dl mg/dL (Negative) 06/23/19 18:51 Neg mg/dL (Negative) 06/23/19 18:51 20 mg/dL (Negative) 06/23/19 18:51 Neg (Negative) 06/23/19 18:51 Neg (Negative) 06/23/19 18:51 Neg (Negative) 06/23/19 18:51 < 2.0 mg/dL (<2.0) 06/23/19 18:51 Ur Leukocyte Esterase Neg (Negative) 06/23/19 18:51 1.0 /HPF (0.0-6.0) 06/23/19 18:51 1.0 /HPF (0.0-6.0) 06/23/19 18:51 Few /HPF 06/23/19 18:51 213.7 mg/dL (0.1-20.0) H 06/24/19 Unknown Protein/Creatinin Ratio 0.14 06/24/19 Unknown 110 mmol/L 06/24/19 Unknown 85.1 mmolL (110-250) L 06/24/19 Unknown 29 mg/dL (5-11.8) H 06/24/19 Unknown Active Medications - Current Medications Current Medications: Generic Name Dose Route Start Last Admin Trade Name Freq PRN Reason Stop Dose Admin Acetaminophen 650 mg 06/23/19 20:24 Tylenol PO Q4H PRN Pain MILD(1-3)/Fever >100.5/MCDANIEL Alprazolam 1 mg 06/23/19 20:27 06/25/19 10:01 Xanax PO 1 mg BID PRN Administration Anxiety Aspirin 81 mg 06/24/19 10:00 06/25/19 10:01 Halfprin Ec PO 81 mg QDAY MARY Administration Chlorthalidone 25 mg 06/24/19 10:00 06/25/19 10:01 Thalitone PO 25 mg QDAY MARY Administration Docusate Sodium 100 mg 06/23/19 22:00 06/25/19 10:01 Colace PO 100 mg BID MARY Administration Heparin Sodium (Porcine) 5,000 unit 06/23/19 22:00 06/25/19 10:01 Heparin SUB-Q 5,000 unit Q12HR MARY Administration Sodium Chloride 1,000 mls @ 100 mls/hr 06/23/19 21:00 06/25/19 05:41 Nacl 0.9% 1000 Ml IV 100 mls/hr DIRECT MARY Administration Sodium Chloride 1,000 mls @ 42 mls/hr 06/25/19 11:00 Nacl 0.9% 1000 Ml IV DIRECT MARY Ondansetron HCl 4 mg 06/23/19 20:24 Zofran IV Q8H PRN Nausea And Vomiting Sodium Chloride 10 ml 06/23/19 22:00 06/25/19 10:01 Sodium Chloride Flush Syringe 10 Ml IV Not Given BID MARY Sodium Chloride 10 ml 06/23/19 20:24 Sodium Chloride Flush Syringe 10 Ml IV PRN PRN LINE FLUSH
[2019-06-26] MEDS ORDERED: ATIVAN IV PRN (07:30)
[2019-06-26] MEDS: NACL 0.9% 1000 ML 1,000 ML IV SCH (08:49)
[2019-06-26] MEDS: SODIUM CHLORIDE FLUSH SYRINGE 10 ML IV SCH (09:55)
[2019-06-26] MEDS: HEPARIN SUB-Q SCH (09:55)
[2019-06-26] MEDS ORDERED: KEPPRA 500 MG in D5W 100 ML IV SCH ×2 (10:00→17:00)
[2019-06-26] MEDS: HALFPRIN EC PO SCH (10:21)
[2019-06-26] MEDS: THALITONE PO SCH (10:21)
[2019-06-26] MEDS: COLACE PO SCH ×2 (10:30→21:40)
--- NOTE | 2019-06-26 10:30 | Progress Note ---
Assessment and Plan Assessment and plan: 59-year-old male with history of CVA with right-sided deficits, debility secondary to CVA, hypertension, and anxiety [facility]. Severe rhabdomyolysis and acute kidney injury ,reports that patient had a seizure this morning --Witnessed seizure seizure precautions Ativan when necessary. Low-dose Keppra CT head without contrast, EEG Neurology consult Patient has no previous history of seizures --Rhabdomyolysis Continue IV fluids, CK [id number], trending down/ Input output monitoring --SU ; vasomotor nephropathy Renal function significantly improved Avoid nephrotoxins --Leukocytosis Discontinue empiric antibiotics No Evidence of infection --Lactic acidosis No Evidence of infection DC empiric antibiotics --Hypertension Moderate control. Continue current antihypertensives When necessary medications , --History of CVA with rt residual deficits Physical therapy occupational to supportive care -- History of anxiety Continue Xanax when necessary --DVT PPX; Heparin Monitor closely and adjust management as needed possible discharge tomorrow if stable History Interval history: Patient had an episode of seizure this morning witnessed by the nurse Patient has no past medical history of seizure disorder Time of my evaluation patient is alert and awake Responding appropriately Vital signs noted Hospitalist Physical - Constitutional Vitals: Temp Pulse Resp BP Pulse Ox 98.5 F 74 20 160/90 94 06/26/19 04:06 06/26/19 04:06 06/26/19 04:06 06/26/19 04:06 06/26/19 04:06 General appearance: Present: no acute distress, well-nourished, obese, other (bruise right side of the face/secondary to fall at home) - EENT Eyes: Present: PERRL, EOM intact - Neck Neck: Present: supple, normal ROM - Respiratory Respiratory effort: normal Respiratory: bilateral: diminished, negative: rales, rhonchi, wheezing - Cardiovascular Rhythm: regular Heart Sounds: Present: S1 & S2 - Extremities Extremities: no ischemia, No edema - Abdominal General gastrointestinal: soft, non-tender, non-distended, normal bowel sounds - Integumentary Integumentary: Present: clear, warm - Psychiatric Psychiatric: appropriate mood/affect, cooperative - Neurologic Neurologic: other (CVA with residual right-sided weakness) Results - Labs CBC & Chem 7: 06/24/19 03:41 06/25/19 06:53 Labs: Laboratory Last Values WBC 8.9 K/mm3 (4.5-11.0) 06/24/19 03:41 RBC 4.49 M/mm3 (3.65-5.03) 06/24/19 03:41 Hgb 14.8 gm/dl (11.8-15.2) 06/24/19 03:41 Hct 43.5 % (35.5-45.6) 06/24/19 03:41 MCV 97 fl (84-94) H 06/24/19 03:41 MCH 33 pg (28-32) H 06/24/19 03:41 MCHC 34 % (32-34) 06/24/19 03:41 RDW 13.9 % (13.2-15.2) 06/24/19 03:41 Plt Count 208 K/mm3 (140-440) 06/24/19 03:41 Lymph % (Auto) 13.7 % (13.4-35.0) 06/24/19 03:41 [place] % (Auto) 7.8 % (0.0-7.3) H 06/24/19 03:41 Eos % (Auto) 2.0 % (0.0-4.3) 06/24/19 03:41 Baso % (Auto) 0.5 % (0.0-1.8) 06/24/19 03:41 Lymph # 1.2 K/mm3 (1.2-5.4) 06/24/19 03:41 [place] # 0.7 K/mm3 (0.0-0.8) 06/24/19 03:41 Eos # 0.2 K/mm3 (0.0-0.4) 06/24/19 03:41 Baso # 0.0 K/mm3 (0.0-0.1) 06/24/19 03:41 Seg Neutrophils % 76.0 % (40.0-70.0) H 06/24/19 03:41 Seg Neutrophils # 6.8 K/mm3 (1.8-7.7) 06/24/19 03:41 PT 13.8 Sec. (12.2-14.9) 06/23/19 16:09 INR 1.09 (0.87-1.13) 06/23/19 16:09 VBG pH 7.439 (7.320-7.420) H 06/23/19 16:09 Sodium 139 mmol/L (137-145) 06/25/19 06:53 Potassium 4.0 mmol/L (3.6-5.0) 06/25/19 06:53 Chloride 102.3 mmol/L (98-107) 06/25/19 06:53 Carbon Dioxide 25 mmol/L (22-30) 06/25/19 06:53 16 mmol/L 06/25/19 06:53 BUN 15 mg/dL (9-20) 06/25/19 06:53 1.5 mg/dL (0.8-1.5) 06/25/19 06:53 Estimated GFR 58 ml/min 06/25/19 06:53 10 % 06/25/19 06:53 Glucose 135 mg/dL (75-100) H 06/25/19 06:53 POC Glucose 167 (70-105) H 06/26/19 07:24 Lactic Acid 3.40 mmol/L (0.7-2.0) H* 06/23/19 19:27 Calcium 8.2 mg/dL (8.4-10.2) L 06/25/19 06:53 Magnesium 1.90 mg/dL (1.7-2.3) 06/25/19 06:53 0.90 mg/dL (0.1-1.2) 06/23/19 16:09 AST 55 units/L (5-40) H 06/23/19 16:09 ALT 45 units/L (7-56) 06/23/19 16:09 78 units/L (35-129) 06/23/19 16:09 1769 units/L (55-170) H 06/25/19 06:53 7.6 g/dL (6.3-8.2) 06/23/19 16:09 4.2 g/dL (3.9-5) 06/23/19 16:09 1.2 % 06/23/19 16:09 Yellow (Yellow) 06/23/19 18:51 Clear (Clear) 06/23/19 18:51 6.0 (5.0-7.0) 06/23/19 18:51 Ur Specific [place] 1.026 (1.003-1.030) 06/23/19 18:51 30 mg/dl mg/dL (Negative) 06/23/19 18:51 Neg mg/dL (Negative) 06/23/19 18:51 20 mg/dL (Negative) 06/23/19 18:51 Neg (Negative) 06/23/19 18:51 Neg (Negative) 06/23/19 18:51 Neg (Negative) 06/23/19 18:51 < 2.0 mg/dL (<2.0) 06/23/19 18:51 Ur Leukocyte Esterase Neg (Negative) 06/23/19 18:51 1.0 /HPF (0.0-6.0) 06/23/19 18:51 1.0 /HPF (0.0-6.0) 06/23/19 18:51 Few /HPF 06/23/19 18:51 213.7 mg/dL (0.1-20.0) H 06/24/19 Unknown Protein/Creatinin Ratio 0.14 06/24/19 Unknown 110 mmol/L 06/24/19 Unknown 85.1 mmolL (110-250) L 06/24/19 Unknown 29 mg/dL (5-11.8) H 06/24/19 Unknown Active Medications - Current Medications Current Medications: Generic Name Dose Route Start Last Admin Trade Name Jaradq PRN Reason Stop Dose Admin Acetaminophen 650 mg 06/23/19 20:24 Tylenol PO Q4H PRN Pain MILD(1-3)/Fever >100.5/MCDANIEL Alprazolam 1 mg 06/23/19 20:27 06/25/19 10:01 Xanax PO 1 mg BID PRN Administration Anxiety Aspirin 81 mg 06/24/19 10:00 06/26/19 10:21 Halfprin Ec PO 81 mg QDAY MARY Administration Chlorthalidone 25 mg 06/24/19 10:00 06/26/19 10:21 Thalitone PO 25 mg QDAY MARY Administration Docusate Sodium 100 mg 06/23/19 22:00 06/25/19 21:07 Colace PO 100 mg BID MARY Administration Heparin Sodium (Porcine) 5,000 unit 06/23/19 22:00 06/26/19 09:55 Heparin SUB-Q 5,000 unit Q12HR MARY Administration Sodium Chloride 1,000 mls @ 42 mls/hr 06/25/19 11:00 06/26/19 08:49 Nacl 0.9% 1000 Ml IV 42 mls/hr DIRECT MARY Administration Levetiracetam 500 mg/ Dextrose 105 mls @ 400 mls/hr 06/26/19 10:00 06/26/19 10:20 IV 400 mls/hr Q12HR MARY Administration Lorazepam 2 mg 06/26/19 07:30 06/26/19 07:30 Ativan IV 2 mg Q1H PRN Administration Seizures Ondansetron HCl 4 mg 06/23/19 20:24 06/26/19 08:49 Zofran IV 4 mg Q8H PRN Administration Nausea And Vomiting Sodium Chloride 10 ml 06/23/19 22:00 06/26/19 09:55 Sodium Chloride Flush Syringe 10 Ml IV 10 ml BID MARY Administration Sodium Chloride 10 ml 06/23/19 20:24 Sodium Chloride Flush Syringe 10 Ml IV PRN PRN LINE FLUSH
--- NOTE | 2019-06-26 15:35 | Cat Scan Report ---
CT HEAD WITHOUT CONTRAST INDICATION : SEIZURE. TECHNIQUE: Axial imaging performed from the skull apex through the skull base without the use of con trast. All CT scans at this location are performed using CT dose reduction employed for BASILIO sagastume of automated exposure control. COMPARISON: 04/03/2017 FINDINGS: Parenchyma: No acute intracranial hemorrhage or parenchymal abnormality. Chronic bilateral finley ra diata lacunar infarcts are new compared to the last exam. No mass. Ventricles: Ventricles are normal in size and appear symmetric. Soft tissues: Soft tissues including the orbits appear normal. Bones: No acute osseous abnormality. Sinuses: Sinuses and mastoid air cells are clear. IMPRESSION: 1. No acute change. 2. Chronic lacunar infarcts of the bilateral finley radiata. Signer Name: Dariusz Rivera MD Signed: 06/26/2019 3:31 PM Workstation Name: [id number]
--- NOTE | 2019-06-26 16:13 | Progress Note ---
Assessment and Plan Cultures: BCx - 10/18 CoNS Assessment: 59 yo M PMHx CVA with secondary debility, HTN admitted with rhabdomyolysis 1. GPC bacteremia - 10/18 CoNS. This is a contaminant, would not treat. 2. Rhabdomyolysis 3. HTN 4. CVA with debility Recs: - recommend no antibiotics. Thank you for the consult, we will sign off. Please call if any new questions arise. Josseline Kaufman MD [facility] ([facility]) M: [phone] O: [phone] F: [phone] Subjective Date of service: 06/26/19 Interval history: Feels well, no acute complaints. Objective - Exam Narrative Exam: General Normal appearance, well developed, no acute distress Eyes - PERRLA, EOM intact ENT - Moist mucous membranes, no lymphadenopathy Neck - No noticeable or palpable swelling, redness or rash around throat or on face Lymph Nodes - No lymphadenopathy Cardiovascular - RRR no m/r/g, no JVD, no carotid bruits Lungs - Clear to auscultation, no use of accessory muscles, no crackles or wheezes. Skin - No rashes, skin warm and dry, no erythematous areas Abdomen - Normal bowel sounds, abdomen soft and nontender Extremities - No edema, cyanosis or clubbing Musculoskeletal - 5/5 strength, normal range of motion, no swollen or erythematous joints. Neurological Alert and oriented x 3, CN 2-12 grossly intact. - Constitutional Vitals: Vital Signs Temp Pulse Resp BP Pulse Ox 99.0 F 101 H 20 161/95 99 06/26/19 12:24 06/26/19 12:24 06/26/19 12:24 06/26/19 12:24 06/26/19 12:24 Temperature -Last 24 Hours Temperature 99.0 F Temperature 98.5 F Temperature 98.4 F Temperature 98.3 F Temperature 98.2 F - Labs CBC & Chem 7: 06/24/19 03:41 06/25/19 06:53 Labs: Abnormal lab results 06/26/19 06/26/19 Range/Units 07:24 09:18 POC Glucose 167 H (70-105) Total Creatine Kinase 986 H (55-170) units/L
--- NOTE | 2019-06-26 16:17 | Consultation ---
History of Present Illness Consult date: 07/03/19 Reason for Consult: Seizure Chief complaint: Seizure History of present illness: Patient is a 59-year-old man with a history of stroke with residual right-sided weakness, hypertension, anxiety. Patient was initially admitted when he was found down on the floor by his roommate. Patient does not recall if he had passed out or not, however he states that he was on the floor for at least 1 entire day as he was unable to get up on his own. Patient was sent to the ER by his roommate. During the course of admission, patient was found to have a KI, rhabdomyolysis, lactic acidosis, and leukocytosis. Patient was noted to have a seizure-like episode today, described by the nursing staff as a 1-2 minute episode of generalized convulsions, followed by another episode about 30 minutes later that lasted approximately 1 minute. Patient is unaware of any previous seizures in the past. Past History Past Medical History: hypertension, stroke (right-sided residual deficits at b aseline ambulates with cane), other (anxiety) Past Surgical History: No surgical history Social history: other (lives with a roommate) Family history: cancer (father prostate cancer) Medications and Allergies Allergies Allergy/AdvReac Type Severity Reaction Status Date / Time No Known Allergies Allergy Verified 06/23/19 15:58 Home Medications Medication Instructions Recorded Confirmed Last Taken Type ALPRAZolam [Xanax TAB] 1 mg PO BID #30 tablet 04/09/17 06/23/19 06/23/19 Rx Aspirin EC [Halfprin EC] 81 mg PO QDAY #30 tablet. 04/09/17 06/23/19 06/23/19 Rx AtorvaSTATin [Lipitor] 40 mg PO QHS #30 tablet 04/09/17 06/23/19 06/23/19 Rx Chlorthalidone [Thalitone] 25 mg PO QDAY #30 tablet 04/09/17 06/23/19 06/23/19 Rx Active Meds: Active Medications Acetaminophen (Tylenol) 650 mg PO Q4H PRN PRN Reason: Pain MILD(1-3)/Fever >100.5/MCDANIEL Alprazolam (Xanax) 1 mg PO BID PRN PRN Reason: Anxiety Last Admin: 06/25/19 10:01 Dose: 1 mg Documented by: Aspirin (Halfprin Ec) 81 mg PO QDAY MARY Last Admin: 06/26/19 10:21 Dose: 81 mg Documented by: Chlorthalidone (Thalitone) 25 mg PO QDAY [facility] Last Admin: 06/26/19 10:21 Dose: 25 mg Documented by: Docusate Sodium (Colace) 100 mg PO BID [facility] Last Admin: 06/26/19 10:30 Dose: Not Given Documented by: Heparin Sodium (Porcine) (Heparin) 5,000 unit SUB-Q Q12HR [facility] Last Admin: 06/26/19 09:55 Dose: 5,000 unit Documented by: Sodium Chloride (Nacl 0.9% 1000 Ml) 1,000 mls @ 42 mls/hr IV DIRECT [facility] Last Admin: 06/26/19 08:49 Dose: 42 mls/hr Documented by: Levetiracetam 500 mg/ Dextrose 105 mls @ 400 mls/hr IV Q12HR [facility] Last Admin: 06/26/19 10:20 Dose: 400 mls/hr Documented by: Lorazepam (Ativan) 2 mg IV Q1H PRN PRN Reason: Seizures Last Admin: 06/26/19 07:30 Dose: 2 mg Documented by: Ondansetron HCl (Zofran) 4 mg IV Q8H PRN PRN Reason: Nausea And Vomiting Last Admin: 06/26/19 08:49 Dose: 4 mg Documented by: Sodium Chloride (Sodium Chloride Flush Syringe 10 Ml) 10 ml IV BID [facility] Last Admin: 06/26/19 09:55 Dose: 10 ml Documented by: Sodium Chloride (Sodium Chloride Flush Syringe 10 Ml) 10 ml IV PRN PRN PRN Reason: LINE FLUSH Review of Systems All systems: negative Integumentary: wounds Neurological: convulsions Physical Examination - Vital Signs Vital Signs: Vital Signs Temp Pulse Resp Pulse Ox 99.7 F H 126 H 24 100 06/23/19 15:58 06/23/19 15:58 06/23/19 15:58 06/23/19 15:58 - Physical Exam Narrative exam: Patient is awake, alert, oriented 4, follows complex commands. Pupils are equal, round, reactive to light, visual [place] full, no significant facial weakness noted, bilaterally intact to light touch, tongue midline. Patient has baseline right upper and lower extremity weakness, right upper extremities strength is 1 out of 5, right lower extremity strength is 2 out of 5, left upper and lower extremity strength is 5 out of 5. Bilateral intact to light touch. Intact finger to nose on the left upper extremity. 3+ reflexes on the right upper and lower extremity, 2+ reflexes on the left upper and lower extremity. - Constitutional General appearance: comfortable - EENT EENT: Present: PERRL, mucous membranes moist, hearing intact, vision intact, other (noted to have wound on right side of forehead area and) - Respiratory Respiratory: Present: lungs clear, normal breath sounds - Cardiovascular Cardiovascular: Present: regular rate, normal S1, normal S2 Extremities: Present: no clubbing, cyanosis, other (noted to have wound on left lower extremity) - Gastrointestinal Gastrointestinal: Present: normoactive bowel sounds, soft, non-tender - Psychiatric Psychiatric: Present: mood/affect appropriate Results - Laboratory Findings CBC and BMP: 06/24/19 03:41 06/25/19 06:53 Abnormal Lab Findings: Abnormal Labs 06/23/19 06/23/19 06/23/19 16:09 16:09 16:09 WBC 12.5 H Hgb 15.5 H Hct 46.7 H MCV 98 H MCH Lymph % (Auto) 5.3 L [place] % (Auto) Lymph # 0.7 L Seg Neutrophils % 88.0 H Seg Neutrophils # 11.0 H VBG pH BUN 22 H Creatinine 1.6 H Glucose 168 H POC Glucose Lactic Acid 2.50 H* Calcium AST 55 H Total Creatine Kinase Urine Creatinine Urine Chloride Urine Total Protein 06/23/19 06/23/19 06/23/19 16:09 16:09 17:28 WBC Hgb Hct MCV MCH Lymph % (Auto) [place] % (Auto) Lymph # Seg Neutrophils % Seg Neutrophils # VBG pH 7.439 H BUN Creatinine Glucose POC Glucose Lactic Acid 3.40 H* Calcium AST Total Creatine Kinase 2215 H Urine Creatinine Urine Chloride Urine Total Protein 06/23/19 06/24/19 06/24/19 19:27 03:41 03:41 WBC Hgb Hct MCV 97 H MCH 33 H Lymph % (Auto) [place] % (Auto) 7.8 H Lymph # Seg Neutrophils % 76.0 H Seg Neutrophils # VBG pH BUN 21 H Creatinine 1.6 H Glucose 163 H POC Glucose Lactic Acid 3.40 H* Calcium 8.2 L AST Total Creatine Kinase Urine Creatinine Urine Chloride Urine Total Protein 06/24/19 06/24/19 06/25/19 09:24 Unknown 06:53 WBC Hgb Hct MCV MCH Lymph % (Auto) [place] % (Auto) Lymph # Seg Neutrophils % Seg Neutrophils # VBG pH BUN Creatinine Glucose 135 H POC Glucose Lactic Acid Calcium 8.2 L AST Total Creatine Kinase 2425 H 1769 H Urine Creatinine 213.7 H Urine Chloride 85.1 L Urine Total Protein 29 H 06/26/19 06/26/19 07:24 09:18 WBC Hgb Hct MCV MCH Lymph % (Auto) [place] % (Auto) Lymph # Seg Neutrophils % Seg Neutrophils # VBG pH BUN Creatinine Glucose POC Glucose 167 H Lactic Acid Calcium AST Total Creatine Kinase 986 H Urine Creatinine Urine Chloride Urine Total Protein Assessment and Plan Patient is a 59-year-old man with a history of stroke with residual right-sided weakness, hypertension, anxiety. 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 According the patient's clinical findings, it is likely that the patient is currently having seizures, which may be due to underlying history of stroke with current metabolic abnormalities. Plan: 1. Seizures: - CT head showed chronic subcortical lacunar infarcts. - Check EEG - Start patient on keppra 1000mg BID. - Will continue to monitor neurologic status - If patient has seizure lasting >2 minutes, recommend for patient to be given ativan 2mg IV stat. If seizure does not resolve within 5 minutes after first dose, can repeat ativan X1. Please call primary team and neurology stat if patient has a seizure. - Continue to correct metabolic abnormalities per primary team. - Will continue to follow patient. Thank you for allowing me to take part in this patient's care. Jr Piña MD Neurology
--- NOTE | 2019-06-26 18:29 | Electroencephalogram Report ---
Electroencephalogram EEG Date of exam: 06/26/19 History: Patient is a 59-year-old man with a history of stroke with residual right-sided weakness, hypertension, anxiety. 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 Description: DESCRIPTION OF THE PROCEDURE: Electrodes were applied using Paste technique in positions dictated by International 10-20 system of placement. In addition to EEG data EKG and eye movements were recorded. DESCRIPTION OF ACTIVITY: At the onset of this recording, the patient is lying supine. In the background we note a 6-7 Hz theta activity that has an amplitude ranging 20-30uV. Additional low voltage rhythmic delta activity occurs at the anterior head regions bilaterally. There are no asymmetries in amplitude or frequency between hemispheres. There is significant lead artifact noted during EEG. Intermittent photic stimulation was not performed. Hyperventilation was not performed. EEG Impression: 1) Generalized slowing. 2) No seizures or epileptiform discharges 3) Lead artifact noted during EEG recording. CLINICAL INTERPRETATION: This routine video EEG, performed is abnormal secondary to above findings and is consistent with bi-hemispheric dysfunction and encephalopathy. The above described finding of diffuse slowing is etiologically non-specific and similar findings have been reported in cases of toxic, metabolic, hypoxic ischemic, infectious, medication, sleep deprivation, dementia,post-ictal state, and other causes of diffuse and multifocal encephalopathy.
--- NOTE | 2019-06-26 18:33 | Event Note ---
Date: 06/26/19 Nurse's reports that patient had 2 episodes of coffee-ground emesis No hematemesis melena or rectal bleeding Check stool for occult blood, coffee-ground emesis for occult blood Monitor H&H, IV Protonix, GI consult, nothing by mouth from midnight for possible endoscopy Plan of care reviewed with the patient, his nurse and the family member
[2019-06-26] MEDS: KEPPRA 1,000 MG in D5W 100 ML IV SCH (21:43)
[2019-06-27] MEDS: HEPARIN SUB-Q SCH ×3 (00:43→23:44)
[2019-06-27] MEDS: SODIUM CHLORIDE FLUSH SYRINGE 10 ML IV SCH ×2 (00:43→10:25)
[2019-06-27 05:35] LABS: Basophils % (Auto) 0.6 % (0.0-1.8); Eosinophils # (Auto) 0.1 K/mm3 (0.0-0.4); Eosinophils % (Auto) 0.9 % (0.0-4.3); Hematocrit 41.3 % (35.5-45.6); Hemoglobin 14.1 gm/dl (11.8-15.2); Lymphocytes # (Auto) 1.3 K/mm3 (1.2-5.4); Lymphocytes % (Auto) 14.5 % (13.4-35.0); Mean Corpuscular HGB Conc 34 % (32-34); Mean Corpuscular Volume 97 fl (84-94); Monocytes # (Auto) 0.8 K/mm3 (0.0-0.8); Monocytes % (Auto) 9.6 % (0.0-7.3); Platelet Count 241 K/mm3 (140-440); Red Blood Count 4.26 M/mm3 (3.65-5.03); Red Cell Distribution Width 14.2 % (13.2-15.2)
[2019-06-27 05:51] LABS: BUN/Creatinine Ratio 11; Blood Urea Nitrogen 14 mg/dL (9-20); Calcium 8.9 mg/dL (8.4-10.2); Hemolysis Index 113
[2019-06-27] MEDS: COLACE PO SCH ×2 (10:23→23:43)
[2019-06-27] MEDS: THALITONE PO SCH (10:24)
[2019-06-27] MEDS: HALFPRIN EC PO SCH (10:24)
[2019-06-27] MEDS: KEPPRA 1,000 MG in D5W 100 ML IV SCH ×2 (10:28→23:43)
[2019-06-27] MEDS: NACL 0.9% 1000 ML 1,000 ML IV SCH (10:52)
--- NOTE | 2019-06-27 11:23 | Gastroenterology Consultation ---
<LLUVIA VALENZUELA - Last Filed: 06/27/19 11:39> History of Present Illness - Reason for Consult Consult date: 06/27/19 coffee-ground emesis Requesting physician: JEMMA STEWART - History of Present Illness Patient is a 59 y/o male with PMH of CVA with right-sided deficits, debility, HTN, and anxiety who was brought to ED for evaluation after being found of floor by roommate with c/o weakness and was admitted and currently being treated for new onset seizures, rhabomyolysis, and SU. GI has been consulted for coffee- ground emesis. This morning patient was resting in bed w/o acute distress. Reports dark colored emesis x 2 episodes yesterday. No hematemesis, melena, hematochezia, or active signs of bleeding this am. States N/V has now improved. Denies wt loss, abd pain, or LGI symptoms. No hx of PUD or previous GI bleeding. No prior EGD. On daily ASA. Past History Past Medical History: hypertension, stroke (right-sided residual deficits at baseline ambulates with cane), other (anxiety) Past Surgical History: No surgical history Social history: other (lives with a roommate) Family history: cancer (father prostate cancer) Medications and Allergies Allergies Allergy/AdvReac Type Severity Reaction Status Date / Time No Known Allergies Allergy Verified 06/23/19 15:58 Home Medications Medication Instructions Recorded Confirmed Last Taken Type ALPRAZolam [Xanax TAB] 1 mg PO BID #30 tablet 04/09/17 06/23/19 06/23/19 Rx Aspirin EC [Halfprin EC] 81 mg PO QDAY #30 tablet. 04/09/17 06/23/19 06/23/19 Rx AtorvaSTATin [Lipitor] 40 mg PO QHS #30 tablet 04/09/17 06/23/19 06/23/19 Rx Chlorthalidone [Thalitone] 25 mg PO QDAY #30 tablet 04/09/17 06/23/19 06/23/19 Rx Active Meds: Active Medications Acetaminophen (Tylenol) 650 mg PO Q4H PRN PRN Reason: Pain MILD(1-3)/Fever >100.5/MCDANIEL Alprazolam (Xanax) 1 mg PO BID PRN PRN Reason: Anxiety Last Admin: 06/25/19 10:01 Dose: 1 mg Documented by: Aspirin (Halfprin Ec) 81 mg PO QDAY [facility] Last Admin: 06/27/19 10:24 Dose: 81 mg Documented by: Chlorthalidone (Thalitone) 25 mg PO QDAY [facility] Last Admin: 06/27/19 10:24 Dose: 25 mg Documented by: Docusate Sodium (Colace) 100 mg PO BID [facility] Last Admin: 06/27/19 10:23 Dose: 100 mg Documented by: Heparin Sodium (Porcine) (Heparin) 5,000 unit SUB-Q Q12HR [facility] Last Admin: 06/27/19 10:29 Dose: Not Given Documented by: Sodium Chloride (Nacl 0.9% 1000 Ml) 1,000 mls @ 42 mls/hr IV DIRECT [facility] Last Admin: 06/27/19 10:52 Dose: 42 mls/hr Documented by: Levetiracetam 1,000 mg/ (Dextrose) 110 mls @ 440 mls/hr IV Q12HR [facility] Last Admin: 06/27/19 10:28 Dose: 440 mls/hr Documented by: Lorazepam (Ativan) 2 mg IV Q1H PRN PRN Reason: Seizures Last Admin: 06/26/19 07:30 Dose: 2 mg Documented by: Ondansetron HCl (Zofran) 4 mg IV Q8H PRN PRN Reason: Nausea And Vomiting Last Admin: 06/26/19 08:49 Dose: 4 mg Documented by: Sodium Chloride (Sodium Chloride Flush Syringe 10 Ml) 10 ml IV BID [facility] Last Admin: 06/27/19 10:25 Dose: 10 ml Documented by: Sodium Chloride (Sodium Chloride Flush Syringe 10 Ml) 10 ml IV PRN PRN PRN Reason: LINE FLUSH medications reviewed/updated as required Review of Systems - Review of Systems All systems: negative Gastrointestinal: coffee ground emesis Exam - Constitutional Vital Signs: Temp Pulse Resp BP Pulse Ox 97.8 F 68 18 149/85 96 06/27/19 05:05 06/27/19 05:05 06/27/19 05:05 06/27/19 05:05 06/27/19 05:05 General appearance: no acute distress - Respiratory Respiratory effort: normal - Cardiovascular Rhythm: regular - Gastrointestinal General gastrointestinal: Present: soft, non-tender, non-distended, normal bowel sounds Rectal Exam: other (light brown stool- manager part present during exam (Mya SAPP)) - Musculoskeletal Musculoskeletal: other (right sided weakness) - Neurologic Neurological: alert and oriented x3 - Labs CBC & Chem 7: 06/27/19 04:28 06/27/19 04:28 Lab Results: Laboratory Results - last 24 hr 06/27/19 06/27/19 04:28 04:28 WBC 8.6 RBC 4.26 Hgb 14.1 Hct 41.3 MCV 97 H MCH 33 H MCHC 34 RDW 14.2 Plt Count 241 Lymph % (Auto) 14.5 Mclean % (Auto) 9.6 H Eos % (Auto) 0.9 Baso % (Auto) 0.6 Lymph # 1.3 Mclean # 0.8 Eos # 0.1 Baso # 0.0 Seg Neutrophils % 74.4 H Seg Neutrophils # 6.4 Sodium 135 L Potassium 4.2 Chloride 96.8 L Carbon Dioxide 26 Anion Gap 16 BUN 14 Creatinine 1.3 Estimated GFR > 60 BUN/Creatinine Ratio 11 Glucose 146 H Calcium 8.9 Assessment and Plan 1.Coffee ground emesis -H/H WNL (14.1/41.3) -continue to monitor H/H and transfuse as needed -reports dark colored emesis yesterday- no hematemesis, melena, hematochezia, or active signs of bleeding this am. Rectal with light brown stool. Denies abd pain and states N/V now improved -HD stable -etiology unclear -no plan for scope at this time given no clinical evidence of significant GI bleeding- will consider EGD based on progress (would need neurology clearance) -start on PPI -okay to resume diet as tolerated -continue supportive care -will follow <FRANKY CARVALHO R - Last Filed: 06/27/19 12:22> Medications and Allergies Active Meds: Active Medications Acetaminophen (Tylenol) 650 mg PO Q4H PRN PRN Reason: Pain MILD(1-3)/Fever >100.5/MCDANIEL Alprazolam (Xanax) 1 mg PO BID PRN PRN Reason: Anxiety Last Admin: 06/25/19 10:01 Dose: 1 mg Documented by: Aspirin (Halfprin Ec) 81 mg PO QDAY [facility] Last Admin: 06/27/19 10:24 Dose: 81 mg Documented by: Chlorthalidone (Thalitone) 25 mg PO QDAY [facility] Last Admin: 06/27/19 10:24 Dose: 25 mg Documented by: Docusate Sodium (Colace) 100 mg PO BID [facility] Last Admin: 06/27/19 10:23 Dose: 100 mg Documented by: Heparin Sodium (Porcine) (Heparin) 5,000 unit SUB-Q Q12HR [facility] Last Admin: 06/27/19 10:29 Dose: Not Given Documented by: Sodium Chloride (Nacl 0.9% 1000 Ml) 1,000 mls @ 42 mls/hr IV DIRECT [facility] Last Admin: 06/27/19 10:52 Dose: 42 mls/hr Documented by: Levetiracetam 1,000 mg/ (Dextrose) 110 mls @ 440 mls/hr IV Q12HR [facility] Last Admin: 06/27/19 10:28 Dose: 440 mls/hr Documented by: Lorazepam (Ativan) 2 mg IV Q1H PRN PRN Reason: Seizures Last Admin: 06/26/19 07:30 Dose: 2 mg Documented by: Ondansetron HCl (Zofran) 4 mg IV Q8H PRN PRN Reason: Nausea And Vomiting Last Admin: 06/26/19 08:49 Dose: 4 mg Documented by: Pantoprazole Sodium (Protonix) 40 mg IV BID [facility] Sodium Chloride (Sodium Chloride Flush Syringe 10 Ml) 10 ml IV BID [facility] Last Admin: 06/27/19 10:25 Dose: 10 ml Documented by: Sodium Chloride (Sodium Chloride Flush Syringe 10 Ml) 10 ml IV PRN PRN PRN Reason: LINE FLUSH Exam - Constitutional Vital Signs: Temp Pulse Resp BP Pulse Ox 98.7 F 55 L 12 145/80 94 06/27/19 08:23 06/27/19 10:22 06/27/19 08:23 06/27/19 10:22 06/27/19 10:22 - Labs CBC & Chem 7: 06/27/19 04:28 06/27/19 04:28 Lab Results: Laboratory Results - last 24 hr 06/27/19 06/27/19 04:28 04:28 WBC 8.6 RBC 4.26 Hgb 14.1 Hct 41.3 MCV 97 H MCH 33 H MCHC 34 RDW 14.2 Plt Count 241 Lymph % (Auto) 14.5 Mclean % (Auto) 9.6 H Eos % (Auto) 0.9 Baso % (Auto) 0.6 Lymph # 1.3 Mclean # 0.8 Eos # 0.1 Baso # 0.0 Seg Neutrophils % 74.4 H Seg Neutrophils # 6.4 Sodium 135 L Potassium 4.2 Chloride 96.8 L Carbon Dioxide 26 Anion Gap 16 BUN 14 Creatinine 1.3 Estimated GFR > 60 BUN/Creatinine Ratio 11 Glucose 146 H Calcium 8.9 Assessment and Plan Pt seen and examined. Pt with CVA and admitted with rhabdomyolsis. Consulted for CGE. Pt has occ heartburn or reflux. No other GI symptoms at present. Has occ nausea. None at present. Plan as noted. - empiric PPI - if H/H stable, no plans for EGD at present given numerous comorbidities.
--- NOTE | 2019-06-27 15:15 | Progress Note ---
Assessment and Plan - Patient Problems (1) Acute kidney injury superimposed on CKD Current Visit: Yes Status: Acute Plan to address problem: Likely pre-renal in etiology. Urine electrolytes and UPC for quantification of proteinuria reviewed. CPK levels only mildly elevated at this time and is decreasing. Avoid nephrotoxins, maintain MAP >65mmHg With his stable renal function and elevated blood pressures this am, will favor to wean off his standing IVF. He is tolerating oral intake. (2) Hypertensive chronic kidney disease with stage 1 through stage 4 chronic kidney disease, or unspecified chronic kidney disease Current Visit: Yes Status: Acute Plan to address problem: Continue with current regimen and monitor closely. Will favor to wean off his standing IVF at the present time. (3) Rhabdomyolysis Current Visit: Yes Status: Acute Plan to address problem: Suspect that this is a mild component to his SU given his mildly elevated CPK levels and overall stable renal function compared to labs noted in 2017. Subjective Date of service: 06/27/19 Interval history: Had apparent episode of coffee ground emesis (x2) yesterday. Evaluated by GI physician with recommendations reviewed. H/H is stable. No active signs of GI bleed. Overall renal function remains stable. Objective - Vital Signs Vital signs: Vital Signs - 12hr 06/27/19 06/27/19 06/27/19 05:05 08:23 10:22 Temperature 97.8 F 98.7 F Pulse Rate 68 66 55 L Respiratory 18 12 Rate Blood Pressure 149/85 120/78 145/80 O2 Sat by Pulse 96 94 94 Oximetry 06/27/19 13:00 Temperature Pulse Rate Respiratory 18 Rate Blood Pressure O2 Sat by Pulse Oximetry - General Appearance General appearance: well-nourished, appears stated age EENT: ATNC, PERRL Neck: no JVD, no thyromegaly Respiratory: Present: Clear to Ascultation, Normal Exam Cardiology: regular, S1S2 Gastrointestinal: normal, normoactive bowel sounds Integumentary: no rash, cool/clammy Neurologic: alert and oriented x3, other (residual right sided weakness ) Musculoskeletal: other (-edema ) Psychiatric: mood/affect appropriate, cooperative - Lab 06/27/19 04:28 06/27/19 04:28 Most recent lab results Calcium 8.9 mg/dL (8.4-10.2) 06/27/19 04:28 Magnesium 1.90 mg/dL (1.7-2.3) 06/25/19 06:53 213.7 mg/dL (0.1-20.0) H 06/24/19 Unknown 110 mmol/L 06/24/19 Unknown 29 mg/dL (5-11.8) H 06/24/19 Unknown - Allied health notes Allied health notes reviewed: nursing Medications & Allergies - Medications Allergies/Adverse Reactions: Allergies No Known Allergies Allergy (Verified 06/23/19 15:58) Home Medications: Home Medications Medication Instructions Recorded Confirmed Last Taken Type ALPRAZolam [Xanax TAB] 1 mg PO BID #30 tablet 04/09/17 06/23/19 06/23/19 Rx Aspirin EC [Halfprin EC] 81 mg PO QDAY #30 tablet. 04/09/17 06/23/19 06/23/19 Rx AtorvaSTATin [Lipitor] 40 mg PO QHS #30 tablet 04/09/17 06/23/19 06/23/19 Rx Chlorthalidone [Thalitone] 25 mg PO QDAY #30 tablet 04/09/17 06/23/19 06/23/19 Rx Active Medications: Generic Name Dose Route Start Last Admin Trade Name Freq PRN Reason Stop Dose Admin Acetaminophen 650 mg 06/23/19 20:24 Tylenol PO Q4H PRN Pain MILD(1-3)/Fever >100.5/MCDANIEL Alprazolam 1 mg 06/23/19 20:27 06/25/19 10:01 Xanax PO 1 mg BID PRN Administration Anxiety Aspirin 81 mg 06/24/19 10:00 06/27/19 10:24 Halfprin Ec PO 81 mg QDAY [facility] Administration Chlorthalidone 25 mg 06/24/19 10:00 06/27/19 10:24 Thalitone PO 25 mg QDAY [facility] Administration Docusate Sodium 100 mg 06/23/19 22:00 06/27/19 10:23 Colace PO 100 mg BID [facility] Administration Heparin Sodium (Porcine) 5,000 unit 06/23/19 22:00 06/27/19 10:29 Heparin SUB-Q Not Given Q12HR [facility] Sodium Chloride 1,000 mls @ 42 mls/hr 06/25/19 11:00 06/27/19 10:52 Nacl 0.9% 1000 Ml IV 42 mls/hr DIRECT [facility] Administration Levetiracetam 1,000 mg/ 110 mls @ 440 mls/hr 06/26/19 22:00 06/27/19 10:28 Dextrose IV 440 mls/hr Q12HR [facility] Administration Lorazepam 2 mg 06/26/19 07:30 06/26/19 07:30 Ativan IV 2 mg Q1H PRN Administration Seizures Ondansetron HCl 4 mg 06/23/19 20:24 06/26/19 08:49 Zofran IV 4 mg Q8H PRN Administration Nausea And Vomiting Pantoprazole Sodium 40 mg 06/27/19 22:00 Protonix IV BID [facility] Sodium Chloride 10 ml 06/23/19 22:00 06/27/19 10:25 Sodium Chloride Flush Syringe 10 Ml IV 10 ml BID [facility] Administration Sodium Chloride 10 ml 06/23/19 20:24 Sodium Chloride Flush Syringe 10 Ml IV PRN PRN LINE FLUSH
--- NOTE | 2019-06-27 15:28 | Progress Note ---
Assessment and Plan Patient is a 59-year-old man with a history of stroke with residual right-sided weakness, hypertension, anxiety. 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 According the patient's clinical findings, it is likely that the patient has had seizures, which may be due to underlying history of stroke with current metabolic abnormalities. Plan: 1. Seizures: - CT head showed chronic subcortical lacunar infarcts. - EEG showed generalized slowing, no seizures or epileptiform activity. - Cont. patient on keppra 1000mg BID. - If patient has seizure lasting >2 minutes, recommend for patient to be given ativan 2mg IV stat. If seizure does not resolve within 5 minutes after first dose, can repeat ativan X1. Please call primary team and neurology stat if patient has a seizure. - Continue to correct metabolic abnormalities per primary team. - Discussed with patient regarding no driving until cleared by DMV/DPS, patient understood and accepted this. Further discussed seizures precautions with patient. - Will sign off, as I will not be covering neurology service over the weekend. Recommend for neurologist covering weekend to be consulted for further monitoring/management. Thank you for allowing me to take part in this patient's care. Jr Piña MD Neurology Subjective Date of service: 06/27/19 Principal diagnosis: Seizure Interval history: No acute events overnight. Objective - Exam Narrative Exam: Patient is awake, alert, oriented 4, follows complex commands. Pupils are equal, round, reactive to light, visual [place] full, no significant facial weakness noted, bilaterally intact to light touch, tongue midline. Patient has baseline right upper and lower extremity weakness, right upper extremities strength is 1 out of 5, right lower extremity strength is 2 out of 5, left upper and lower extremity strength is 5 out of 5. Bilateral intact to light touch. Intact finger to nose on the left upper extremity. 3+ reflexes on the right upper and lower extremity, 2+ reflexes on the left upper and lower extremity. Patient noted to have LLE wound, and wound on right forehead. - Vital Sign Vital Signs - 12hr 06/27/19 06/27/19 06/27/19 05:05 08:23 10:22 Temperature 97.8 F 98.7 F Pulse Rate 68 66 55 L Respiratory 18 12 Rate Blood Pressure 149/85 120/78 145/80 O2 Sat by Pulse 96 94 94 Oximetry 06/27/19 13:00 Temperature Pulse Rate Respiratory 18 Rate Blood Pressure O2 Sat by Pulse Oximetry - General Apperance Constitutional: comfortable - EENT EENT: PERRL, mucous membranes moist, hearing intact, vision intact - Respiratory Respiratory: lungs clear, normal breath sounds - Cardiovascular Cardiovascular: regular rate, normal S1, normal S2 Extremities: no clubbing, cyanosis, no inflammation - Gastrointestinal Gastrointestinal: normoactive bowel sounds, soft, non-tender - Psychiatric Psychiatric: mood/affect appropriate - Laboratory Findings CBC and BMP: 06/27/19 04:28 06/27/19 04:28 Abnormal Lab Findings: Abnormal Labs 06/23/19 06/23/19 06/23/19 16:09 16:09 16:09 WBC 12.5 H Hgb 15.5 H Hct 46.7 H MCV 98 H MCH Lymph % (Auto) 5.3 L [place] % (Auto) Lymph # 0.7 L Seg Neutrophils % 88.0 H Seg Neutrophils # 11.0 H VBG pH Sodium Chloride BUN 22 H Creatinine 1.6 H Glucose 168 H POC Glucose Lactic Acid 2.50 H* Calcium AST 55 H Total Creatine Kinase Urine Creatinine Urine Chloride Urine Total Protein 06/23/19 06/23/19 06/23/19 16:09 16:09 17:28 WBC Hgb Hct MCV MCH Lymph % (Auto) [place] % (Auto) Lymph # Seg Neutrophils % Seg Neutrophils # VBG pH 7.439 H Sodium Chloride BUN Creatinine Glucose POC Glucose Lactic Acid 3.40 H* Calcium AST Total Creatine Kinase 2215 H Urine Creatinine Urine Chloride Urine Total Protein 06/23/19 06/24/19 06/24/19 19:27 03:41 03:41 WBC Hgb Hct MCV 97 H MCH 33 H Lymph % (Auto) [place] % (Auto) 7.8 H Lymph # Seg Neutrophils % 76.0 H Seg Neutrophils # VBG pH Sodium Chloride BUN 21 H Creatinine 1.6 H Glucose 163 H POC Glucose Lactic Acid 3.40 H* Calcium 8.2 L AST Total Creatine Kinase Urine Creatinine Urine Chloride Urine Total Protein 06/24/19 06/24/19 06/25/19 09:24 Unknown 06:53 WBC Hgb Hct MCV MCH Lymph % (Auto) [place] % (Auto) Lymph # Seg Neutrophils % Seg Neutrophils # VBG pH Sodium Chloride BUN Creatinine Glucose 135 H POC Glucose Lactic Acid Calcium 8.2 L AST Total Creatine Kinase 2425 H 1769 H Urine Creatinine 213.7 H Urine Chloride 85.1 L Urine Total Protein 29 H 06/26/19 06/26/19 06/27/19 07:24 09:18 04:28 WBC Hgb Hct MCV 97 H MCH 33 H Lymph % (Auto) [place] % (Auto) 9.6 H Lymph # Seg Neutrophils % 74.4 H Seg Neutrophils # VBG pH Sodium Chloride BUN Creatinine Glucose POC Glucose 167 H Lactic Acid Calcium AST Total Creatine Kinase 986 H Urine Creatinine Urine Chloride Urine Total Protein 06/27/19 04:28 WBC Hgb Hct MCV MCH Lymph % (Auto) [place] % (Auto) Lymph # Seg Neutrophils % Seg Neutrophils # VBG pH Sodium 135 L Chloride 96.8 L BUN Creatinine Glucose 146 H POC Glucose Lactic Acid Calcium AST Total Creatine Kinase Urine Creatinine Urine Chloride Urine Total Protein
--- NOTE | 2019-06-27 16:41 | Progress Note ---
Assessment and Plan Assessment and plan: 59-year-old male with history of CVA with right-sided deficits, debility secondary to CVA, hypertension, and anxiety who [facility] after being found on floor by roommate. Severe rhabdomyolysis and acute kidney injury ,reports that patient had a seizure Evaluation by neurologist, on antiepileptic medications, seizure precautions Patient also had coffee-ground emesis, GI evaluated the patient today --Coffee-ground emesis; no new episodes No hematemesis melena or rectal bleeding H&H stable, GI evaluated, advised to start diet Conservative management, possible follow up as outpatient --Witnessed seizure seizure precautions Ativan when necessary. 1000 mg Keppra twice a day CT head without contrast old CVA, EEG findings reviewed Neurology following, cannot drive Patient has no previous history of seizures --Rhabdomyolysis; trending down Continue IV fluids, CK [id number] Input output monitoring --SU ; vasomotor nephropathy Renal function significantly improved Avoid nephrotoxins --Leukocytosis Discontinue empiric antibiotics No Evidence of infection --Lactic acidosis No Evidence of infection DC empiric antibiotics --Hypertension Moderate control. Continue current antihypertensives When necessary medications , --History of CVA with rt residual deficits Physical therapy occupational to supportive care -- History of anxiety Continue Xanax when necessary --DVT PPX; Heparin Monitor closely and adjust management as needed possible discharge tomorrow if stable History Interval history: Patient seen and examined medical records reviewed Patient had coffee-ground emesis yesterday, no new episodes today Alert awake oriented 3 Vital signs noted Hospitalist Physical - Constitutional Vitals: Temp Pulse Resp BP Pulse Ox 98.7 F 55 L 18 145/80 94 06/27/19 08:23 06/27/19 10:22 06/27/19 13:00 06/27/19 10:22 06/27/19 10:22 General appearance: Present: no acute distress, well-nourished, obese, other (bruise right side of the face/secondary to fall at home) - EENT Eyes: Present: PERRL, EOM intact - Neck Neck: Present: supple, normal ROM - Respiratory Respiratory effort: normal Respiratory: bilateral: diminished, negative: rales, rhonchi, wheezing - Cardiovascular Rhythm: regular Heart Sounds: Present: S1 & S2 - Extremities Extremities: no ischemia, No edema - Abdominal General gastrointestinal: soft, non-tender, non-distended, normal bowel sounds - Integumentary Integumentary: Present: clear, warm - Psychiatric Psychiatric: appropriate mood/affect, cooperative - Neurologic Neurologic: CNII-XII intact, moves all extremities Results - Labs CBC & Chem 7: 06/27/19 04:28 06/27/19 04:28 Labs: Laboratory Last Values WBC 8.6 K/mm3 (4.5-11.0) 06/27/19 04:28 RBC 4.26 M/mm3 (3.65-5.03) 06/27/19 04:28 Hgb 14.1 gm/dl (11.8-15.2) 06/27/19 04:28 Hct 41.3 % (35.5-45.6) 06/27/19 04:28 MCV 97 fl (84-94) H 06/27/19 04:28 MCH 33 pg (28-32) H 06/27/19 04:28 MCHC 34 % (32-34) 06/27/19 04:28 RDW 14.2 % (13.2-15.2) 06/27/19 04:28 Plt Count 241 K/mm3 (140-440) 06/27/19 04:28 Lymph % (Auto) 14.5 % (13.4-35.0) 06/27/19 04:28 [place] % (Auto) 9.6 % (0.0-7.3) H 06/27/19 04:28 Eos % (Auto) 0.9 % (0.0-4.3) 06/27/19 04:28 Baso % (Auto) 0.6 % (0.0-1.8) 06/27/19 04:28 Lymph # 1.3 K/mm3 (1.2-5.4) 06/27/19 04:28 [place] # 0.8 K/mm3 (0.0-0.8) 06/27/19 04:28 Eos # 0.1 K/mm3 (0.0-0.4) 06/27/19 04:28 Baso # 0.0 K/mm3 (0.0-0.1) 06/27/19 04:28 Seg Neutrophils % 74.4 % (40.0-70.0) H 06/27/19 04:28 Seg Neutrophils # 6.4 K/mm3 (1.8-7.7) 06/27/19 04:28 PT 13.8 Sec. (12.2-14.9) 06/23/19 16:09 INR 1.09 (0.87-1.13) 06/23/19 16:09 VBG pH 7.439 (7.320-7.420) H 06/23/19 16:09 Sodium 135 mmol/L (137-145) L 06/27/19 04:28 Potassium 4.2 mmol/L (3.6-5.0) 06/27/19 04:28 Chloride 96.8 mmol/L (98-107) L 06/27/19 04:28 Carbon Dioxide 26 mmol/L (22-30) 06/27/19 04:28 16 mmol/L 06/27/19 04:28 BUN 14 mg/dL (9-20) 06/27/19 04:28 1.3 mg/dL (0.8-1.5) 06/27/19 04:28 Estimated GFR > 60 ml/min 06/27/19 04:28 11 % 06/27/19 04:28 Glucose 146 mg/dL (75-100) H 06/27/19 04:28 POC Glucose 167 (70-105) H 06/26/19 07:24 Lactic Acid 3.40 mmol/L (0.7-2.0) H* 06/23/19 19:27 Calcium 8.9 mg/dL (8.4-10.2) 06/27/19 04:28 Magnesium 1.90 mg/dL (1.7-2.3) 06/25/19 06:53 0.90 mg/dL (0.1-1.2) 06/23/19 16:09 AST 55 units/L (5-40) H 06/23/19 16:09 ALT 45 units/L (7-56) 06/23/19 16:09 78 units/L (35-129) 06/23/19 16:09 986 units/L (55-170) H 06/26/19 09:18 7.6 g/dL (6.3-8.2) 06/23/19 16:09 4.2 g/dL (3.9-5) 06/23/19 16:09 1.2 % 06/23/19 16:09 Yellow (Yellow) 06/23/19 18:51 Clear (Clear) 06/23/19 18:51 6.0 (5.0-7.0) 06/23/19 18:51 Ur Specific [place] 1.026 (1.003-1.030) 06/23/19 18:51 30 mg/dl mg/dL (Negative) 06/23/19 18:51 Neg mg/dL (Negative) 06/23/19 18:51 20 mg/dL (Negative) 06/23/19 18:51 Neg (Negative) 06/23/19 18:51 Neg (Negative) 06/23/19 18:51 Neg (Negative) 06/23/19 18:51 < 2.0 mg/dL (<2.0) 06/23/19 18:51 Ur Leukocyte Esterase Neg (Negative) 06/23/19 18:51 1.0 /HPF (0.0-6.0) 06/23/19 18:51 1.0 /HPF (0.0-6.0) 06/23/19 18:51 Few /HPF 06/23/19 18:51 213.7 mg/dL (0.1-20.0) H 06/24/19 Unknown Protein/Creatinin Ratio 0.14 06/24/19 Unknown 110 mmol/L 06/24/19 Unknown 85.1 mmolL (110-250) L 06/24/19 Unknown 29 mg/dL (5-11.8) H 06/24/19 Unknown Active Medications - Current Medications Current Medications: Generic Name Dose Route Start Last Admin Trade Name Freq PRN Reason Stop Dose Admin Acetaminophen 650 mg 06/23/19 20:24 Tylenol PO Q4H PRN Pain MILD(1-3)/Fever >100.5/MCDANIEL Alprazolam 1 mg 06/23/19 20:27 06/25/19 10:01 Xanax PO 1 mg BID PRN Administration Anxiety Aspirin 81 mg 06/24/19 10:00 06/27/19 10:24 Halfprin Ec PO 81 mg QDAY MARY Administration Chlorthalidone 25 mg 06/24/19 10:00 06/27/19 10:24 Thalitone PO 25 mg QDAY MARY Administration Docusate Sodium 100 mg 06/23/19 22:00 06/27/19 10:23 Colace PO 100 mg BID MARY Administration Heparin Sodium (Porcine) 5,000 unit 06/23/19 22:00 06/27/19 10:29 Heparin SUB-Q Not Given Q12HR MARY Sodium Chloride 1,000 mls @ 42 mls/hr 06/25/19 11:00 06/27/19 10:52 Nacl 0.9% 1000 Ml IV 42 mls/hr DIRECT MARY Administration Levetiracetam 1,000 mg/ 110 mls @ 440 mls/hr 06/26/19 22:00 06/27/19 10:28 Dextrose IV 440 mls/hr Q12HR MARY Administration Lorazepam 2 mg 06/26/19 07:30 06/26/19 07:30 Ativan IV 2 mg Q1H PRN Administration Seizures Ondansetron HCl 4 mg 06/23/19 20:24 06/26/19 08:49 Zofran IV 4 mg Q8H PRN Administration Nausea And Vomiting Pantoprazole Sodium 40 mg 06/27/19 22:00 Protonix IV BID MARY Sodium Chloride 10 ml 06/23/19 22:00 06/27/19 10:25 Sodium Chloride Flush Syringe 10 Ml IV 10 ml BID MARY Administration Sodium Chloride 10 ml 06/23/19 20:24 Sodium Chloride Flush Syringe 10 Ml IV PRN PRN LINE FLUSH
[2019-06-27] MEDS: PROTONIX IV SCH (23:44)
[2019-06-28] MEDS: SODIUM CHLORIDE FLUSH SYRINGE 10 ML IV SCH ×2 (01:29→10:33)
--- NOTE | 2019-06-28 09:43 | Progress Note ---
Assessment and Plan Assessment and plan: 59-year-old male with history of CVA with right-sided deficits, debility secondary to CVA, hypertension, and anxiety who [facility] after being found on floor by roommate. Severe rhabdomyolysis and acute kidney injury ,reports that patient had a seizure Evaluation by neurologist, on antiepileptic medications, seizure precautions Patient also had coffee-ground emesis, GI evaluated the patient today --Coffee-ground emesis; no new episodes No hematemesis melena or rectal bleeding H&H stable, GI evaluated, advised to start diet Conservative management, possible follow up as outpatient --Witnessed seizure seizure precautions Ativan when necessary. 1000 mg Keppra twice a day CT head without contrast old CVA, EEG findings reviewed Neurology following, cannot drive Patient has no previous history of seizures --Rhabdomyolysis; trending down Continue IV fluids, CK [id number] Input output monitoring --SU ; vasomotor nephropathy Renal function significantly improved Avoid nephrotoxins --Leukocytosis Discontinue empiric antibiotics No Evidence of infection --Lactic acidosis No Evidence of infection DC empiric antibiotics --Hypertension Moderate control. Continue current antihypertensives When necessary medications , --History of CVA with rt residual deficits Physical therapy occupational to supportive care -- History of anxiety Continue Xanax when necessary --DVT PPX; Heparin Monitor closely and adjust management as needed possible discharge tomorrow if stable Hospitalist Physical - Constitutional Vitals: Temp Pulse Resp BP Pulse Ox 99.0 F 71 16 177/104 95 06/28/19 08:06 06/28/19 08:06 06/28/19 08:06 06/28/19 08:06 06/28/19 08:06 General appearance: Present: no acute distress, well-nourished, obese, other (bruise right side of the face/secondary to fall at home) Results - Labs CBC & Chem 7: 06/27/19 04:28 06/27/19 04:28 Labs: Laboratory Last Values WBC 8.6 K/mm3 (4.5-11.0) 06/27/19 04:28 RBC 4.26 M/mm3 (3.65-5.03) 06/27/19 04:28 Hgb 14.1 gm/dl (11.8-15.2) 06/27/19 04:28 Hct 41.3 % (35.5-45.6) 06/27/19 04:28 MCV 97 fl (84-94) H 06/27/19 04:28 MCH 33 pg (28-32) H 06/27/19 04:28 MCHC 34 % (32-34) 06/27/19 04:28 RDW 14.2 % (13.2-15.2) 06/27/19 04:28 Plt Count 241 K/mm3 (140-440) 06/27/19 04:28 Lymph % (Auto) 14.5 % (13.4-35.0) 06/27/19 04:28 [place] % (Auto) 9.6 % (0.0-7.3) H 06/27/19 04:28 Eos % (Auto) 0.9 % (0.0-4.3) 06/27/19 04:28 Baso % (Auto) 0.6 % (0.0-1.8) 06/27/19 04:28 Lymph # 1.3 K/mm3 (1.2-5.4) 06/27/19 04:28 [place] # 0.8 K/mm3 (0.0-0.8) 06/27/19 04:28 Eos # 0.1 K/mm3 (0.0-0.4) 06/27/19 04:28 Baso # 0.0 K/mm3 (0.0-0.1) 06/27/19 04:28 Seg Neutrophils % 74.4 % (40.0-70.0) H 06/27/19 04:28 Seg Neutrophils # 6.4 K/mm3 (1.8-7.7) 06/27/19 04:28 PT 13.8 Sec. (12.2-14.9) 06/23/19 16:09 INR 1.09 (0.87-1.13) 06/23/19 16:09 VBG pH 7.439 (7.320-7.420) H 06/23/19 16:09 Sodium 135 mmol/L (137-145) L 06/27/19 04:28 Potassium 4.2 mmol/L (3.6-5.0) 06/27/19 04:28 Chloride 96.8 mmol/L (98-107) L 06/27/19 04:28 Carbon Dioxide 26 mmol/L (22-30) 06/27/19 04:28 16 mmol/L 06/27/19 04:28 BUN 14 mg/dL (9-20) 06/27/19 04:28 1.3 mg/dL (0.8-1.5) 06/27/19 04:28 Estimated GFR > 60 ml/min 06/27/19 04:28 11 % 06/27/19 04:28 Glucose 146 mg/dL (75-100) H 06/27/19 04:28 POC Glucose 167 (70-105) H 06/26/19 07:24 Lactic Acid 3.40 mmol/L (0.7-2.0) H* 06/23/19 19:27 Calcium 8.9 mg/dL (8.4-10.2) 06/27/19 04:28 Magnesium 1.90 mg/dL (1.7-2.3) 06/25/19 06:53 0.90 mg/dL (0.1-1.2) 06/23/19 16:09 AST 55 units/L (5-40) H 06/23/19 16:09 ALT 45 units/L (7-56) 06/23/19 16:09 78 units/L (35-129) 06/23/19 16:09 986 units/L (55-170) H 06/26/19 09:18 7.6 g/dL (6.3-8.2) 06/23/19 16:09 4.2 g/dL (3.9-5) 06/23/19 16:09 1.2 % 06/23/19 16:09 Yellow (Yellow) 06/23/19 18:51 Clear (Clear) 06/23/19 18:51 6.0 (5.0-7.0) 06/23/19 18:51 Ur Specific [place] 1.026 (1.003-1.030) 06/23/19 18:51 30 mg/dl mg/dL (Negative) 06/23/19 18:51 Neg mg/dL (Negative) 06/23/19 18:51 20 mg/dL (Negative) 06/23/19 18:51 Neg (Negative) 06/23/19 18:51 Neg (Negative) 06/23/19 18:51 Neg (Negative) 06/23/19 18:51 < 2.0 mg/dL (<2.0) 06/23/19 18:51 Ur Leukocyte Esterase Neg (Negative) 06/23/19 18:51 1.0 /HPF (0.0-6.0) 06/23/19 18:51 1.0 /HPF (0.0-6.0) 06/23/19 18:51 Few /HPF 06/23/19 18:51 213.7 mg/dL (0.1-20.0) H 06/24/19 Unknown Protein/Creatinin Ratio 0.14 06/24/19 Unknown 110 mmol/L 06/24/19 Unknown 85.1 mmolL (110-250) L 06/24/19 Unknown 29 mg/dL (5-11.8) H 06/24/19 Unknown Active Medications - Current Medications Current Medications: Generic Name Dose Route Start Last Admin Trade Name Freq PRN Reason Stop Dose Admin Acetaminophen 650 mg 06/23/19 20:24 Tylenol PO Q4H PRN Pain MILD(1-3)/Fever >100.5/MCDANIEL Alprazolam 1 mg 06/23/19 20:27 06/25/19 10:01 Xanax PO 1 mg BID PRN Administration Anxiety Aspirin 81 mg 06/24/19 10:00 06/27/19 10:24 Halfprin Ec PO 81 mg QDAY MARY Administration Chlorthalidone 25 mg 06/24/19 10:00 06/27/19 10:24 Thalitone PO 25 mg QDAY MARY Administration Docusate Sodium 100 mg 06/23/19 22:00 06/27/19 23:43 Colace PO 100 mg BID MRAY Administration Heparin Sodium (Porcine) 5,000 unit 06/23/19 22:00 06/27/19 23:44 Heparin SUB-Q 5,000 unit Q12HR MARY Administration Hydralazine HCl 25 mg 06/28/19 14:00 Apresoline PO Q8HR MARY Sodium Chloride 1,000 mls @ 42 mls/hr 06/25/19 11:00 06/27/19 10:52 Nacl 0.9% 1000 Ml IV 42 mls/hr DIRECT MARY Administration Levetiracetam 1,000 mg/ 110 mls @ 440 mls/hr 06/26/19 22:00 06/27/19 23:43 Dextrose IV 440 mls/hr Q12HR MARY Administration Lorazepam 2 mg 06/26/19 07:30 06/26/19 07:30 Ativan IV 2 mg Q1H PRN Administration Seizures Ondansetron HCl 4 mg 06/23/19 20:24 06/26/19 08:49 Zofran IV 4 mg Q8H PRN Administration Nausea And Vomiting Pantoprazole Sodium 40 mg 06/27/19 22:00 06/27/19 23:44 Protonix IV 40 mg BID MARY Administration Sodium Chloride 10 ml 06/23/19 22:00 06/28/19 01:29 Sodium Chloride Flush Syringe 10 Ml IV 10 ml BID MARY Administration Sodium Chloride 10 ml 06/23/19 20:24 Sodium Chloride Flush Syringe 10 Ml IV PRN PRN LINE FLUSH
[2019-06-28] MEDS: COLACE PO SCH (09:58)
[2019-06-28] MEDS: KEPPRA 1,000 MG in D5W 100 ML IV SCH (09:59)
[2019-06-28] MEDS: HALFPRIN EC PO SCH (09:59)
[2019-06-28] MEDS: HEPARIN SUB-Q SCH (10:00)
[2019-06-28] MEDS: PROTONIX IV SCH (10:00)
[2019-06-28] MEDS: THALITONE PO SCH (10:13)
--- NOTE | 2019-06-28 12:47 | Progress Note ---
Assessment and Plan - Patient Problems (1) Acute kidney injury superimposed on CKD Current Visit: Yes Status: Acute Plan to address problem: Likely pre-renal in etiology. Urine electrolytes and UPC for quantification of proteinuria reviewed. CPK levels only mildly elevated at this time and is decreasing. Avoid nephrotoxins, maintain MAP >65mmHg Overall stable renal function. From renal standpoint patient is stable for DC. (2) Hypertensive chronic kidney disease with stage 1 through stage 4 chronic kidney disease, or unspecified chronic kidney disease Current Visit: Yes Status: Acute Plan to address problem: Continue with current regimen and monitor closely. (3) Rhabdomyolysis Current Visit: Yes Status: Acute Plan to address problem: Suspect that this is a mild component to his SU given his mildly elevated CPK levels and overall stable renal function compared to labs noted in 2017. Subjective Date of service: 06/28/19 Principal diagnosis: Seizure Interval history: No acute issues overnight. Objective - Vital Signs Vital signs: Vital Signs - 12hr 06/28/19 06/28/19 06/28/19 05:16 05:17 08:06 Temperature 99.2 F 99.0 F Pulse Rate 75 71 Respiratory 20 16 Rate Blood Pressure 159/90 177/104 O2 Sat by Pulse 98 95 Oximetry - General Appearance General appearance: well-developed, well-nourished EENT: ATNC, PERRL Neck: no JVD, no thyromegaly Respiratory: Present: Clear to Ascultation Cardiology: regular, normal heart rate, S1S2 Gastrointestinal: normal, normoactive bowel sounds Integumentary: no rash, warm and dry Neurologic: no asterixis, alert and oriented x3 Psychiatric: mood/affect appropriate, cooperative - Lab 06/27/19 04:28 06/27/19 04:28 Most recent lab results Calcium 8.9 mg/dL (8.4-10.2) 06/27/19 04:28 Magnesium 1.90 mg/dL (1.7-2.3) 06/25/19 06:53 213.7 mg/dL (0.1-20.0) H 06/24/19 Unknown 110 mmol/L 06/24/19 Unknown 29 mg/dL (5-11.8) H 06/24/19 Unknown - Allied health notes Allied health notes reviewed: nursing Medications & Allergies - Medications Allergies/Adverse Reactions: Allergies No Known Allergies Allergy (Verified 06/23/19 15:58) Home Medications: Home Medications Medication Instructions Recorded Confirmed Last Taken Type ALPRAZolam [Xanax TAB] 1 mg PO BID #30 tablet 04/09/17 06/23/19 06/23/19 Rx Aspirin EC [Halfprin EC] 81 mg PO QDAY #30 tablet. 04/09/17 06/23/19 06/23/19 Rx AtorvaSTATin [Lipitor] 40 mg PO QHS #30 tablet 04/09/17 06/23/19 06/23/19 Rx Chlorthalidone [Thalitone] 25 mg PO QDAY #30 tablet 04/09/17 06/23/19 06/23/19 Rx Active Medications: Generic Name Dose Route Start Last Admin Trade Name Freq PRN Reason Stop Dose Admin Acetaminophen 650 mg 06/23/19 20:24 Tylenol PO Q4H PRN Pain MILD(1-3)/Fever >100.5/MCDANIEL Alprazolam 1 mg 06/23/19 20:27 06/25/19 10:01 Xanax PO 1 mg BID PRN Administration Anxiety Aspirin 81 mg 06/24/19 10:00 06/28/19 09:59 Halfprin Ec PO Not Given QDAY MARY Chlorthalidone 25 mg 06/24/19 10:00 06/28/19 10:13 Thalitone PO Not Given QDAY MARY Docusate Sodium 100 mg 06/23/19 22:00 06/28/19 09:58 Colace PO Not Given BID MARY Heparin Sodium (Porcine) 5,000 unit 06/23/19 22:00 06/28/19 10:00 Heparin SUB-Q 5,000 unit Q12HR MARY Administration Hydralazine HCl 25 mg 06/28/19 14:00 Apresoline PO Q8HR MARY Sodium Chloride 1,000 mls @ 42 mls/hr 06/25/19 11:00 06/27/19 10:52 Nacl 0.9% 1000 Ml IV 42 mls/hr DIRECT MARY Administration Levetiracetam 1,000 mg/ 110 mls @ 440 mls/hr 06/26/19 22:00 06/28/19 09:59 Dextrose IV 440 mls/hr Q12HR MARY Administration Lorazepam 2 mg 06/26/19 07:30 06/26/19 07:30 Ativan IV 2 mg Q1H PRN Administration Seizures Ondansetron HCl 4 mg 06/23/19 20:24 06/26/19 08:49 Zofran IV 4 mg Q8H PRN Administration Nausea And Vomiting Pantoprazole Sodium 40 mg 06/27/19 22:00 06/28/19 10:00 Protonix IV 40 mg BID MARY Administration Sodium Chloride 10 ml 06/23/19 22:00 06/28/19 10:33 Sodium Chloride Flush Syringe 10 Ml IV 10 ml BID MARY Administration Sodium Chloride 10 ml 06/23/19 20:24 Sodium Chloride Flush Syringe 10 Ml IV PRN PRN LINE FLUSH
--- NOTE | 2019-06-28 12:53 | Discharge Summary ---
Providers - Providers Date of Admission: 06/23/19 20:24 Date of discharge: 06/28/19 Attending physician: JEMMA STEWART 06/23/19 20:24 Consult to Physician [CONS] Routine Comment: Consulting Provider: VILLA CASTLE Physician Instructions: Reason For Exam: su and rhabdo, ?/ckd 06/23/19 22:24 Consult to Wound/ET Nurse [CONS] Routine Reason For Exam: wound eval Occupational Therapy Evaluate and Treat [CONS] Routine Comment: Reason For Exam: debility Physical Therapy Evaluation and Treat [CONS] Routine Comment: Reason For Exam: debility 06/24/19 07:30 Speech Therapy Evaluation and Treat [CONS] Routine Reason For Exam: CVA 06/24/19 23:26 Consult to Physician [CONS] Routine Comment: Consulting Provider: BRYAN LINARES Physician Instructions: Reason For Exam: gram + cocci in cluster, rhabdo 06/26/19 09:45 Consult to Physician [CONS] Routine Comment: Consulting Provider: ANGEL RIOS Physician Instructions: Reason For Exam: witnessed seizure episode this morning 06/26/19 18:26 Consult to Physician [CONS] Routine Comment: Consulting Provider: JESSICA MOFFETT Physician Instructions: Reason For Exam: coffee ground emesis [facility] Condition: Stable Hospital course: 59-year-old male with history of CVA with right-sided deficits, debility secondary to CVA, hypertension, and anxiety who [facility] after being found on floor by roommate. Severe rhabdomyolysis and acute kidney injury ,reports that patient had a seizure Evaluation by neurologist, on antiepileptic medications, seizure precautions Patient also had coffee-ground emesis, GI evaluated the patient today, conservative management --Coffee-ground emesis; no new episodes No hematemesis melena or rectal bleeding H&H stable, GI evaluated, advised to start diet Conservative management, possible follow up as outpatient --Witnessed seizure seizure precautions Ativan when necessary. 1000 mg Keppra twice a day CT head without contrast old CVA, EEG findings reviewed Neurology following, cannot drive Patient has no previous history of seizures --Rhabdomyolysis; trending down Continue IV fluids, CK [id number] Input output monitoring --SU ; vasomotor nephropathy Renal function significantly improved Avoid nephrotoxins --Leukocytosis Discontinue empiric antibiotics No Evidence of infection --Lactic acidosis No Evidence of infection DC empiric antibiotics --Hypertension Moderate control. Continue current antihypertensives When necessary medications , --History of CVA with rt residual deficits Physical therapy occupational to supportive care -- History of anxiety Continue Xanax when necessary --DVT PPX; Heparin Monitor closely and adjust management as needed possible discharge tomorrow if stable Disposition: [id number] HOME UND[facility] Time spent for discharge: 32 min Core Measure Documentation - Palliative Care Palliative Care/ Comfort Measures: Not Applicable - Core Measures Any of the following diagnoses?: none Exam - Constitutional Vitals: Temp Pulse Resp BP Pulse Ox 99.0 F 71 16 177/104 95 06/28/19 08:06 06/28/19 08:06 06/28/19 08:06 06/28/19 08:06 06/28/19 08:06 Plan Activity: advance as tolerated, no driving until cleared by PCP, fall precautions, other (seizure precautions) Diet: low salt Additional Instructions: Seizure precautions. Do not drive. Fall precautions. Advised to see private, neurologist, GI, primary care physician within one week Follow up with: [facility] MD RUFINA [Primary Care Provider] - 7 Days SHELBY HOUGH MD [Staff Physician] - 7 Days FRANKY CARVALHO MD [Staff Physician] - 7 Days Prescriptions: hydrALAZINE [Apresoline TAB] 25 mg PO Q8HR #90 tablet Docusate Sodium [Colace CAP] 100 mg PO BID PRN #30 capsule PRN Reason: Constipation levETIRAcetam [Keppra] 1,000 mg PO BID #60 ud
--- NOTE | 2019-06-28 13:24 | Gastroenterology Progress Note ---
Assessment and Plan - Patient Problems (1) Coffee ground emesis Current Visit: Yes Status: Acute Plan to address problem: - Normal hct without melena, and stable x 24 hours without further vomiting. - No indication for EGD at present. - OK to d/c home on usual ASA and protonix daily therapy. - Will sign off; please call if needed. Subjective Date of service: 06/28/19 Principal diagnosis: Coffee Ground Emesis Interval history: The patient has had no further emesis, and his tolerating meals and pills. He has had no melena, and hct remains normal. Denies abdominal pain. Objective - Constitutional Vitals: Temp Pulse Resp BP Pulse Ox 99.0 F 88 20 177/104 95 06/28/19 08:06 06/28/19 10:00 06/28/19 10:00 06/28/19 08:06 06/28/19 08:06 General appearance: no acute distress - Respiratory Respiratory effort: normal Respiratory: bilateral: CTA - Cardiovascular Rhythm: regular Heart Sounds: Present: S1 & S2 - Gastrointestinal General gastrointestinal: Present: soft, non-tender, non-distended - Neurologic Neurological: other (Hemiparesis (R)) - Labs CBC & Chem 7: 06/27/19 04:28 06/27/19 04:28
[2019-06-28] MEDS ORDERED: APRESOLINE PO SCH (14:00)
[2019-06-28 15:33] VITALS: BP 140/78
[2019-06-29] MEDS ORDERED: PROTONIX PO SCH (10:00)
== END 2019-06-28 15:06 | disposition home or self-care (01) | DRG 557 ==
LOC: ED 15:44 → 4A 20:24
PROVIDERS: ADMIT Internal Medicine; ATTEND Internal Medicine
DX: M62.82 Rhabdomyolysis (principal); N17.0 Acute kidney failure with tubular necrosis; E87.2 Acidosis; I69.351 Hemiplegia and hemiparesis following cerebral infarction affecting right dominant side; R78.81 Bacteremia; R65.10 Systemic inflammatory response syndrome (SIRS) of non-infectious origin without acute organ dysfunction; R56.9 Unspecified convulsions; D72.829 Elevated white blood cell count, unspecified; F41.9 Anxiety disorder, unspecified; I12.9 Hypertensive chronic kidney disease with stage 1 through stage 4 chronic kidney disease, or unspecified chronic kidney disease; N18.9 Chronic kidney disease, unspecified; Z80.42 Family history of malignant neoplasm of prostate; Z79.82 Long term (current) use of aspirin; Z79.899 Other long term (current) drug therapy
CPT/HCPCS: 36415; 70450; 71045; 76770; 80048; 80053; 81001; 82140; 82271; 82436; 82550; 82570; 82805; 82962; 83735; 84156; 84300; 85025; 85610; 87040; 87086; 93005; 93010; 95819; 96361; 96365; 96367; G0378; C9113; J1644; J1953; J2060; J2405; J2543; J3370; J7030; J7040